=== PATIENT | male | born 1950 | race Caucasian/White ===

== ENCOUNTER → 2017-04-17 | Outpatient (CLI) | payer OTHER ==
--- NOTE | 2017-04-17 09:33 | MR ---
EXAMINATION TYPE: MR lumbar spine wo con DATE OF EXAM: 04/17/2017 8:07 AM COMPARISON: NONE HISTORY: Lumbar Radiculopathy Multiplanar, MultiSpin echo imaging of the lumbar spine was performed. L1-L2: Normal disc appearance without desiccation. No herniation, protrusion or disc bulging. No ca nal stenosis is present. Foramina are patent bilaterally. L2-L3: Normal disc appearance without desiccation. No herniation, protrusion or disc bulging. No ca nal stenosis is present. Foramina are patent bilaterally. L3-L4: Mild disc desiccation. Mild circumferential disc bulge with mild effacement of the ventral the keshav sac. Constriction of the thecal sac however no evidence for central stenosis at this time. L4-L5: Mild to moderate disc desiccation. Moderate circumferential disc bulge with associated hypertr ophy of the ligamentum flavum and facet joint arthropathy contributing to at least moderate central s tenosis. There is bilateral foraminal encroachment right greater than left. L5-S1: Normal disc appearance without desiccation. No herniation, protrusion or disc bulging. No ca nal stenosis is present. Foramina are patent bilaterally. Lumbar segments are intact. No paraspinal masses are identified. Conus medullaris has a normal appe arance. IMPRESSION: 1. Degenerative disc disease as discussed. 2. Moderate central stenosis at L4-5. See above.
== END | disposition home or self-care (01) ==
LOC: RADMRIMAIN 07:32
PROVIDERS: ATTEND Family Medicine
DX: M51.16 Intervertebral disc disorders with radiculopathy, lumbar region (principal); M48.061 Spinal stenosis, lumbar region without neurogenic claudication
CPT/HCPCS: 72148

== ENCOUNTER 2019-02-04 07:29 | Day surgery (SDC) | payer MEDICARE, OTHER ==
[2019-02-02 10:13] VITALS: BMI 28.2
[~2019-02-04 07:29] MED LIST: LACTATED RINGERS 1,000 ML IV SCH; LIDOCAINE 1% 20 ML VIAL (10MG/ML) FOR IV START INTRADERMA PRN
[2019-02-04 07:51] VITALS: RESP 16; TEMP 96.8
[2019-02-04] MEDS ORDERED: LIDOCAINE 1% INJ 10MG/ML (20 ML MDV) ONE (08:29)
[2019-02-04] MEDS ORDERED: PROPOFOL 10 MG/ML 20 ML VIAL IV ONE (08:29)
--- NOTE | 2019-02-04 08:47 | P.PCN ---
Date of Procedure: 02/04/19 Procedure(s) Performed: BRIEF HISTORY: Patient is a 68-year-old pleasant white male scheduled for an elective colonoscopy as a part of value should prior history of colon polyps. Last colonoscopy was 5 years ago. PROCEDURE PERFORMED: Colonoscopy. PREOPERATIVE DIAGNOSIS: History of colon polyps. IV sedation per Anesthesia. PROCEDURE: After informed consent was obtained, the patient, was brought into the endoscopy unit. IV sedation was administered by Anesthesia under continuous monitoring. Digital rectal examination was normal. Initially the Olympus CF-160 flexible video colonoscope was then inserted in the rectum, gradually advanced into the cecum without any difficulty. Careful examination was performed as the scope was gradually being withdrawn. Ileocecal valve and the appendiceal orifice were visualized and appeared normal. Prep was fair. Mucosa of the cecum, ascending colon, transverse colon, descending colon, sigmoid colon, and rectum appeared normal. Retroflexion was performed in the rectum and no lesions were seen. The patient tolerated the procedure well. IMPRESSION: Normal-appearing colon from rectum to cecum with no evidence of colitis or colorectal neoplasia. RECOMMENDATIONS: Findings of this examination were discussed with the patient as well as his family. He was advised to have a repeat surveillance colonoscopy in now 5 years from now because of the prior history of colon polyps..
[2019-02-04 09:12] VITALS: BP 126/77; PULSE 68
== END 2019-02-04 09:35 | disposition home or self-care (01) ==
LOC: ORWHC2ENDO 07:29
PROVIDERS: ATTEND Internal Medicine Gastroenterology
DX: Z12.11 Encounter for screening for malignant neoplasm of colon (principal); Z86.010 Personal history of colon polyps; I25.10 Atherosclerotic heart disease of native coronary artery without angina pectoris; N40.0 Benign prostatic hyperplasia without lower urinary tract symptoms; E78.5 Hyperlipidemia, unspecified; Z87.891 Personal history of nicotine dependence; I10 Essential (primary) hypertension; E11.9 Type 2 diabetes mellitus without complications; Z95.5 Presence of coronary angioplasty implant and graft; Z79.02 Long term (current) use of antithrombotics/antiplatelets; Z79.82 Long term (current) use of aspirin; Z79.899 Other long term (current) drug therapy
CPT/HCPCS: J2001; J2704; G0105; 45378

== ENCOUNTER → 2019-05-14 | Outpatient (CLI) | payer MEDICARE, OTHER ==
--- NOTE | 2019-05-16 08:21 | NM ---
EXAMINATION TYPE: NM hepatobiliary w EF DATE OF EXAM: 05/14/2019 COMPARISON: NONE HISTORY: Abdominal clinical findings, epigastric pain and heartburn, reflux and nausea, diarrhea TECHNIQUE: After the intravenous administration of 4.74 mCi Tc 99m Mebrofenin hepatobiliary scintigra phy is performed. Immediate images post injection. FINDINGS: There is satisfactory initial accumulation of tracer by the liver. The gallbladder is visualized wit hin 16 minutes. The small bowel activity is noted within 38 minutes. At one hour 8 ounces of oral e nsure plus is given to mimic CCK and gallbladder ejection fraction is calculated at 57 %, in the norm al range. Therefore there is no scintigraphic evidence of cystic or common bile duct obstruction to suggest acute cholecystitis or gallbladder dyskinesia. IMPRESSION: Exam is within normal limits.
== END | disposition home or self-care (01) ==
LOC: RADNMMAIN 06:55
PROVIDERS: ATTEND Family Medicine
DX: R68.89 Other general symptoms and signs (principal); Z88.2 Allergy status to sulfonamides; Z88.8 Allergy status to other drugs, medicaments and biological substances
CPT/HCPCS: 78226; A9537

== ENCOUNTER → 2020-10-19 | Outpatient (CLI) | payer MEDICARE, OTHER ==
[2020-10-19 08:50] LABS: Basophils % (A) 1 %; Eosinophils # (A) 0.1 k/uL (0-0.7); Eosinophils % (A) 2 %; HCT 43.6 % (39.0-53.0); HGB 15.4 gm/dL (13.0-17.5); Lymphocytes # (A) 1.2 k/uL (1.0-4.8); Lymphocytes % (A) 22 %; MCH 34.4 pg (25.0-35.0); MCHC 35.3 g/dL (31.0-37.0); MCV 97.3 fL (80.0-100.0); Mean Platelet Volume 6.7; Monocytes # (A) 0.4 k/uL (0-1.0); Monocytes % (A) 7 %; Neutrophils # (A) 3.5 k/uL (1.3-7.7); Neutrophils % (A) 67 %; Platelet Count 194 k/uL (150-450); RBC 4.48 m/uL (4.30-5.90); WBC 5.3 k/uL (3.8-10.6)
[2020-10-19 09:00] LABS: African American GFR (CKD) >90 (>60 ml/min/1.73 sqM); Anion Gap 7 mmol/L; Blood Urea Nitrogen 16 mg/dL (9-20); Calcium 8.9 mg/dL (8.4-10.2); Carbon Dioxide 29 mmol/L (22-30); Chloride 106 mmol/L (98-107); Glucose 114 mg/dL (74-99); Non-African American GFR(CKD) 80 (>60 ml/min/1.73 sqM); Potassium 4.4 mmol/L (3.5-5.1); Sodium 142 mmol/L (137-145)
[2020-10-19 09:13] LABS: Prothrombin Time 10.3 sec (9.0-12.0)
--- NOTE | 2020-10-19 09:30 | XR ---
EXAMINATION TYPE: XR chest 2V DATE OF EXAM: 10/19/2020 COMPARISON: Chest x-ray 02/20/2010 HISTORY: Z01.818, preop TECHNIQUE: Frontal and lateral views of the chest are obtained. FINDINGS: There is no focal air space opacity, pleural effusion, or pneumothorax seen. The cardiac silhouette size is within normal limits. The osseous structures are intact, acromion clavicular dara nt arthropathy is noted. IMPRESSION: No acute cardiopulmonary process.
[2020-10-19 09:54] LABS: Appearance,Urine Clear (Clear); Bilirubin,Urine Negative (Negative); Blood,Urine Negative (Negative); Color,Urine Yellow; Glucose,Urine (UA) Negative (Negative); Ketones,Urine Trace (Negative); Leukocyte Esterase,Urine Negative (Negative); Nitrite,Urine Negative (Negative); PH, Urine 6.5 (5.0-8.0); Protein,Urine Negative (Negative); Specific Gravity,Urine 1.017 (1.001-1.035); Urobilinogen,Urine <2.0 mg/dL (<2.0)
== END | disposition home or self-care (01) ==
LOC: LABPAT 08:02
PROVIDERS: ATTEND Orthopaedic Surgery Orthopaedic Surgery of the Spine
DX: Z01.818 Encounter for other preprocedural examination (principal); M48.00 Spinal stenosis, site unspecified; Z79.01 Long term (current) use of anticoagulants
CPT/HCPCS: 36415; 71046; 80048; 81003; 85025; 85610; 85730; 86850; 86900; 86901; 87070

== ENCOUNTER 2020-11-14 11:20 | Day surgery (SDC) | payer MEDICARE, OTHER ==
[2020-10-25 09:21] VITALS: BMI 28.2
[~2020-11-14 11:20] MED LIST changes: +DEXAMETHASONE SOD PHOSPHATE 4 MG/ML 1 ML VIAL IV ONE; +FAMOTIDINE 20 MG/2 ML VIAL IV PRN; +HYDROmorphone 0.5 MG/0.5 ML SYRINGE IVP PRN; -LIDOCAINE 1% 20 ML VIAL (10MG/ML) FOR IV START INTRADERMA PRN; +ONDANSETRON 4 MG/2 ML VIAL IVP ONE; +ceFAZolin 1,000 MG in SODIUM CHLORIDE 0.9% IRRIGATIO 1,000 ML IRRIGATION PRN
[2020-11-14 11:48] VITALS: TEMP 97.4
[2020-11-14 11:57] LABS: Glucose,Whole Blood 104 mg/dL (75-99)
[2020-11-14] MEDS ORDERED: MIDAZOLAM 2 MG/2 ML VIAL ONE (12:10)
[2020-11-14 12:55] VITALS: RESP 16
--- NOTE | 2020-11-14 13:08 | P.PN ---
Progress Note - Text Progress Note Date: 11/14/20 The patient was scheduled for lumbar decompression and fusion today with our service. He had been evaluated preoperatively and had seen his insurance administrator as well. He has been cleared by medicine and cardiology for his surgery today. However today in preoperative holding area and then in the operating room the patient was found have significant episodes of bradycardia and bigeminy. He was essentially asymptomatic and talking and conversant entire time. He did not complain of any shortness breath or chest pain. He was evaluated in the operating room as he would have bouts of regular sinus rhythm. He went into a bradycardic state with bigeminy which was prolonged. He was monitored by anesthesia and had treatment but was not having any response despite this. The events were recorded as per anesthesia service. Despite having cardiac clearance the patient was having abnormal cardiac rhythm and they're unable to have adequate blood pressure monitoring. Anesthesia did not feel comfortable with proceeding with the surgical procedure today. We discussed this and I agree. We will cancel his surgery for today. I discussed this with the family. I've been trying to get hold of his family. He understands the situation with his cardiac rhythms and we will was on surgery. He is currently he is symptomatically and the plan from anesthesia is to allow him to be discharged home with close follow-up with his insurance administrator. Our office will contact him in regard for possible rescheduling and see us evaluated again by cardiology.
[2020-11-14 13:56] VITALS: BP 149/88; PULSE 52
== END 2020-11-14 14:24 | disposition home or self-care (01) ==
LOC: OR 11:20 → EDSTATUS 12:45 → OR 14:24
PROVIDERS: ATTEND Orthopaedic Surgery Orthopaedic Surgery of the Spine
DX: M47.816 Spondylosis without myelopathy or radiculopathy, lumbar region (principal); Z53.8 Procedure and treatment not carried out for other reasons; M43.16 Spondylolisthesis, lumbar region; M79.18 Myalgia, other site; Z20.822 Contact with and (suspected) exposure to COVID-19; R00.1 Bradycardia, unspecified; M51.36 Other intervertebral disc degeneration, lumbar region; I11.9 Hypertensive heart disease without heart failure; E11.9 Type 2 diabetes mellitus without complications; E78.5 Hyperlipidemia, unspecified; H91.90 Unspecified hearing loss, unspecified ear; Z85.828 Personal history of other malignant neoplasm of skin; Z97.3 Presence of spectacles and contact lenses; Z79.82 Long term (current) use of aspirin; Z79.899 Other long term (current) drug therapy; Z88.8 Allergy status to other drugs, medicaments and biological substances; Z98.890 Other specified postprocedural states; Z87.891 Personal history of nicotine dependence
CPT/HCPCS: 86900; 86901; 86850; 87635; 36415; 22630; J2250; J2405

== ENCOUNTER → 2020-11-26 | Outpatient (CLI) | payer MEDICARE, OTHER ==
[2020-11-26 11:42] LABS: African American GFR (CKD) 79.5 (60.0-200.0); Anion Gap 5.4 mmol/L (4.00-12.00); BUN/Creat Ratio 19.09 Ratio (12.00-20.00); Calcium 8.6 mg/dL (8.7-10.3); Carbon Dioxide 28.6 mmol/L (21.6-31.8); Magnesium 2.3 mg/dL (1.5-2.4); Non-African American GFR(CKD) 68.6 (60.0-200.0); Potassium 4.6 mmol/L (3.5-5.5)
== END | disposition home or self-care (01) ==
LOC: LABWHC1 07:02
PROVIDERS: ATTEND Internal Medicine Clinical Cardiac Electrophysiology
DX: I25.10 Atherosclerotic heart disease of native coronary artery without angina pectoris (principal); I49.3 Ventricular premature depolarization
CPT/HCPCS: 36415; 80048; 83735

== ENCOUNTER → 2021-01-18 | Outpatient (CLI) | payer MEDICARE, OTHER ==
[2021-01-18 08:21] LABS: HGB 16.4 gm/dL (13.0-17.5); MCH 34.8 pg (25.0-35.0); MCV 99.4 fL (80.0-100.0); Macrocytosis Slight; Mean Platelet Volume 7.8; Platelet Count 183 k/uL (150-450); Poikilocytosis Slight; RBC 4.73 m/uL (4.30-5.90); RDW 13.9 % (11.5-15.5); WBC 6.9 k/uL (3.8-10.6)
[2021-01-18 08:28] LABS: African American GFR (CKD) >90 (>60 ml/min/1.73 sqM); Anion Gap 8 mmol/L; Blood Urea Nitrogen 18 mg/dL (9-20); Carbon Dioxide 27 mmol/L (22-30); Chloride 106 mmol/L (98-107); Non-African American GFR(CKD) 89 (>60 ml/min/1.73 sqM); Potassium 4.2 mmol/L (3.5-5.1); Sodium 141 mmol/L (137-145)
== END | disposition home or self-care (01) ==
LOC: LABPAT 06:59
PROVIDERS: ATTEND Internal Medicine Clinical Cardiac Electrophysiology
DX: Z01.812 Encounter for preprocedural laboratory examination (principal); R00.2 Palpitations
CPT/HCPCS: 36415; 80051; 82565; 84520; 85027

== ENCOUNTER 2021-01-31 11:08 | Inpatient (IN) | payer MEDICARE, OTHER ==
[~2021-01-31 11:08] MED LIST changes: -DEXAMETHASONE SOD PHOSPHATE 4 MG/ML 1 ML VIAL IV ONE; -FAMOTIDINE 20 MG/2 ML VIAL IV PRN; -HYDROmorphone 0.5 MG/0.5 ML SYRINGE IVP PRN; -LACTATED RINGERS 1,000 ML IV SCH; -ONDANSETRON 4 MG/2 ML VIAL IVP ONE; +SODIUM CHLORIDE 0.9% 1,000 ML IV SCH; -ceFAZolin 1,000 MG in SODIUM CHLORIDE 0.9% IRRIGATIO 1,000 ML IRRIGATION PRN
[2021-01-31 12:11] LABS: Glucose,Whole Blood 107 mg/dL (75-99)
[2021-01-31] MEDS ORDERED: HEPARIN SODIUM,PORCINE 10,000 UNIT/ML 1 ML VIAL ONE (13:37)
[2021-01-31] MEDS ORDERED: fentaNYL (PF) 50 MCG/ML 2 ML AMP ONE (13:37)
[2021-01-31] MEDS ORDERED: diphenhydrAMINE 50 MG/ML 1 ML VIAL ONE (13:37)
[2021-01-31] MEDS ORDERED: MIDAZOLAM 2 MG/2 ML VIAL ONE (13:37)
[2021-01-31] MEDS ORDERED: HYDROmorphone (PF) 1 MG/ML ONE (13:37)
[2021-01-31] MEDS ORDERED: PROPOFOL 10 MG/ML 20 ML VIAL IV ONE (13:37)
[2021-01-31] MEDS ORDERED: LIDOCAINE 1% INJ 10MG/ML (20 ML MDV) ONE (13:38)
[2021-01-31] MEDS ORDERED: HEPARIN SOD,PORK IN 0.45% NACL 25,000 UNIT in 0.45% NACL 1 250ML.BAG IV ONE (13:40)
[2021-01-31] MEDS ORDERED: HEPARIN SODIUM (1,000 UNIT/ML) 1,000 UNIT in SODIUM CHLORIDE 0.9% 1,000 ML IRRIGATION ONE (13:41)
[2021-01-31] MEDS ORDERED: LIDOCAINE 1% INJ 10MG/ML (20 ML MDV) SQ ONE (14:21)
[2021-01-31] MEDS ORDERED: IOPAMIDOL-300 50ML BTL INJ ONE (16:17)
--- NOTE | 2021-01-31 16:29 | P.HPCAR ---
History of Present Illness This is Dr. 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 Failed sotalol 80 mg twice daily Known coronary artery disease but with preserved LV systolic function Type 2 diabetes Hypertension PLAN: EPS and ablation of the PVC focus in the left ventricle HPI Patient has had recurrent palpitations and ventricular bigeminy Very high PVC blood from the left ventricle line we treated with sotalol but this to not suppress the PVCs An EP study and ablation was recommended on account of high PVC but Presently the patient has preserved LV systolic function and has known coronary artery disease ROS: No fever chills or rigors, no cough, phlegm or expectoration, no nausea, vomiting or diarrhea, no hematuria, dysuria, no musculoskeletal complaints, no strokes or seizures, no skin lesions. EXAMINATION: Temperature 98.3, respirations 73, blood pressure 162/90 Breath sounds are clear no rhonchi no crackles No JVD line no lower extremity edema Soft abdomen nontender Breath sounds are clear S1-S2 is normal REVIEW OF LABS, ECG & MEDICAL DATA Glucose 107 PVCs and right bundle branch block morphology with upright QRS is in the inferior leads and negatively rate QRS is in the high lateral leads Upright QRS is all across the precordium Physical Exam Vitals: Vital Signs Temp Pulse Resp BP Pulse Ox 01/31/21 12:15 98.3 F 73 16 162/90 99 Intake and Output 01/31/21 01/31/21 01/31/21 06:59 14:59 22:59 Intake Total 616 Output Total 900 Balance 616 -900 Intake: IV 616 Output: Urine 900 Other: Weight 98.8 kg Past Medical History Past Medical History: Diabetes Mellitus, Hyperlipidemia, Hypertension, Prostate Disorder Additional Past Medical History / Comment(s): SEE H & P PROVIDED BY DR. MEDINA REGARDING CARDIAC HISTORY. Diet control type 2 diabetes,. Spinal stenosis. Hx skin canCER. History of Any Multi-Drug Resistant Organisms: None Reported Past Surgical History: Heart Catheterization With Stent, Orthopedic Surgery Additional Past Surgical History / Comment(s): 11/14/20 WAS SCHEDULED FOR LUMBAR DECOMPRESION AND FUSION , HOWEVER, IT WAS CANCELLED DUE TO CARDIAC ARRYTHMIA. rt knee surgery. lt elbow surgery. colonoscopy. lt hand sx Past Anesthesia/Blood Transfusion Reactions: No Reported Reaction Date of Last Stent Placement:: 2008 Past Psychological History: No Psychological Hx Reported Smoking Status: Former smoker Past Alcohol Use History: None Reported Additional Past Alcohol Use History / Comment(s): QUIT SMOKING 40 + YEARS AGO Past Drug Use History: None Reported - Past Family History Mother Family Medical History: No Reported History Physical Examination Vital Signs Temp Pulse Resp BP Pulse Ox 01/31/21 12:15 98.3 F 73 16 162/90 99 Intake and Output 01/31/21 01/31/21 01/31/21 06:59 14:59 22:59 Intake Total 616 Output Total 900 Balance 616 -900 Intake: IV 616 Output: Urine 900 Other: Weight 98.8 kg Results Current Medications Generic Name Dose Route Start Last Admin Trade Name Shawnq PRN Reason Stop Dose Admin Sodium Chloride 1,000 mls @ 20 mls/hr 01/31/21 07:25 01/31/21 12:14 Saline 0.9% IV 03/02/21 07:26 400 mls .Q24H BABAR Administration Intake and Output 01/31/21 01/31/21 01/31/21 06:59 14:59 22:59 Intake Total 616 Output Total 900 Balance 616 -900 Intake: IV 616 Output: Urine 900 Other: Weight 98.8 kg Patient Weight 02/01/21 06:59 Weight 98.8 kg
--- NOTE | 2021-01-31 16:33 | P.PRLE ---
RE: [place] Dear Emilyyeys Hawkins has ventricular bigeminy which has failed sotalol therapy He underwent a diagnostic EP study and successful radiofrequency ablation of the PVC focus This was on the anterior lateral base of the left ventricle Successful RF ablation was performed without any acute complications I will stop sotalol completely at this time he Thank you for entrusting me with the care of the patient Warm regards Sincerely David Medina
[2021-01-31] MEDS ORDERED: ACETAMINOPHEN TAB 325 MG TAB PO PRN (16:34)
[2021-01-31] MEDS ORDERED: ACETAMINOPHEN IV (For NPO) 1,000 MG in EMPTY BAG 1 BAG IVPB ONE (16:34)
--- NOTE | 2021-01-31 16:59 | P.EPPROC ---
- EP Procedure Note Electrophysiology Procedure Note: Diagnosis Ventricular bigeminy, frequent PVCs Failed sotalol therapy Coronary artery disease preserved LV systolic function Hypertension, Procedures performed Diagnostic EP study with attempted arrhythmia induction 3-D mapping PVC/VT ablation Intracardiac echo LV pacing and recording Details Patient was brought to the EP lab in a fasting state with informed consent was obtained prior to the procedure procedures performed under conscious sedation To venous sheaths placed in the right femoral vein, one venous sheaths in the right femoral artery The patient was having very frequent PVCs with a right bundle branch block morphology upright QRS is in the inferior leads and all precordial leads and a deep negative in aVL and Candor negative in lead 1 with a small initial R wave A long sheath was placed in the right femoral artery into the aorta The Pentaray catheter was placed for mapping Intracardiac echo cath was placed and diagnostic catheters were placed in the high right atrium and right ventricle Baseline measurements were as follows sinus cycle length 900 ms with frequent PVCs underlying right bundle branch block morphology, QRS 151 ms AR 159 and QT 446 ms AH 71 and HV 58 ms Sinus recovery times a 600, 540 ms were 802, 1207 and 1048 ms AV node Wenckebach block 3 and 50 ms Later burst stimulation was performed from the left ventricle for 4 ms down to 300 ms without induction of any VT Patient was having very frequent PVCs A Pentaray cath was placed in the left ventricle Intracardiac echo catheter was placed in the right atrium and in the right ventricle 3-D anatomical mapping of the aortic root aortic cusps and LV was performed. A small clear pericardial space was noted at the base of the left ventricle The Pentaray cath was placed in left ventricle and scar mapping as well as activation mapping was performed The earliest site of activation was found in the anterolateral aspect of the left ventricle just beyond the lytic root Later the mapping and ablation cath was placed and further detailed mapping was performed and the earliest site was mapped very carefully At the earliest site, a very early DP negative unipolar electrogram of -30 ms prior to the onset of the QRS is noted. The bipolar electrogram was also -30 ms prior to the onset of the QRS at the site RF energy 40 once was started and within 30 seconds the PVCs resolved Several RF lesions applied to the site Following that high output pacing was performed and non-capture was noted Following that burst ablation was performed from the LVOT area and from the base of the left ventricle but no inducible VT noted Patient is seen at IV heparin through the procedure After waiting for about 20 minutes no for the PVCs are noted and all catheters were removed Vascade was applied for the venous punctures Angio-Seal for the arterial puncture Patient tolerated the procedure well without any acute complications LV function was normal intracardiac echo Small pericardial space noted before starting the mapping procedure There is no change at the end of the procedure. Intracardiac echo and the pericardial space Result Successful PVC ablation in the left ventricle The PVC was eliminated at the site of earliest A grams with both bipolar and unipolar signals, -30 ms before the onset of the QRS width deep negative unipolar signals Plan Stop sotalol Continue aspirin
[2021-01-31] MEDS: ATORVASTATIN 40 MG TAB PO SCH (19:40)
[2021-01-31] MEDS: TAMSULOSIN 0.4 MG CAP.ER.24H PO SCH (19:40)
[2021-01-31] MEDS: METOPROLOL TARTRATE 12.5 MG TAB PO SCH (19:40)
[2021-02-01 09:39] LABS: Basophils % (A) 0 %; Eosinophils # (A) 0.1 k/uL (0-0.7); Eosinophils % (A) 1 %; HCT 45.1 % (39.0-53.0); HGB 15.6 gm/dL (13.0-17.5); Lymphocytes # (A) 1.1 k/uL (1.0-4.8); Lymphocytes % (A) 12 %; MCH 34.2 pg (25.0-35.0); MCHC 34.6 g/dL (31.0-37.0); MCV 98.8 fL (80.0-100.0); Macrocytosis Slight; Mean Platelet Volume 7.4; Monocytes # (A) 0.6 k/uL (0-1.0); Monocytes % (A) 7 %; Neutrophils % (A) 78 %; Platelet Count 171 k/uL (150-450); Poikilocytosis Slight; RBC 4.56 m/uL (4.30-5.90); RDW 14.3 % (11.5-15.5); WBC 8.9 k/uL (3.8-10.6)
--- NOTE | 2021-02-01 09:42 | US ---
EXAMINATION TYPE: US lower ext pseudo artery RT DATE OF EXAM: 02/01/2021 COMPARISON: NONE CLINICAL HISTORY: s/p ablation. Recent right groin approach cardiac ablation EXAM PERFORMED: Grayscale and color Doppler duplex imaging performed of the groin, post cardiac adriana ter to assess for pseudoaneurysm. SIDE PERFORMED: Right Color and Waveform Doppler performed to assess for the presence of pseudoaneurysm; Difficult and limited study due to having to scan around fem stop in right groin 12.7 x 3.8 x 4.6cm complex area within right groin that appears to extend down into right side of scr otal sac, visualized portions appear to have no flow at this time. IMPRESSION: Large inguinal hematoma. No pseudoaneurysm formation identified.
[2021-02-01] MEDS: ASPIRIN 81 MG PO SCH (09:53)
[2021-02-01] MEDS: lisinopriL 20 MG TAB PO SCH (09:53)
[2021-02-01] MEDS: METOPROLOL TARTRATE 12.5 MG TAB PO SCH ×2 (09:53→19:38)
[2021-02-01] MEDS: amLODIPine 5 MG TAB PO SCH (09:53)
--- NOTE | 2021-02-01 11:31 | US ---
EXAMINATION TYPE: US lower ext pseudo artery RT DATE OF EXAM: 02/01/2021 COMPARISON: NONE CLINICAL HISTORY: ? pseudoaneurysm R groin. Recent right groin approach cardiac ablation, doctor want ed a rescan after fem stop was removed EXAM PERFORMED: Grayscale and color Doppler duplex imaging performed of the groin, post cardiac adriana ter to assess for pseudoaneurysm. SIDE PERFORMED: Right Color and Waveform Doppler performed to assess for the presence of pseudoaneurysm; Is there ultrasound evidence of a pseudoaneurysm: yes, 7.6 x 2.3 x 3.8cm pseudoaneurysm seen that ap pears to be partially thrombosed, neck not seen well due to groin swelling, pseudoaneurysm appears to be separate from and superior to large hematoma seen on previous exam Is there evidence of AV shunting: no Is there a fluid collection present: large hematoma evaluated on previous exam IMPRESSION: 1. Following removal of the fem stop, pseudoaneurysm into the hematoma is identified.
--- NOTE | 2021-02-01 12:00 | P.PN ---
Subjective Progress Note Date: 02/01/21 HISTORY OF PRESENT ILLNESS: This is 70-year-old male who underwent successful PVC ablation in the left ventricle with Dr. Medina. Patient examined this morning at the bedside. He de nies chest pain or pressure. He denies shortness of breath. The patient complains of discomfort of the right groin. He states he got up to go to the bathroom and felt something "pop". Patient does have a large hematoma noted to right groin. PHYSICAL EXAM: VITAL SIGNS: Reviewed. GENERAL: Well-developed in no acute distress. NECK: Supple. No JVD or thyromegaly LUNGS: Respirations even and unlabored. Lungs essentially clear to auscultation bilaterally. HEART: Regular rate and rhythm. S1 and S2 heard. EXTREMITIES: Normal range of motion. No clubbing or cyanosis. Peripheral pulses intact. No lower extremity edema. Hematoma noted to right groin. ASSESSMENT: Ventricular bigeminy/frequent PVCs, status post PVC ablation in the right ventricle Hypertension Right groin hematoma PLAN: Continue current cardiac medications Femstop to be applied to right groin Obtain US to assess for pseudoaneurysm Further recommendations pending patient's course Nurse practitioner note has been reviewed by physician. Signing provider agrees with the documented findings, assessment, and plan of care. Objective - Vital Signs Vital signs: Vital Signs Temp 98.2 F 02/01/21 09:21 Pulse 78 02/01/21 09:21 Resp 17 02/01/21 09:21 BP 158/87 02/01/21 09:21 Pulse Ox 94 L 02/01/21 09:21 Intake & Output 01/31/21 02/01/21 02/01/21 18:59 06:59 18:59 Intake Total 616 Output Total 1120 120 Balance -504 -120 Weight 98.8 kg Intake: IV 616 Output: Urine 1120 120 Other: Voiding Method Urinal # Voids 1 - Labs CBC & Chem 7: 02/01/21 09:22 Labs: Abnormal Lab Results - Last 24 Hours (Table) 01/31/21 Range/Units 12:05 POC Glucose (mg/dL) 107 H (75-99) mg/dL
[2021-02-01] MEDS ORDERED: THROMBIN (BOVINE) 5,000 UNIT VIAL MISCELLANE ONE (13:00)
--- NOTE | 2021-02-01 14:34 | P.PN ---
Progress Note - Text Progress Note Date: 02/01/21 evaluated right groin for requested treatment of pseudoaneurysm. [place] vessels not well-defined under ultrasound, cannot delineate extent of leak, neck of pseudoaneurysm. Defer to vascular surgery, Petra Carmichael informed via Perfect serve.
--- NOTE | 2021-02-01 15:32 | US ---
Discontinued pseudoaneurysm compression with thrombin injection HISTORY: Abnormal right lower extremity Doppler duplex, pseudoaneurysm status post catheterization Ultrasound performed in the right grown for evaluation of patient's pseudoaneurysm. Real-time using grayscale, color Doppler imaging the [place] vasculature in the right groin was not we ll defined. A definitive neck was not identified with certainty. IMPRESSION: Percutaneous treatment of patient's pseudoaneurysm was aborted due to poor definition of patient's pseudoaneurysm, recommend vascular surgery consult, Lakisha Carmichael informed by sridevi paulino .
[2021-02-01] MEDS: ATORVASTATIN 40 MG TAB PO SCH (19:38)
[2021-02-01] MEDS: TAMSULOSIN 0.4 MG CAP.ER.24H PO SCH (19:38)
--- NOTE | 2021-02-01 21:30 | CT ---
EXAMINATION TYPE: CT lower extremity RT w con DATE OF EXAM: 02/01/2021 COMPARISON: None HISTORY: Right femoral pseudoaneurysm. CT DLP: 1046.6 mGycm Automated exposure control for dose reduction was used. CONTRAST: Performed with IV Contrast, patient injected with 100ml mL of Isovue 300. Images obtained from the mid ileum to the proximal tibia with IV contrast. There are 3-D post process ed images. There is arterial flow in the right external iliac artery and internal iliac artery. There is arteria l flow in the right femoral artery. There is contrast pooling seen in the soft tissues anterior to th e proximal right femoral artery which is in multiple areas which are contiguous. This is consistent w ith large pseudoaneurysm. This measures overall 4 x 1.5 cm. There is extensive soft tissue swelling a nd increased density anterior to the right femoral artery consistent with hematoma over the right cipriano in. This extends into the right scrotum. The mid and distal femoral artery appear normal. Popliteal artery appears normal. The tibial artery i s intact. I see no evidence of arterial stenosis. IMPRESSION: Large pseudoaneurysm anterior to the femoral artery. There is surrounding right groin hematoma. Subcu taneous edema and swelling and bruising.
[2021-02-02] MEDS: ASPIRIN 81 MG PO SCH (08:36)
[2021-02-02] MEDS: lisinopriL 20 MG TAB PO SCH (08:36)
[2021-02-02] MEDS: METOPROLOL TARTRATE 12.5 MG TAB PO SCH ×2 (08:36→19:43)
[2021-02-02] MEDS: amLODIPine 5 MG TAB PO SCH (08:36)
--- NOTE | 2021-02-02 10:04 | P.PN ---
Subjective Progress Note Date: 02/02/21 This is 70-year-old gentleman was brought in for outpatient procedure for ablation of the PVCs. Patient had successful procedure done by Dr. Medina. Patient apparently had some problem with Angio-Seal and developed hematoma under pseudoaneurysm. Patient had ultrasound and also computed tomography scan. Radiologist to try to close the aneurysm but could not find it on the ultrasound. Computed tomography scan however showed a large pseudoaneurysm along with hematoma. Surgical consult was requested and waiting for Dr. Rowley 's recommendations regarding further management. Patient is still complaining of pain. He does have some swelling in the groin but no oozing or bleeding from the site. Denies any chest pain. Vital signs are stable Objective - Vital Signs Vital signs: Vital Signs Temp 98.1 F 02/02/21 07:00 Pulse 90 02/02/21 07:00 Resp 16 02/02/21 07:00 BP 115/78 02/02/21 07:00 Pulse Ox 96 02/02/21 07:00 Intake & Output 02/01/21 02/02/21 02/02/21 18:59 06:59 18:59 Output Total 120 Balance -120 Output: Urine 120 Other: Voiding Method Urinal # Voids 1 3 - Exam GENERAL EXAM: Patient is alert and oriented and doesn't appear to be in any acute distress HEENT: Normocephalic. Normal reaction of pupils, equal size, normal range of extraocular motion. No erythema or exudates in the throat. NECK: No masses, no nuchal rigidity. CHEST: No chest wall deformity. LUNGS: Equal air entry with no crackles or wheeze. HEART: S1 and S2 normal with no audible mumurs or gallops. Regular rhythm, femorals equal on both sides.. ABDOMEN: No hepatosplenomegaly, normal bowel sounds, no guarding or rigidity. SKIN: No rashes CENTRAL NERVOUS SYSTEM: No focal deficits. EXTREMITIES: No cyanosis, clubbing or edema. Swelling in the right groin hematomas and ecchymosis of the scrotum - Labs CBC & Chem 7: 02/01/21 09:22 Assessment and Plan (1) Pseudoaneurysm Current Visit: Yes Status: Acute Code(s): I72.9 - ANEURYSM OF UNSPECIFIED SITE SNOMED Code(s): 536683468 (2) PVC's (premature ventricular contractions) Current Visit: Yes Status: Acute Code(s): I49.3 - VENTRICULAR PREMATURE DEPOLARIZATION SNOMED Code(s): 41837704 Plan: Patient is status post ablation for PVCs. Developed a pseudoaneurysm and hematoma. Waiting for vascular surgical input regarding management of the pseudoaneurysm.
[2021-02-02] MEDS ORDERED: LIDOCAINE 1% INJ 10MG/ML (20 ML MDV) SQ ONE (16:26)
[2021-02-02] MEDS ORDERED: THROMBIN (BOVINE) 5,000 UNIT VIAL MISCELLANE ONE ×3 (16:45→17:24)
--- NOTE | 2021-02-02 17:49 | P.OP ---
Date of Procedure: 02/02/21 Preoperative Diagnosis: Right common femoral artery pseudoaneurysm. Postoperative Diagnosis: Same. Procedure(s) Performed: Ultrasound-guided thrombin injection of right common femoral artery pseudoaneurysm. Implants: None Anesthesia: local (1% Xylocaine.) Surgeon: Marco A Bear Estimated Blood Loss (ml): 3 IV fluids (ml): 0 Urine output (ml): 0 Pathology: none sent Condition: stable Disposition: no change Indications for Procedure: Patient is a 70-year-old male who recently underwent cardiac ablation via right femoral artery approach. Post procedure he was found be suffering from a relatively large pseudoaneurysm. Workup of this demonstrated in my opinion a 4 mm neck as imaged on computed tomography scan. Was felt the patient to would be a good candidate for thrombin injection to control the pseudoaneurysm. The procedure, risks and benefits were discussed with the patient and the patient was proceed. Description of Procedure: Patient was laid supine in his bed the right inguinal area sterilely prepped in usual manner. Utilizing ultrasound guidance the pseudoaneurysm was identified. 1% Xylocaine was utilized for local anesthesia. Through this anesthetized area a spinal needle was advanced under ultrasound guidance into the pseudoaneurysm where a 2000 units of thrombin was injected to cause thrombosis of the pseudoaneurysm. The patient remained stable with a palpable dorsalis pedis pulse which he had prior to the beginning of the procedure. Plan: Overnight observation with repeat ultrasound of his pseudoaneurysm tomorrow. Assuming repeat ultrasound demonstrates a continued thrombosis no further recommendations will be forthcoming.
[2021-02-02] MEDS: TAMSULOSIN 0.4 MG CAP.ER.24H PO SCH (19:42)
[2021-02-02] MEDS: ATORVASTATIN 40 MG TAB PO SCH (19:42)
[2021-02-03] MEDS: lisinopriL 20 MG TAB PO SCH (08:00)
[2021-02-03] MEDS: METOPROLOL TARTRATE 12.5 MG TAB PO SCH (08:00)
[2021-02-03] MEDS: ASPIRIN 81 MG PO SCH (08:00)
[2021-02-03] MEDS: amLODIPine 5 MG TAB PO SCH (08:00)
--- NOTE | 2021-02-03 11:46 | P.DS ---
Providers Date of admission: 02/02/21 11:10 Attending physician: David Medina Consults: 02/01/21 14:51 Consult Physician Routine Consulting Provider: Alexsander Rowley Consult Reason/Comments: psuedo aneursym of r groin post ep studdy Do you want consulting provider notified?: Yes Primary care physician: Hunter Tamayo MD - Discharge Diagnosis(es) (1) Pseudoaneurysm Current Visit: Yes Status: Acute (2) PVC's (premature ventricular contractions) Current Visit: Yes Status: Acute Hospital Course: This patient came as an outpatient for ablation for PVCs. Patient had a successful procedure. Apparently there was probably the closer device, Angio-Seal. Patient developed a hematoma and pseudoaneurysm in the right groin. Radiologist could not infuse thrombin because of poor visualization. Computed tomography scan however confirm the presence of pseudoaneurysm. Yesterday vascular surgeon was able to inject thrombin. Patient is feeling much better. The surgeons suggested that patient could be discharged home as long as the ultrasound shows proper closure of the pseudoaneurysm. Patient is feeling better. His pain is much better. His lungs are clear. Heart is regular. As long as this study shows proper findings and comfortable with Dr. Power, the she could be discharged home. Follow-up with Dr. Medina as an outpatient. Follow home medication except discontinuing sotalol Plan - Discharge Summary Discharge Rx Participant: No New Discharge Prescriptions: Discontinued Glasgow-3/Dha/Epa/Fish Oil [Fish Oil EC 1,200 mg Softgel] 1 each PO DAILY Sotalol [Betapace] 40 mg PO BID No Action Atorvastatin [Lipitor] 40 mg PO HS Alfuzosin HCl [Uroxatral] 10 mg PO HS valACYclovir HCL [Valacyclovir] 1,000 mg PO HS Tolterodine [Detrol] 2 mg PO QAM Metoprolol Tartrate [Lopressor] 12.5 mg PO BID Vitamin B Complex 1 each PO DAILY Ubidecarenone [Co Q-10] 400 mg PO DAILY Ergocalciferol [Vitamin D2 (DRISDOL)] 50,000 units PO SUWE Cinnamon Bark [Cinnamon] 2,000 mg PO DAILY Alpha Lipoic Acid. 600 mg PO DAILY Magnesium Oxide 100 mg PO DAILY amLODIPine BESYLATE/BENAZEPRIL [Lotrel 5-40 MG] 1 cap PO QAM Aspirin [Adult Low Dose Aspirin EC] 81 mg PO DAILY Discharge Medication List Alfuzosin HCl [Uroxatral] 10 mg PO HS 03/29/14 [History] Atorvastatin [Lipitor] 40 mg PO HS 03/29/14 [History] valACYclovir HCL [Valacyclovir] 1,000 mg PO HS 03/29/14 [History] Alpha Lipoic Acid. 600 mg PO DAILY 02/02/19 [History] Cinnamon Bark [Cinnamon] 2,000 mg PO DAILY 02/02/19 [History] Ergocalciferol [Vitamin D2 (DRISDOL)] 50,000 units PO SUWE 02/02/19 [History] Metoprolol Tartrate [Lopressor] 12.5 mg PO BID 02/02/19 [History] Tolterodine [Detrol] 2 mg PO QAM 02/02/19 [History] Ubidecarenone [Co Q-10] 400 mg PO DAILY 02/02/19 [History] Vitamin B Complex 1 each PO DAILY 02/02/19 [History] amLODIPine BESYLATE/BENAZEPRIL [Lotrel 5-40 MG] 1 cap PO QAM 10/25/20 [History] Aspirin [Adult Low Dose Aspirin EC] 81 mg PO DAILY 01/28/21 [History] Magnesium Oxide 100 mg PO DAILY 01/28/21 [History] Follow up Appointment(s)/Referral(s): David Medina MD [STAFF PHYSICIAN] - 1 Week Patient Instructions/Handouts: Cardiac Ablation (DC) Activity/Diet/Wound Care/Special Instructions: Post EP study - Ablation instructions 1. Keep access sites dry for 2 days. 2. No heavy lifting or straining for 2 days. 3. Avoid bending the hips repeatedly for 2 days. 4. You may go up and down stairs slowly Call if the following is noted 1. Bleeding, increasing swelling or pain at the access sites. 2. Increasing chest discomfort, especially upon taking a deep breath. 3. Increasing shortness of breath, at rest or with exertion. 4. Undue cough / phlegm 5. Difficulty or pain while swallowing. 6. Pain or change in color in the extremities. 7. Fever, chills, rigors. 8. Increasing headache or neurologic symptoms. 9. Dizziness, fainting, palpitations Stop sotalol Stop fish oil Continue other medications Discharge Disposition: HOME SELF-CARE
--- NOTE | 2021-02-03 14:18 | US ---
EXAMINATION TYPE: US lower ext pseudo artery RT DATE OF EXAM: 02/03/2021 COMPARISON: NONE CLINICAL HISTORY: pseudoaneurysm. EXAM PERFORMED: Grayscale and color Doppler duplex imaging performed of the groin, post cardiac adriana ter to assess for pseudoaneurysm. SIDE PERFORMED: Right side Color and Waveform Doppler performed to assess for the presence of pseudoaneurysm; Is there ultrasound evidence of a pseudoaneurysm: Yes Is there evidence of AV shunting: No Is there a fluid collection present: Yes There is irregular hypoechoic area measuring 5.4 x 2 cm consistent with thrombosed pseudoaneurysm. No blood flow seen in the pseudoaneurysm post injection. IMPRESSION:
[2021-02-03 14:25] VITALS: BP 144/72; PULSE 74; RESP 17; TEMP 98.1
--- NOTE | 2021-02-03 14:38 | P.PN ---
Progress Note - Text Progress Note Date: 02/03/21 Reviewed ultrasound of the femoral artery. Pseudoaneurysm is thrombosed. Patient has palpable peripheral pulses per nursing and ok for discharge home from a vascular standpoint.
== END 2021-02-03 14:56 | disposition home or self-care (01) | DRG 274 ==
LOC: CATHEP 11:08 → 6NMEDSUR 16:16 → CATHEP 02-02 11:10 → 6NMEDSUR 02-02 11:10
PROVIDERS: ADMIT Internal Medicine Clinical Cardiac Electrophysiology; ATTEND Internal Medicine Clinical Cardiac Electrophysiology
PROC: 4A023FZ Measurement of Cardiac Rhythm, Percutaneous Approach (ICD-10-PCS; 2021-01-31)
PROC: 4A0234Z Measurement of Cardiac Electrical Activity, Percutaneous Approach (ICD-10-PCS; 2021-01-31)
PROC: 02K83ZZ Map Conduction Mechanism, Percutaneous Approach (ICD-10-PCS; 2021-01-31)
PROC: 02583ZZ Destruction of Conduction Mechanism, Percutaneous Approach (ICD-10-PCS; 2021-01-31 12:30)
PROC: 3E053GC Introduction of Other Therapeutic Substance into Peripheral Artery, Percutaneous Approach (ICD-10-PCS; principal; 2021-02-02)
DX: I72.4 Aneurysm of artery of lower extremity (principal); S30.1XXA Contusion of abdominal wall, initial encounter; E11.9 Type 2 diabetes mellitus without complications; E78.5 Hyperlipidemia, unspecified; I49.3 Ventricular premature depolarization; I45.10 Unspecified right bundle-branch block; I25.10 Atherosclerotic heart disease of native coronary artery without angina pectoris; I10 Essential (primary) hypertension; Z85.828 Personal history of other malignant neoplasm of skin; Z87.891 Personal history of nicotine dependence; Z86.79 Personal history of other diseases of the circulatory system; Z88.8 Allergy status to other drugs, medicaments and biological substances
CPT/HCPCS: 36002; 76536; 85025; 93654; 93662; 93975

== ENCOUNTER → 2021-04-04 | Outpatient (CLI) | payer MEDICARE, OTHER ==
--- NOTE | 2021-04-04 09:21 | XR ---
EXAMINATION TYPE: XR chest 2V DATE OF EXAM: 04/04/2021 COMPARISON: 10/19/2020 TECHNIQUE: PA and lateral views submitted. HISTORY: Cough FINDINGS: The lungs are clear and there is no pneumothorax, pleural effusion, or focal pneumonia. Linear hoff ges lung bases most typical of atelectasis. Heart size normal. No overt failure. IMPRESSION: 1. No acute process.
== END | disposition home or self-care (01) ==
LOC: LABWHC1 08:01
PROVIDERS: ATTEND Orthopaedic Surgery Orthopaedic Surgery of the Spine
DX: Z01.818 Encounter for other preprocedural examination (principal); M47.9 Spondylosis, unspecified; R05 Cough
CPT/HCPCS: 71046; 80053; 81003; 85025; 85610; 85730; 86850; 86900; 86901; 87070

== ENCOUNTER 2021-04-15 06:16 | Inpatient (IN) | payer MEDICARE, OTHER ==
[2021-04-04 09:25] LABS: Partial Thromboplastin Time 26.5 sec (22.0-30.0); Prothrombin Time 10.7 sec (9.0-12.0)
[2021-04-04 09:49] LABS: ALT 70 U/L (4-49); AST 47 U/L (17-59); African American GFR (CKD) >90 (>60 ml/min/1.73 sqM); Albumin 4.6 g/dL (3.5-5.0); Alkaline Phosphatase 127 U/L (38-126); Anion Gap 7 mmol/L; Blood Urea Nitrogen 14 mg/dL (9-20); Calcium 9.2 mg/dL (8.4-10.2); Carbon Dioxide 30 mmol/L (22-30); Chloride 104 mmol/L (98-107); Glucose 112 mg/dL (74-99); Non-African American GFR(CKD) 89 (>60 ml/min/1.73 sqM); Potassium 4.5 mmol/L (3.5-5.1); Sodium 141 mmol/L (137-145); Total Bilirubin 0.9 mg/dL (0.2-1.3); Total Protein 7.5 g/dL (6.3-8.2)
[2021-04-04 10:01] LABS: Basophils # (A) 0.1 k/uL (0-0.2); Basophils % (A) 1 %; Eosinophils # (A) 0.1 k/uL (0-0.7); Eosinophils % (A) 1 %; HCT 46.1 % (39.0-53.0); HGB 15.7 gm/dL (13.0-17.5); Lymphocytes # (A) 1.3 k/uL (1.0-4.8); Lymphocytes % (A) 17 %; MCH 32.8 pg (25.0-35.0); MCV 96.3 fL (80.0-100.0); Mean Platelet Volume 7.3; Monocytes # (A) 0.4 k/uL (0-1.0); Monocytes % (A) 5 %; Neutrophils # (A) 5.5 k/uL (1.3-7.7); Neutrophils % (A) 74 %; Platelet Count 196 k/uL (150-450); RBC 4.79 m/uL (4.30-5.90); RDW 13.3 % (11.5-15.5); WBC 7.4 k/uL (3.8-10.6)
[2021-04-04 10:20] LABS: Appearance,Urine Clear (Clear); Bilirubin,Urine Negative (Negative); Blood,Urine Negative (Negative); Color,Urine Yellow; Glucose,Urine (UA) Negative (Negative); Ketones,Urine 1+ (Negative); Leukocyte Esterase,Urine Negative (Negative); Nitrite,Urine Negative (Negative); Protein,Urine Negative (Negative); Specific Gravity,Urine 1.014 (1.001-1.035); Urobilinogen,Urine <2.0 mg/dL (<2.0)
[2021-04-10 10:11] VITALS: BMI 28.2
[2021-04-15] MEDS ORDERED: MIDAZOLAM 2 MG/2 ML VIAL IV PRN (06:30)
[2021-04-15] MEDS ORDERED: DEXAMETHASONE SOD PHOSPHATE 4 MG/ML 1 ML VIAL IV ONE (06:30)
[2021-04-15] MEDS ORDERED: ONDANSETRON 4 MG/2 ML VIAL IVP ONE (06:30)
[2021-04-15 06:54] LABS: Glucose,Whole Blood 115 mg/dL (75-99)
[2021-04-15] MEDS ORDERED: LACTATED RINGERS 1,000 ML IV ONE ×2 (06:54→09:15)
[2021-04-15] MEDS ORDERED: HYDROmorphone 0.5 MG/0.5 ML SYRINGE IVP PRN ×2 (07:00→11:04)
[2021-04-15] MEDS ORDERED: fentaNYL (PF) 50 MCG/ML 2 ML AMP ONE (07:44)
[2021-04-15] MEDS ORDERED: MIDAZOLAM 2 MG/2 ML VIAL ONE (07:44)
[2021-04-15] MEDS ORDERED: LIDOCAINE 1% INJ 10MG/ML (20 ML MDV) ONE (07:44)
[2021-04-15] MEDS ORDERED: GLYCOPYRROLATE 0.2 MG/ML 2 ML VIAL ONE (07:44)
[2021-04-15] MEDS ORDERED: SUCCINYLCHOLINE CHLORIDE VIAL 200 MG/10 ML VIAL IV ONE (07:44)
[2021-04-15] MEDS ORDERED: ROCURONIUM 10 MG/ML (5 ML VIAL) IV ONE (07:44)
[2021-04-15] MEDS ORDERED: ePHEDrine 50 MG/ML 1 ML AMP ONE (07:44)
[2021-04-15] MEDS ORDERED: NEOSTIGMINE 1 MG/ML 10 ML VIAL ONE (07:44)
[2021-04-15] MEDS ORDERED: PHENYLEPHRINE-0.9% NACL SYG 1,000 MCG/10 ML SYRINGE ONE (07:44)
[2021-04-15] MEDS ORDERED: PROPOFOL 10 MG/ML 20 ML VIAL IV ONE (07:44)
[2021-04-15] MEDS ORDERED: THROMBIN (BOVINE) 5,000 UNIT VIAL TOPICAL ONE (08:55)
[2021-04-15] MEDS ORDERED: BUPIVACAIN-EPI 0.25%-1:200,000 30 ML VIAL SQ ONE (08:55)
[2021-04-15] MEDS ORDERED: GELATIN SPONGE,ABSORB (LARGE) 1 EACH SPONGE TOPICAL ONE (08:55)
--- NOTE | 2021-04-15 10:55 | XR ---
EXAM TYPE: LUMBAR SPINE X RAY SERIES COMPARISON: NONE HISTORY: Postop TECHNIQUE: 4 views are submitted. FINDINGS: Postoperative change noted. IMPRESSION: 1. Postoperative change
--- NOTE | 2021-04-15 10:59 | FL ---
EXAMINATION TYPE: FL guidance operating room DATE OF EXAM: 04/15/2021 HISTORY: Fluoroscopy time 19 seconds of fluoroscopy provided. IMPRESSION: 1. Fluoroscopy time.
[2021-04-15] MEDS ORDERED: HYDROmorphone 1 MG/ML 1 ML SYRINGE IVP PRN (11:04)
[2021-04-15] MEDS ORDERED: HYDROcodone/APAP 5-325MG 1 EACH TAB PO PRN (11:04)
[2021-04-15] MEDS ORDERED: BENZOCAINE/MENTHOL LOZENG 1 EACH LOZENGE MUCOUS MEM PRN (11:04)
--- NOTE | 2021-04-15 11:04 | P.OP ---
Date of Procedure: 04/15/21 Preoperative Diagnosis: Facet cyst L4 5, severe spinal stenosis L4 5, spondylolisthesis L4 5, lower extremity radiculopathy, lower extremity weakness, low back pain Postoperative Diagnosis: Same Anesthesia: GETA Pathology: none sent Condition: stable Disposition: PACU Description of Procedure: DESCRIPTION OF PROCEDURE(S): BRIEF OPERATIVE NOTE Preoperative Diagnosis: Facet cyst L4 5, severe spinal stenosis L4 5, spondylolisthesis L4 5, lower extremity radiculopathy, lower extremity weakness, low back pain Postoperative Diagnosis: Same Procedure: Laminectomy and decompression L4 5 Excision of facet cyst L4 [address] navigation aided Minimally invasive Posterior lateral decompression and facet fusion L4 5 Minimally invasive Transforaminal lumbar interbody fusion for a 360 fusion L4 5 Discectomy for decompression L4 5 Placement of interbody graft L4 5 Use of computer navigation for fusion at L4 5 Local autogenous bone grafting Aspiration of bone marrow from the vertebral body pedicle from L4 on the right Use of bone graft extenders Surgeon: Dr. Sidhu President [employer] Consulting: Pool KAMINSKI who is present throughout the entire the case persistence during positioning, dissection, exposure, visualization, and all crucial elements of the case as well as closure. Anesthesia: General anesthesia per Estimated blood loss: Approximately 100 mL Complications: None apparent Components implanted: K2M minimally invasive [place] pedicle screw system withscrews measuring 6.5 mm in diameter to rods one appropriate lift expandable 8-13 interbody cage with 10 mL of osteo amp bio4 bone graft substitute and 30 mL of the BX bone fibers to supplement the local autogenous bone graft and bone marrow aspirate Disposition: To recovery room in good stable condition. OPERATIVE INDICATIONS The patient has had severe issues at their lower extremity in her lower back over the past several years with significant worsening over the past several months. Over the past few months the patient had pain at their back and their lower extremities. The patient had actually been scheduled to undergo surgery several months ago over he had some abnormal cardiac workup which cause postponement of the procedure. Since that time he has been having significant workup evaluation and treatment regards to any cardiac issues and he is deemed to be stable and acceptable risk for surgical intervention. The patient tessie nued to have severe pain second his back and lower extremities and was eager to proceed with surgical intervention. The patient is having severe radicular symptoms at their lower extremity with weakness. The patient is having significant pain in their back. They are unable to obtain any comfort. We did aggressive conservative treatment with medications therapy and interventional pain management however thery were not having any relief. The patient also showed evidence of a listhesis with some dynamic instability at L4 5. The patient had further imaging which showed severe stenosis L4 5 with a left facet cyst contributing to the stenosis as well. The patient has been through conservative treatment. We discussed various treatment options including surgery, and the patient wishes to proceed with surgery We discussed the risk, patient's alternatives and benefits of surgery including but not limited to, risk of bleeding risk of infection, risk of need for further surgery, risk of d ecreased, loss of motion, muscle function, malunion nonunion, hardware failure, nerve damage, paralysis, heart attack, blindness and . They understood issues with the current pandemic and the possibility of exposure. OPERATIVE SUMMARY After discussing all the risks, patient alternatives and benefits at length, the patient elected to proceed with surgical intervention, signed informed consent, and presented for their procedure. The patient was seen and examined in the preoperative holding area and the surgical site was marked. The patient was given antibiotics and brought to the operating room. The patient was sedated and intubated by anesthesia in standard fashion. The patient was positioned on to the operating room table in a prone position on the appropriate frame which was well-padded and well molded. We were careful to pad any bony prominences and pressure points. We were careful to maintain the patient's cervical spine and good neutral alignment and position throughout. The patient was prepped and draped in a normal standard fashion. An appropriate timeout and keystone protocol performed. We were able to proceed with the surgery. The local wound area was infiltrated with local anesthetic. Over the right iliac crest I was able to make small stab incisions and establish a guidepin screw fixation to the iliac crest 2. I was able place the computer referencing device over the guidepins to establish an appropriate reference point for the Ziem CT navigation. We then were able to place patient in an appropriate drape and do a navigation spin for visualization and 3-D reconstruction of the lumbar spine. I was able utilize C-arm guidance and navigation to establish appropriate position over the pedicles bilaterally at the appropriate levels at L4 5 . With the appropriate levels confirmed was able to make small incisions over the appropriate pedicle sites bilaterally. Utilizing the computer navigation device I was able to establish bony landmarks at the right iliac crest for a bony reference point for the navigation device. I was able to establish a Jamshidi needle over the lateral aspect of the pedicle and advanced the trocar into the pedicle being careful not to breech superiorly inferiorly medially or laterally using computer navigation device. Position was confirmed regularly with AP and lateral images on C-arm and with the computer navigation device at the appropriate levels bilaterally at L4 and L5. I was able to establish the trocar into the pedicle appropriately into the posterior aspect of the vertebral body bilaterally at the appropriate levels. This was done at each of the pedicle positions and each of the vertebrae. At the superior vertebrae on the right at L4 I was able to take approximately 25 mL of bone aspiration for use later in the case to supplement the allograft and autograft bone. I was able place the guidewire into the trocar and into the vertebral body appropriately under C-arm guidance. Dissection was taken down over the wire to the appropriate starting position for the screw placed. The appropriate length screw was chosen, threaded over the guidewire and screwed appropriately into the pedicle and vertebral body under C-arm guidance in excellent alignment and position with good bony purchase. This is done at each of the screw sites at the appropriate levels at L4 and L5. With the screws intact I extended the incision to connect the screw hole sites on the on the left side where the cyst appeared to originate on imaging. I dissected down to establish access over the pars and lamina to the base of the spinous process. I was able to expose the facet joint. The capsule the facet was taken down and showed some facet arthrosis at the joint. I was able to use a combination of curettes and Kerrison rongeurs and a high-speed drill to take down the facet joint and do a facetectomy. I was able get excellent foraminal decompression and central decompression with undermining across midline to perform a laminectomy centrally and contralaterally. As able get good central decompression at L4 5. The ligamentum flavum was taken down to further decompress centrally and at bilateral neural foramen. The facet cyst was quite adherent to the dura on the left and to create meticulous care to release this and expose the facet itself and a facet cyst removed from the dura. I was able to take out the cyst which provided further decompression at the area I was able to expose the disc space and visualize the traversing nerve root. Note was made of some disc protrusion and disc herniation that was abutting the traversing nerve root at the level causing further compression of the nerve root. I was able to establish a annulotomy at the appropriate level protecting soft tissue and neural structures. Note was made of some disc desiccation at the disc. I performed a complete discectomy with accommodation of curettes and rasps and scrapers. I was able get good endplate preparation at the disc space. I sized for the appropriate size interbody spacer protecting the soft tissue and neural structures. The wound was copiously irrigated and suctioned dry. There is no evidence of any dural tear or leak. I was able to pack the disc space with local autogenous bone graft as well as a small amount of bone graft which was also placed into the interbody cage itself. Protecting the soft tissue structures and neural structures I was able place the interbody cage in good alignment and good position with good fit and fill at the interbody space. Position was confirmed with C-arm guidance. Good hemostasis maintained. There is no evidence of any dural tear or leak. The wound was irrigated and suctioned dry. With the hardware intact, intraoperative C-arm imaging was again taken which showed good alignment and position of the hardware at the appropriate levels of L4 5. We were then able to measure, contour and place the rods and appropriate hardware bilaterally. I was able to place capcrews, tighten them down, and torque them with the torque screwdriver appropriately. With this intact I was able to place the local autogenous bone graft with additional bone graft enhancer as necessary into the posterior lateral gutters over the decorticated transverse processes and facet joints on the contralateral side. The remainder of the bone graft was placed over the facet joint on the contralateral side after taking down the facet joint capsule. With the bone graft intact, a stable construct, and good decompression at the appropriate levels, we were able to proceed with closure. Good hemostasis was maintained. There is no evidence of dural tear or leak. The fascia was closed for a watertight closure. he subcuticular tissue was closed with absorbable suture. The wound was cleaned and dried and dressed with the appropriate dressing. The drapes were broken down. The patient was gently rolled back onto their hospital bed being careful to maintain their cervical spine and good neutral alignment and position. They were woken up by anesthesia, extubated, and brought to the recovery room in good stable condition. The patient will be admitted to the hospital for appropriate postoperative care, medical management and monitoring. We will continue to follow them closely about the postoperative course.
[2021-04-15] MEDS ORDERED: diazePAM 5 MG TAB PO PRN (11:06)
[2021-04-15] MEDS ORDERED: traMADol 50 MG TAB PO PRN (11:06)
[2021-04-15] MEDS ORDERED: CYCLOBENZAPRINE 10 MG TAB PO PRN (11:06)
[2021-04-15 11:47] LABS: Glucose,Whole Blood 108 mg/dL (75-99)
[2021-04-15] MEDS ORDERED: SODIUM CHLORIDE 0.9% 1,000 ML IV ONE (13:35)
[2021-04-15] MEDS: SODIUM CHLORIDE 0.9% 1,000 ML IV SCH (15:00)
[2021-04-15] MEDS: LACTATED RINGERS 1,000 ML IV SCH (15:06)
[2021-04-15] MEDS: MAGNESIUM OXIDE 400 MG TAB PO SCH (15:24)
[2021-04-15] MEDS ORDERED: ATORVASTATIN 40 MG TAB PO SCH (21:00)
[2021-04-15] MEDS: TAMSULOSIN 0.4 MG CAP.ER.24H PO SCH (21:11)
[2021-04-15] MEDS: METOPROLOL TARTRATE 12.5 MG TAB PO SCH (21:11)
[2021-04-15] MEDS: valACYclovir HCL 1,000 MG TABLET PO SCH (21:11)
[2021-04-16] MEDS: SODIUM CHLORIDE 0.9% 1,000 ML IV SCH ×2 (01:41→17:28)
[2021-04-16] MEDS: LACTATED RINGERS 1,000 ML IV SCH (01:41)
[2021-04-16] MEDS ORDERED: HEPARIN SODIUM,PORCINE 2,500 UNIT in SODIUM CHLORIDE 0.9% 250 ML IRRIGATION PRN (06:00)
[2021-04-16 06:44] LABS: Basophils % (A) 0 %; Eosinophils % (A) 0 %; HCT 45.6 % (39.0-53.0); Lymphocytes # (A) 0.8 k/uL (1.0-4.8); Lymphocytes % (A) 5 %; MCH 33.3 pg (25.0-35.0); MCHC 35.1 g/dL (31.0-37.0); MCV 95.1 fL (80.0-100.0); Mean Platelet Volume 7.5; Monocytes # (A) 0.9 k/uL (0-1.0); Monocytes % (A) 6 %; Neutrophils # (A) 12.8 k/uL (1.3-7.7); Neutrophils % (A) 88 %; Platelet Count 193 k/uL (150-450); RBC 4.79 m/uL (4.30-5.90); RDW 13.2 % (11.5-15.5); WBC 14.6 k/uL (3.8-10.6)
[2021-04-16] MEDS ORDERED: HEPARIN SODIUM,PORCINE 10,000 UNIT in SODIUM CHLORIDE 0.9% 1,000 ML IRRIGATION PRN (07:00)
[2021-04-16] MEDS: ASPIRIN 81 MG PO SCH (08:22)
[2021-04-16] MEDS: amLODIPine 5 MG TAB PO SCH (08:22)
[2021-04-16] MEDS: METOPROLOL TARTRATE 12.5 MG TAB PO SCH (08:23)
[2021-04-16] MEDS: FOLIC ACID-VIT B COMPLEX-VIT C 1 CAP PO SCH (08:23)
[2021-04-16] MEDS: lisinopriL 20 MG TAB PO SCH (08:23)
[2021-04-16] MEDS: SENNOSIDES-DOCUSATE SODIUM 1 EACH TAB PO SCH (08:23)
[2021-04-16] MEDS: OXYBUTYNIN XL 5 MG TAB.ER.24 PO SCH (08:23)
[2021-04-16] MEDS: FAMOTIDINE 20 MG TAB PO PRN (08:33)
--- NOTE | 2021-04-16 08:45 | P.PN ---
Progress Note - Text Progress Note Date: 04/16/21 Orthopedic Spine History of present illness: Patient is a pleasant 70-year-old male who is seen and examined at the bedside following posterior lateral decompression and fusion performed yesterday. Patient states they are doing ok postoperatively. He does have some pain around the surgical sites. He is not currently complaining of any lower extremity weakness and radiculopathy bilaterally. He does have some heartburn this morning. He is being started on Pepcid. Denies specific chest pain or upper extremity pain. His Felder catheter was discontinued he states at 2:00 in the morning. He has been voiding since that time without difficulty. Currently does not complain of nausea, vomiting, fever, or chills. Patient states pain has been adequately controlled. Patient is eating and voiding freely without difficulty. Consultation has been placed with medicine for medical management. Patient's medical history also includes heart disease, type 2 diabetes, hypertension, and hyperlipidemia. Physical Exam Lumbar Fusion: Status post surgical day number Patient is awake, alert, and oriented 3 Vital signs stable Good chest excursion with deep inspiration and expiration Abdomen soft nontender Dorsiflexion, plantarflexion, and extensor hallucis longus positive sustained bilaterally No signs or symptoms of DVT; no calf pain; pneumatic cuffs intact bilateral lower extremities Optifoam dressings are clean, dry, and intact over the lumbar spine and right iliac crest; no erythema, purulence, or signs of infection Neurovascularly intact bilaterally lower extremities Assessment: Status post L4-5 minimally invasive posterior lateral decompression and fusion with transforaminal lumbar interbody fusion Low back pain L4-5 facet cyst L4-5 severe spinal canal stenosis L4-5 spondylolisthesis Lower extremity radiculopathy with weakness Heart disease Type 2 diabetes Hypertension Hyperlipidemia Plan: 1. Ambulate as tolerated; work with Physical Therapy to increase mobilization 2. Continue pain control with IV and oral medications; will plan to begin weaning the patient off of IV narcotic medication in anticipation for discharge home in the next 1-2 days 3. Dressings to remain intact with Optifoam; patient may shower with dressings intact 4. Medical management can continue to manage patient for patient's other medical diagnoses including heart disease, type 2 diabetes, hypertension, hyperlipidemia, and heartburn 5. We will continue to follow the patient closely; depending on the patient's progress, we may plan for discharge home as early as tomorrow, 04/17/2021 6. Patient can follow-up with Pool Nathan PA-C or Dr. Joey Sidhu at [facility] in 2-3 weeks following discharge
[2021-04-16] MEDS ORDERED: NON FORMULARY DRUG (Ubidecarenone [Co Q-10] 400 MG Capsule) PO SCH (09:00)
[2021-04-16] MEDS ORDERED: ALPHA LIPOIC ACID 600 MG PO SCH (09:00)
[2021-04-16] MEDS: ONDANSETRON 4 MG/2 ML VIAL IVP PRN (09:39)
[2021-04-16] MEDS ORDERED: PANTOPRAZOLE 40 MG/10 ML VIAL IVP SCH (10:15)
[2021-04-16] MEDS ORDERED: METOPROLOL TARTRATE 12.5 MG TAB PO STA (10:51)
[2021-04-16] MEDS ORDERED: ASPIRIN 81 MG PO STA (10:57)
[2021-04-16] MEDS: NITROGLYCERIN SL TABS 0.4 MG TAB SUBLINGUAL PRN ×2 (11:04→11:18)
[2021-04-16] MEDS: ACETAMINOPHEN TAB 325 MG TAB PO PRN (11:05)
--- NOTE | 2021-04-16 11:14 | P.CRDCN ---
History of Present Illness Consult date: 04/16/21 History of present illness: HISTORY OF PRESENT ILLNESS: This is a 70-year-old male with a past medical history significant for hypertension, hyperlipidemia, coronary artery disease with previous stent placement in 2008 at [facility], [place] ablation with pseudoaneurysm post procedure, and former nicotine dependence. Patient follows in the office with Dr. Mukherjee. We have been asked to see the patient in consultation for chest pain. Patient examined at the bedside. Patient underwent laminectomy and decompression L5-L4 yesterday with Dr. Sidhu. The patient states he began having some chest discomfort overnight but did not think much of it. However, he states the pain has continued to get worse this morning. He states "it feels like someone is putting a belt around my chest and pulling it tight". He denied radiation of the pain. Denies shortness of breath. He does report feeling diaphoretic and nauseated. He was given Pepcid without any relief this morning. He denies any palpitations. The patient is not on telemetry monitoring. H owever he is tachycardic with a heart rate around 110-120. Blood pressure elevated at 160/85. He is on room air with oxygen saturations greater than 92%. EKG reveals sinus tachycardia with deep T-wave inversions V1 through V3, new from previous EKG completed in the office Laboratory data: WBC 14.6. Hemoglobin 16.0. Platelet count 193. Sodium 141. Potassium 4.5. BUN 14. Creatinine 0.88. Current home cardiac medications include amlodipine/Benzapril 540 milligrams daily, metoprolol tartrate 12.5 mg twice a day, atorvastatin 40 mg at night, and aspirin 81 mg daily Most recent echocardiogram obtained in August 2020 revealed ejection fraction 55- 60%, mild to moderate aortic regurgitation, mild mitral regurgitation, [id number] tricuspid regurgitation Patient underwent stress test in September 2020 with a final impression revealing good exercise tolerance. No symptoms typical of angina. Dysrhythmias in the form of occasional premature ventricular contractions. Premature ventricular rare couplets. Nondiagnostic electrocardiographic stress test secondary to baseline EKG abnormalities REVIEW OF SYSTEMS: At the time of my exam: CONSTITUTIONAL: Denies fever or chills. + Diaphoresis HEENT: Denies blurred vision, vision changes, or eye pain. Denies hemoptysis CARDIOVASCULAR: + chest pain. Denies orthopnea. Denies PND. Denies palpitations RESPIRATORY: Denies shortness of breath. GASTROINTESTINAL: Denies abdominal pain. + nausea. Denies vomiting. HEMATOLOGIC: Denies bleeding disorders. GENITOURINARY: Denies any blood in urine. SKIN: Denies pruitis. Denies rash. PHYSICAL EXAM: VITAL SIGNS: Reviewed. GENERAL: Well-developed in no acute distress. HEENT: Head is normocephalic. Pupils are equal, round. Sclerae anicteric. Mucous membranes of the mouth are moist. Neck supple. No JVD or thyromegaly LUNGS: Respirations even and unlabored. Lungs essentially clear to auscultation bilaterally. HEART: Tachycardic. Regular rate and rhythm. S1 and S2 heard. ABDOMEN: Soft. Nondistended. Nontender. EXTREMITIES: Normal range of motion. No clubbing or cyanosis. Peripheral pulses intact. No lower extremity edema NEUROLOGIC: Awake and alert. Oriented x 3. ASSESSMENT: Status post laminectomy and decompression L4-L5 Chest pain with EKG abnormalities concerning for ischemia Coronary artery disease with previous PCI (2008 at [facility] per patient) History of [place] ablation, January 2021 History of pseudoaneurysm following [place] ablation requiring thrombin injection Hypertension Hyperlipidemia Diet controlled diabetes Former nicotine dependence PLAN: Repeat EKG Continue current cardiac medications including aspirin, lipitor, amlodipine, and lisinopril Increase metoprolol to 25mg BID Begin telemetry monitoring Check stat troponin and trend x 3 Begin nitro paste Obtain 2D echo to assess cardiac structure and function Dr. Diehl spoke with Dr. Sidhu who is agreeable to IV heparin if needed. Will await troponin level. Possible cardiac catheterization today pending workup Obtain records from [facility] Further recommendations pending patient course Nurse practitioner note has been reviewed by physician. Signing provider agrees with the documented findings, assessment, and plan of care. Past Medical History Past Medical History: Coronary Artery Disease (CAD), Cancer, Diabetes Mellitus, GERD/Reflux, Hyperlipidemia, Hypertension, Prostate Disorder Additional Past Medical History / Comment(s): Diet control type 2 diabetes,. Spinal stenosis. Hx skin cancer, varicose veins, cardiac arrythmia History of Any Multi-Drug Resistant Organisms: None Reported Past Surgical History: Cardiac Ablation, Heart Catheterization With Stent, Orthopedic Surgery Additional Past Surgical History / Comment(s): 11/14/20 WAS SCHEDULED FOR LUMBAR DECOMPRESION AND FUSION - HOWEVER, IT WAS CANCELLED DUE TO CARDIAC ARRYTHMIA. rt knee surgery for torn cartilage, left hand surgery(not sure what), left forearm surgery after accident to "clean it out", Past Anesthesia/Blood Transfusion Reactions: Previous Problems w/ Anesthesia Additional Past Anesthesia/Blood Transfusion Reaction / Comment(s): heart rate went down to 30 and had an arrythmia in operating room October 2020 -back surgery canceled Date of Last Stent Placement:: 2008 Smoking Status: Former smoker - Past Family History Mother Family Medical History: No Reported History Medications and Allergies Home Medications Medication Instructions Recorded Confirmed Type Alfuzosin HCl [Uroxatral] 10 mg PO HS 03/29/14 04/10/21 History Atorvastatin [Lipitor] 40 mg PO HS 03/29/14 04/10/21 History valACYclovir HCL [Valacyclovir] 1,000 mg PO HS 03/29/14 04/10/21 History Alpha Lipoic Acid. 600 mg PO DAILY 02/02/19 04/10/21 History Cinnamon Bark [Cinnamon] 2,000 mg PO DAILY 02/02/19 04/10/21 History Ergocalciferol [Vitamin D2 50,000 units PO SUWE 02/02/19 04/10/21 History (DRISDOL)] Metoprolol Tartrate [Lopressor] 12.5 mg PO BID 02/02/19 04/10/21 History Tolterodine [Detrol] 2 mg PO QAM 02/02/19 04/10/21 History Ubidecarenone [Co Q-10] 400 mg PO DAILY 02/02/19 04/10/21 History Vitamin B Complex 1 each PO DAILY 02/02/19 04/10/21 History amLODIPine BESYLATE/BENAZEPRIL 1 cap PO QAM 10/25/20 04/10/21 History [Lotrel 5-40 MG] Aspirin [Adult Low Dose Aspirin EC] 81 mg PO DAILY 01/28/21 04/10/21 History Magnesium Oxide 400 mg PO 1500 01/28/21 04/10/21 History Allergies Allergy/AdvReac Type Severity Reaction Status Date / Time metformin AdvReac INCREASED Verified 04/10/21 09:54 CREATININE sitagliptin [From [facility]] AdvReac INCREASED Verified 04/10/21 09:54 CREATININE Physical Exam Vitals: Vital Signs Temp Pulse Pulse Resp BP Pulse Ox 04/16/21 08:21 114 H 168/85 04/16/21 05:06 99.1 F 111 H 18 156/81 93 L 04/15/21 19:46 98.6 F 108 H 18 144/74 92 L 04/15/21 17:06 97.5 F L 77 16 146/77 96 04/15/21 15:22 92 16 155/90 96 04/15/21 14:45 91 16 166/97 95 04/15/21 14:30 81 16 154/87 95 04/15/21 14:15 69 16 157/94 95 04/15/21 14:00 97.3 F L 83 16 166/92 97 04/15/21 13:30 88 16 163/81 95 04/15/21 13:15 95 14 170/86 95 04/15/21 13:00 81 14 151/77 97 04/15/21 12:30 86 16 157/87 96 04/15/21 12:00 81 18 157/83 95 04/15/21 11:45 82 16 149/78 100 04/15/21 11:30 76 16 140/69 100 04/15/21 11:16 97.8 F 61 16 141/67 99 Intake and Output 04/15/21 04/16/21 04/16/21 22:59 06:59 14:59 Intake Total 1460 Output Total 450 1600 Balance 1010 -1600 Intake: Intake, IV Titration 300 Amount Sodium Chloride 0.9% 1, 250 000 ml @ 75 mls/hr IV . [id number] [facility] Rx#:[id number] ceFAZolin 2 gm In Sodium 50 Chloride 0.9% 50 ml @ 100 mls/hr IVPB ONCE PRN Rx# :[id number] Oral 1160 Output: Urine 450 1600 Uretheral (Felder) 1600 Other: Voiding Method Indwelling Catheter # Voids 1 Results 04/16/21 05:50 04/04/21 08:42 CBC 04/16/21 Range/Units 05:50 WBC 14.6 H (3.8-10.6) k/uL RBC 4.79 (4.30-5.90) m/uL Hgb 16.0 (13.0-17.5) gm/dL Hct 45.6 (39.0-53.0) % Plt Count 193 (150-450) k/uL Current Medications Generic Name Dose Route Start Last Admin Trade Name Freq PRN Reason Stop Dose Admin Acetaminophen 650 mg 04/15/21 11:06 Acetaminophen Tab 325 Mg Tab PO 05/15/21 12:01 Q6HR PRN Pain Hydrocodone Bitart/Acetaminophen 1 each 04/15/21 11:04 04/15/21 21:11 Hydrocodone/Apap 5-325mg 1 Each Tab PO 05/15/21 11:05 1 each Q4HR PRN Administration Pain Amlodipine Besylate 5 mg 04/16/21 09:00 04/16/21 08:22 Amlodipine 5 Mg Tab PO 05/16/21 09:01 5 mg QAM BABAR Administration Aspirin 81 mg 04/16/21 09:00 04/16/21 08:22 Aspirin 81 Mg PO 05/16/21 09:01 81 mg DAILY BABAR Administration Atorvastatin Calcium 40 mg 04/15/21 21:00 04/15/21 21:11 Atorvastatin 40 Mg Tab PO 05/15/21 21:01 40 mg HS BABAR Administration Benzocaine/Menthol 1 each 04/15/21 11:04 Benzocaine/Menthol Lozeng 1 Each Lozenge MUCOUS MEM 05/15/21 11:05 Q4HR PRN Sore Throat Cyclobenzaprine HCl 10 mg 04/15/21 11:06 04/15/21 23:10 Cyclobenzaprine 10 Mg Tab PO 05/15/21 11:07 10 mg TID PRN Administration Muscle Spasm Diazepam 5 mg 04/15/21 11:06 Diazepam 5 Mg Tab PO 05/15/21 11:07 Q6HR PRN Mild Anxiety Ergocalciferol 1,250 mcg 04/17/21 09:00 Ergocalciferol 1,250 Mcg (50,000 Iu) Capsule PO 05/17/21 09:01 SUWE BABAR Famotidine 20 mg 04/16/21 08:26 04/16/21 08:33 Famotidine 20 Mg Tab PO 20 mg BID PRN Administration Heartburn Hydromorphone HCl 0.5 mg 04/15/21 11:04 Hydromorphone 0.5 Mg/0.5 Ml Syringe IVP 05/15/21 11:05 Q4HR PRN Pain Hydromorphone HCl 1 mg 04/15/21 11:04 04/15/21 16:31 Hydromorphone 1 Mg/Ml 1 Ml Syringe IVP 05/15/21 11:05 1 mg Q4HR PRN Administration Pain Lactated Ringer's 1,000 mls @ 20 mls/hr 04/15/21 06:30 04/16/21 01:41 Lactated Ringers IV 05/15/21 06:31 Not Given .Q24H BABAR Sodium Chloride 1,000 mls @ 75 mls/hr 04/15/21 11:15 04/16/21 01:41 Saline 0.9% IV 05/15/21 11:16 75 mls/hr .[id number] BABAR Administration Lisinopril 40 mg 04/16/21 09:00 04/16/21 08:23 Lisinopril 20 Mg Tab PO 40 mg QAM BABAR Administration Magnesium Oxide 400 mg 04/15/21 15:00 04/15/21 15:24 Magnesium Oxide 400 Mg Tab PO 05/15/21 15:01 400 mg 1500 BABAR Administration Metoprolol Tartrate 25 mg 04/16/21 21:00 Metoprolol Tartrate 25 Mg Tab PO 05/15/21 21:01 BID BABAR Multivit/Ca Carb/B Cmplx/FA/Prenat 1 each 04/16/21 09:00 04/16/21 08:23 Folic Acid-Vit B Complex-Vit C 1 Cap PO 05/16/21 09:01 1 each DAILY BABAR Administration Nitroglycerin 1 inch 04/16/21 11:00 Nitroglycerin Oint 1 Inch/Gm Packet TOPICAL Q8HR BABAR Ondansetron HCl 4 mg 04/15/21 11:06 04/16/21 09:39 Ondansetron 4 Mg/2 Ml Vial IVP 05/15/21 11:07 4 mg Q8HR PRN Administration Nausea And Vomiting Oxybutynin Chloride 5 mg 04/16/21 09:00 04/16/21 08:23 Oxybutynin Xl 5 Mg Tab.Er.24 PO 05/16/21 09:01 5 mg QAM BABAR Administration Pantoprazole Sodium 40 mg 04/16/21 10:15 04/16/21 10:31 Pantoprazole 40 Mg/10 Ml Vial IVP 40 mg DAILY BABAR Administration Senna/Docusate Sodium 1 each 04/16/21 09:00 04/16/21 08:23 Sennosides-Docusate Sodium 1 Each Tab PO 05/16/21 09:01 1 each DAILY BABAR Administration Tamsulosin HCl 0.4 mg 04/15/21 21:00 04/15/21 21:11 Tamsulosin 0.4 Mg Cap.Er.24h PO 05/15/21 21:01 0.4 mg HS BABAR Administration Tramadol HCl 50 mg 04/15/21 11:06 Tramadol 50 Mg Tab PO 05/15/21 11:07 Q6HR PRN Pain Scale 4 - 6 Valacyclovir HCl 1,000 mg 04/15/21 21:00 04/15/21 21:11 Valacyclovir Hcl 1,000 Mg Tablet PO 05/15/21 21:01 1,000 mg HS BABAR Administration Intake and Output 04/15/21 04/16/21 04/16/21 22:59 06:59 14:59 Intake Total 1460 Output Total 450 1600 Balance 1010 -1600 Intake: Intake, IV Titration 300 Amount Sodium Chloride 0.9% 1, 250 000 ml @ 75 mls/hr IV . [id number] [facility] Rx#:[id number] ceFAZolin 2 gm In Sodium 50 Chloride 0.9% 50 ml @ 100 mls/hr IVPB ONCE PRN Rx# :[id number] Oral 1160 Output: Urine 450 1600 Uretheral (Felder) 1600 Other: Voiding Method Indwelling Catheter # Voids 1 04/16/21 05:50 04/04/21 08:42
[2021-04-16] MEDS ORDERED: ATORVASTATIN 80 MG TAB PO STA (11:22)
[2021-04-16] MEDS ORDERED: ASPIRIN 325 MG TAB PO STA (11:22)
[2021-04-16] MEDS ORDERED: ALPRAZolam 0.25 MG TAB PO PRN (11:22)
[2021-04-16] MEDS ORDERED: ALPRAZolam 0.5 MG TAB PO PRN (11:22)
[2021-04-16] MEDS ORDERED: NITROGLYCERIN SL TABS 0.4 MG TAB SUBLINGUAL PRN (11:22)
[2021-04-16] MEDS ORDERED: fentaNYL (PF) 50 MCG/ML 2 ML AMP ONE (11:45)
[2021-04-16] MEDS ORDERED: VERAPAMIL 2.5 MG/ML 2 ML AMP ONE (11:45)
[2021-04-16] MEDS ORDERED: LIDOCAINE 1% INJ 10MG/ML (20 ML MDV) ONE (11:45)
[2021-04-16] MEDS ORDERED: LIDOCAINE 1% INJ 10MG/ML (20 ML MDV) SQ ONE (11:59)
[2021-04-16] MEDS ORDERED: fentaNYL (PF) 50 MCG/ML 2 ML AMP IV ONE (12:00)
[2021-04-16] MEDS ORDERED: SODIUM CHLORIDE 0.9% 1,000 ML IV ONE (12:00)
[2021-04-16] MEDS ORDERED: MIDAZOLAM 2 MG/2 ML VIAL IV ONE (12:00)
[2021-04-16] MEDS ORDERED: IOPAMIDOL-370 125ML BTL INJ ONE (12:09)
[2021-04-16] MEDS ORDERED: RX INFO: IV CONTRAST WAS GIVEN 1 EACH MISC MISCELLANE PRN (12:10)
--- NOTE | 2021-04-16 12:24 | P.CARDCATH ---
Description of Procedure: PROCEDURES PERFORMED: Left heart catheterization, bilateral coronary angiography, Angio-Seal INDICATION: Chest pain concerning for unstable angina HISTORY: Patient is a pleasant 70-year-old male with history of hypertension, hyperlipidemia, coronary artery disease status post prior PCI of the LAD who presented for elective laminectomy. Patient underwent successful laminectomy however postop day 1 and started having chest pain throughout the night. Chest pain felt similar to his prior angina with associated shortness breath and nausea. He therefore had EKG performed which showed new T-wave inversions and given ongoing chest pain recommendation was for heart catheterization. CONSENT:I have discussed the risks, benefits and alternative therapies for the above-mentioned procedure and for both sedation/analgesia as well as necessary blood product administration, if indicated, as they pertain to this patient. The patient has indicated understanding and acceptance of the risks and procedures discussed. PROCEDURE: After the risks, benefits and alternatives of the above mentioned procedure explained in detail with the patient, informed consent was obtained. Patient was taken to the catheterization lab and prepped and draped in usual fashion. 1% lidocaine was used to anesthetize the right radial artery. A 6-Emirati sheath was placed in the left femoral artery using modified Seldinger technique. Left coronary angiography was performed with a 6-Emirati JL 4.0 catheter and right coronary angiography was performed with a 6-Emirati FR4 catheter in various views. A 6-Emirati FR4 catheter was inserted into the left ventricle and pressure measurements were obtained. A left femoral angiogram showed adequate anatomy for closure and a 6-Emirati Angioseal was placed with hemostasis achieved. The patient tolerated the procedure well. Patient was transported back to the post catheterization holding area in stable condition. Conscious Sedation: Patient was monitored under the direct supervision of vision of myself for conscious sedation using Versed and fentanyl for a total duration of 13 minutes HEMODYNAMICS: Aorta: 150s/78 LV: 147/1, LVEDP 6 SELECTIVE CORONARY ARTERIOGRAPHY: LEFT MAIN: The left main is a large caliber vessel which bifurcates into the LAD and circumflex. There is no significant stenosis. LEFT ANTERIOR DESCENDING CORONARY ARTERY: LAD is a large caliber vessel which wraps around to the apex. There is a patent proximal to mid LAD stent. There is mild 10- 20% proximal LAD stenosis and a mid LAD 30-40% stenosis. LEFT CIRCUMFLEX CORONARY ARTERY: Left circumflex is a large caliber vessel with mild 10-20% stenosis. OM1 has a proximal 50% stenosis. The circumflex gives off the PDA and is the dominant vessel. RIGHT CORONARY ARTERY: The right coronary artery is a small to moderate caliber vessel which gives off an RV branch and is non dominant vessel. There is no significant stenosis. FINAL IMPRESSION: 1. Mild to moderate CAD as described above including patent proximal LAD stent, mid LAD 30-40% stenosis and OM1 50% stenosis. 2. Low normal left sided filling pressures PLAN: 1. Aggressive risk factor modification per most recent ACC/AHA guidelines.
--- NOTE | 2021-04-16 13:57 | CT ---
EXAMINATION TYPE: CT chest angio for PE DATE OF EXAM: 04/16/2021 COMPARISON: None HISTORY: Chest pain. Post Op Lumbar fusion [address] DLP: 530.4 mGycm Automated exposure control for dose reduction was used. CONTRAST: CT Chest for pulmonary embolism performed with with IV Contrast, patient injected with 60 mL of Isovu e 370. FINDINGS: LUNGS: Biapical pleural thickening with posterior areas of subsegmental consolidation involving both lungs. No pleural effusion. Basilar bronchiectasis noted. MEDIASTINUM: There is suboptimal enhancement of the pulmonary artery and its branches, there is no CT evidence for central pulmonary embolism. Distal branches and limited due to suboptimal opacificatio n. There are no greater than 1 cm hilar or mediastinal lymph nodes. Small pericardial effusion and the heart is mildly enlarged. Coronary artery calcification noted. Esophagus is distended and contains fl uid likely secondary to the massively distended stomach. Patient at risk for aspiration. Aorta of nor mal caliber. OTHER: Stomach is markedly distended correlate clinically for gastroparesis or gastric outlet obstru ction. There appears to be evidence of right-sided hydronephrosis or parapelvic cyst. Suspect residua l contrast within the right renal collecting system. IMPRESSION: 1. Limited exam demonstrates no diagnostic evidence of central pulmonary embolism. 2. Bilateral lower lobe infiltrate correlate clinically. 3. Cardiomegaly with coronary artery calcification and pericardial small effusion. 4. Massively distended stomach and esophagus with fluid extending into the esophagus. Correlate for g astroparesis or gastric outlet obstruction. Patient would be at risk for aspiration with the amount o f fluid extending into the mid to upper esophagus.
[2021-04-16 16:11] LABS: African American GFR (CKD) 89.2 (60.0-200.0); Anion Gap 15.4 mmol/L (4.00-12.00); BUN/Creat Ratio 12.6 Ratio (12.00-20.00); Blood Urea Nitrogen 12.6 mg/dL (9.0-27.0); Calcium 8.8 mg/dL (8.7-10.3); Carbon Dioxide 21.6 mmol/L (21.6-31.8); Potassium 4.1 mmol/L (3.5-5.5)
[2021-04-16] MEDS: SODIUM CHLORIDE 0.9% 1,000 ML in EMPTY BAG 1 BAG IV SCH ×2 (17:27→22:30)
[2021-04-16] MEDS: NITROGLYCERIN OINT 1 INCH/GM PACKET TOPICAL SCH ×2 (17:27→17:28)
[2021-04-16] MEDS: MAGNESIUM OXIDE 400 MG TAB PO SCH (17:28)
[2021-04-16] MEDS: PANTOPRAZOLE 40 MG/10 ML VIAL IVP SCH (17:28)
[2021-04-16 19:50] LABS: Glucose,Whole Blood 225 mg/dL (75-99)
[2021-04-16] MEDS: METOPROLOL TARTRATE 25 MG TAB PO SCH (20:49)
[2021-04-16] MEDS: valACYclovir HCL 1,000 MG TABLET PO SCH (20:50)
[2021-04-16] MEDS: TAMSULOSIN 0.4 MG CAP.ER.24H PO SCH (20:50)
--- NOTE | 2021-04-16 22:36 | P.CONS ---
History of Present Illness - Reason for Consult Consult date: 04/16/21 medical eval - History of Present Illness French Boudreaux is a 70 yo M with PMH of spinal stenosis, CAD, HTN, HLD who is admitted for lumbar decompression and laminectomy. He underwent this procedure yesterday with Dr. Sidhu and tolerated well. He does have some back pain today but denies leg pain or numbness. He complains of chest pain that feels like a band since last night. He denies shortness of breath, diaphoresis, chills. Review of Systems All systems: negative Constitutional: Denies chills, Denies fever Eyes: denies blurred vision, denies pain Ears, nose, mouth and throat: Denies headache, Denies sore throat Cardiovascular: Denies chest pain, Denies shortness of breath Respiratory: Denies cough Gastrointestinal: Denies abdominal pain, Denies diarrhea, Denies nausea, Denies vomiting Musculoskeletal: Reports low back pain, Denies myalgias Integumentary: Denies pruritus, Denies rash Neurological: Denies numbness, Denies weakness Psychiatric: Denies anxiety, Denies depression Endocrine: Denies fatigue, Denies weight change Past Medical History Past Medical History: Coronary Artery Disease (CAD), Cancer, Diabetes Mellitus, GERD/Reflux, Hyperlipidemia, Hypertension, Prostate Disorder Additional Past Medical History / Comment(s): Diet control type 2 diabetes,. Spinal stenosis. Hx skin cancer, varicose veins, cardiac arrythmia History of Any Multi-Drug Resistant Organisms: None Reported Past Surgical History: Cardiac Ablation, Heart Catheterization With Stent, Orthopedic Surgery Additional Past Surgical History / Comment(s): 11/14/20 WAS SCHEDULED FOR LUMBAR DECOMPRESION AND FUSION - HOWEVER, IT WAS CANCELLED DUE TO CARDIAC ARRYTHMIA. rt knee surgery for torn cartilage, left hand surgery(not sure what), left forearm surgery after accident to "clean it out", Past Anesthesia/Blood Transfusion Reactions: Previous Problems w/ Anesthesia Additional Past Anesthesia/Blood Transfusion Reaction / Comm: heart rate went down to 30 and had an arrythmia in operating room October 2020 -back surgery cance led Date of Last Stent Placement:: 2008 Smoking Status: Former smoker - Past Family History Mother Family Medical History: No Reported History Medications and Allergies Home Medications Medication Instructions Recorded Confirmed Type Alfuzosin HCl [Uroxatral] 10 mg PO HS 03/29/14 04/10/21 History Atorvastatin [Lipitor] 40 mg PO HS 03/29/14 04/10/21 History valACYclovir HCL [Valacyclovir] 1,000 mg PO HS 03/29/14 04/10/21 History Alpha Lipoic Acid. 600 mg PO DAILY 02/02/19 04/10/21 History Cinnamon Bark [Cinnamon] 2,000 mg PO DAILY 02/02/19 04/10/21 History Ergocalciferol [Vitamin D2 50,000 units PO SUWE 02/02/19 04/10/21 History (DRISDOL)] Metoprolol Tartrate [Lopressor] 12.5 mg PO BID 02/02/19 04/10/21 History Tolterodine [Detrol] 2 mg PO QAM 02/02/19 04/10/21 History Ubidecarenone [Co Q-10] 400 mg PO DAILY 02/02/19 04/10/21 History Vitamin B Complex 1 each PO DAILY 02/02/19 04/10/21 History amLODIPine BESYLATE/BENAZEPRIL 1 cap PO QAM 10/25/20 04/10/21 History [Lotrel 5-40 MG] Aspirin [Adult Low Dose Aspirin EC] 81 mg PO DAILY 01/28/21 04/10/21 History Magnesium Oxide 400 mg PO 1500 01/28/21 04/10/21 History Allergies Allergy/AdvReac Type Severity Reaction Status Date / Time metformin AdvReac INCREASED Verified 04/10/21 09:54 [facility]ATININE [facility] AdvReac INCREASED Verified 04/10/21 09:54 CREATININE Physical Exam Vitals: Vital Signs Temp Pulse Pulse Resp BP Pulse Ox 04/16/21 20:00 98.3 F 89 18 172/82 95 04/16/21 17:45 108 H 16 168/86 97 04/16/21 16:20 100 16 96 04/16/21 15:50 116 H 16 04/16/21 14:12 110 H 16 162/86 96 04/16/21 13:42 103 H 16 163/86 95 04/16/21 12:45 102 H 16 161/81 96 04/16/21 12:30 95 16 162/85 96 04/16/21 11:30 118 H 161/81 92 L 04/16/21 08:21 114 H 168/85 04/16/21 05:06 99.1 F 111 H 18 156/81 93 L Intake and Output 04/16/21 04/16/21 04/16/21 06:59 14:59 22:59 Intake Total 200 518 Output Total 1600 520 Balance -1600 -320 518 Intake: IV 200 Intake, IV Titration 400 Amount Sodium Chloride 0.9% 1, 400 000 ml In Empty Bag 1 bag @ 1 ML/KG/HR 98.8 mls/hr IV .Q10H8M [facility] Rx#: [id number] Oral 118 Output: Urine 1600 520 Uretheral (Felder) 1600 Other: Voiding Method Urinal Urinal # Voids 1 General: well nourished, well developed, NAD. Vitals reviewed Eyes: PERRL, EOMI, conjunctiva normal HENT: normocephalic, mucus membranes moist Neck: supple, no JVD Lungs: normal respiratory effort, no wheezes or rales CV: Regular rate and rhythm, no murmur. Peripheral pulses 2+ Abdomen: soft, nondistended, no organomegaly Lymph: no cervical or axillary LAD Skin: warm and dry. Neuro: A&Ox3, normal mood and affect Results CBC & Chem 7: 04/16/21 05:50 04/16/21 05:50 Labs: Abnormal Lab Results - Last 24 Hours (Table) 04/16/21 04/16/21 04/16/21 Range/Units 05:50 05:50 10:42 WBC 14.6 H (3.8-10.6) k/uL Neutrophils # 12.8 H (1.3-7.7) k/uL Lymphocytes # 0.8 L (1.0-4.8) k/uL D-Dimer 3.71 H (<0.60) mg/L FEU Anion Gap 15.40 H (4.00-12.00) mmol/L Glucose 141 H (70-110) mg/dL POC Glucose (mg/dL) (75-99) mg/dL 04/16/21 Range/Units 19:48 WBC (3.8-10.6) k/uL Neutrophils # (1.3-7.7) k/uL Lymphocytes # (1.0-4.8) k/uL D-Dimer (<0.60) mg/L FEU Anion Gap (4.00-12.00) mmol/L Glucose (70-110) mg/dL POC Glucose (mg/dL) 225 H (75-99) mg/dL Assessment and Plan Plan: 1. Spinal stenosis s/p laminectomy and decompression. Doing well, management per primary 2. Chest pain. Cardiology consulted and pt for catheterization. Maximize medical therapy. Continue with statin, ASA 3. HTN. Continue amlodipine 4. Elevated d-dimer. CTA negative for PE
[2021-04-17] MEDS: NITROGLYCERIN OINT 1 INCH/GM PACKET TOPICAL SCH ×2 (01:03→08:11)
[2021-04-17 01:56] LABS: Chol/HDL Ratio 3.08 Ratio; LDL Cholesterol,Calculated 58.3 mg/dL (0.0-131.0)
[2021-04-17] MEDS: LACTATED RINGERS 1,000 ML IV SCH (04:57)
[2021-04-17] MEDS: SODIUM CHLORIDE 0.9% 1,000 ML IV SCH ×2 (05:15→20:02)
[2021-04-17 05:55] LABS: Glucose,Whole Blood 142 mg/dL (75-99)
--- NOTE | 2021-04-17 07:20 | ECHOF ---
Referral Reason:Chest pain MEASUREMENTS -------- HEIGHT: 182.9 cm WEIGHT: 98.4 kg BP: RVIDd: 2.6 cm (< 3.3) IVSd: 0.7 cm (0.6 - 1.1) LVIDd: 4.6 cm (3.9 - 5.3) LVPWd: 1.0 cm (0.6 - 1.1) IVSs: 2.1 cm LVIDs: 2.7 cm LVPWs: 1.6 cm LAESV Index (A-L): 19.56 ml/m Ao Diam: 3.1 cm (2.0 - 3.7) AV Cusp: 1.7 cm (1.5 - 2.6) LA Diam: 3.3 cm (2.7 - 3.8) MV EXCURSION: 21.866 mm (> 18.000) MV EF SLOPE: 80 mm/s (70 - 150) EPSS: 0.7 cm MV E Ez: 1.27 m/s MV DecT: 60 ms MV A Ez: 0.77 m/s MV E/A Ratio: 1.66 AR PHT: 535 ms RAP: 5.00 mmHg RVSP: 34.47 mmHg FINDINGS -------- This was a technically good study. The left ventricular size is normal. Left ventricular wall thickness is normal. Overall left vent ricular systolic function is normal with, an EF between 55 - 60 %. Normal LAP. Grade 1 Diastolic Dy sfunction. The right ventricle is normal in size. The left atrial size is normal. Normal LA size by volume 22+/-6 ml/m2. The right atrial size is normal. Aortic valve is trileaflet and is mildly thickened. Trace amount of aortic regurgitation. The mitral valve is normal. There is trace mitral regurgitation. The tricuspid valve appears structurally normal. Trace tricuspid regurgitation present. Right leonel tricular systolic pressure is normal at < 35 mmHg. There is no pulmonic regurgitation present. The aortic root size is normal. IVC Not well visulized. There is no pericardial effusion. CONCLUSIONS -------- 1. The left ventricular size is normal. 2. Left ventricular wall thickness is normal. 3. Overall left ventricular systolic function is normal with, an EF between 55 - 60 %. 4. Normal LAP. Grade 1 Diastolic Dysfunction. 5. Aortic valve is trileaflet and is mildly thickened. 6. Trace amount of aortic regurgitation. 7. There is trace mitral regurgitation. 8. Trace tricuspid regurgitation present. 9. There is no pericardial effusion. COOLER CONVEYOR LOADER: Christine Loyd RDCS
[2021-04-17] MEDS ORDERED: PANTOPRAZOLE 40 MG TABLET PO SCH (07:30)
--- NOTE | 2021-04-17 09:13 | P.PN ---
Subjective This is a pleasant 70-year-old male past medical history significant for hypertension, dyslipidemia, coronary artery disease status post PCI to the LAD, VT ablation and former nicotine dependence. He follows the office with Dr. Mukherjee. He underwent cardiac catheterization yesterday with Dr. Diehl revealing patent stent of the LAD with 30-40% disease in the midportion and 50% stenosis of the first OM branch. He is seen and examined up ambulating in the room. He is complaining of nausea. He has no chest pain or shortness of letty ath. He did have an episode of nausea vomiting this morning. Blood pressure 142/83 heart rate 100 afebrile maintaining oxygen saturation on room air. Currently maintained on amlodipine 5 mg daily, aspirin 81 mg daily, atorvastatin 40 mg daily, lisinopril 40 mg daily, metoprolol 25 mg twice a day and nitro paste. Echocardiogram obtained reveals preserved LV systolic function with ejection fraction 55-60% with grade 1 diastolic dysfunction. CTA of the chest reveals bilateral lower lobe infiltrate biapical pleural thickening, massively distended stomach and esophagus with fluid extending into the esophagus and no PE. General surgery is following and plans for gastric emptying study. GENERAL: Well-appearing, well-nourished and in no acute distress. NECK: Supple without JVD or thyromegaly. LUNGS: Breath sounds clear to auscultation bilaterally. Respiration equal and unlabored. No wheezes, rales or rhonchi. HEART: Regular rate and rhythm without murmurs, rubs or gallops. S1 and S2 hear d. EXTREMITIES: Normal range of motion, no edema. No clubbing or cyanosis. Peripheral pulses intact. Left femoral access site soft, nontender with no evidence of ecchymosis or hematoma and strong distal pulses. ASSESSMENT Chest pain with abnormal EKG concerning for ischemia s/p laminectomy and decompression L4-L5 Coronary artery disease s/p PCI LAD 2008 History of VT ablation 10/19 Hypertension Dyslipidemia PLAN Continue risk factor modifications. Increase activity as tolerated. No significant progression of CAD, pain like due to abdominal distention due to air inflation from surgery. Follow up with Dr. Mukherjee in 1 week, we will follow along as needed. Nurse Practitioner note has been reviewed, I agree with a documented findings and plan of care. Patient was seen and examined. Objective - Vital Signs Vital signs: Vital Signs Temp 98.3 F 04/16/21 20:00 Pulse 100 04/17/21 04:00 Resp 18 04/17/21 04:00 BP 142/83 04/17/21 04:00 Pulse Ox 92 L 04/17/21 04:00 Intake & Output 04/16/21 04/17/21 04/17/21 18:59 06:59 18:59 Intake Total 718 Output Total 520 Balance 198 Intake: IV 200 Intake, IV Titration 400 Amount Sodium Chloride 0.9% 1, 400 000 ml In Empty Bag 1 bag @ 1 ML/KG/HR 98.8 mls/hr IV .Q10H8M [facility] Rx#: [id number] Oral 118 Output: Urine 520 Other: Voiding Method Urinal # Voids 1 2 - Labs CBC & Chem 7: 04/16/21 05:50 04/16/21 05:50 Labs: Abnormal Lab Results - Last 24 Hours (Table) 04/16/21 04/16/21 04/16/21 Range/Units 05:50 05:50 10:42 D-Dimer 3.71 H (<0.60) mg/L FEU Anion Gap 15.40 H (4.00-12.00) mmol/L Glucose 141 H (70-110) mg/dL POC Glucose (mg/dL) (75-99) mg/dL HDL Cholesterol 38.90 L (40.00-60.00) mg/dL 04/16/21 04/17/21 Range/Units 19:48 05:54 D-Dimer (<0.60) mg/L FEU Anion Gap (4.00-12.00) mmol/L Glucose (70-110) mg/dL POC Glucose (mg/dL) 225 H 142 H (75-99) mg/dL HDL Cholesterol (40.00-60.00) mg/dL
[2021-04-17] MEDS: lisinopriL 20 MG TAB PO SCH (09:25)
[2021-04-17] MEDS: OXYBUTYNIN XL 5 MG TAB.ER.24 PO SCH (09:25)
[2021-04-17] MEDS: amLODIPine 5 MG TAB PO SCH (09:25)
[2021-04-17] MEDS: FOLIC ACID-VIT B COMPLEX-VIT C 1 CAP PO SCH (09:25)
[2021-04-17] MEDS: ACETAMINOPHEN TAB 325 MG TAB PO PRN (09:25)
[2021-04-17] MEDS: ASPIRIN 81 MG PO SCH (09:25)
[2021-04-17] MEDS: ERGOCALCIFEROL 1,250 MCG (50,000 IU) CAPSULE PO SCH (09:25)
[2021-04-17] MEDS: METOPROLOL TARTRATE 25 MG TAB PO SCH (09:26)
[2021-04-17] MEDS: PANTOPRAZOLE 40 MG/10 ML VIAL IVP SCH (09:26)
[2021-04-17] MEDS: SENNOSIDES-DOCUSATE SODIUM 1 EACH TAB PO SCH (09:26)
--- NOTE | 2021-04-17 10:12 | P.PN ---
<Pool Nathan - Last Filed: 04/17/21 10:11> Progress Note - Text Progress Note Date: 04/17/21 Orthopedic Spine History of present illness: Patient is a pleasant 70-year-old male who is seen and examined at the bedside following posterior lateral decompression and fusion performed Thursday. Since being seen and examined yesterday, patient had increased chest pain throughout the day. He was seen by cardiology. EKG testing, echocardiogram testing, and heart catheterization yesterday. Patient is known have coronary artery disease. After further testing he had no significant progression. Cardiology is not currently planning for acute intervention. He'll plan to follow with cardiology in the outpatient setting approximately one week. He also underwent CT imaging which was negative for pulmonary embolism. He was found to have a massively distended stomach and esophagus was fluid extending into the esophagus. Patient has been seen this morning by Dr. Osborne. Patient states he is planned for further testing if there are no significant findings he may plan for a scope. Patient continues to have a distended abdomen and some abdominal discomfort. He is burping significantly but is not passing gas. He did vomit this morning. In regards to his lumbar spine, he feels his symptoms have improved as compared to yesterday. He does have some pain around the surgical sites. He is not currently complaining of any lower extremity weakness and radiculopathy bilaterally. He is voiding without difficulty. Currently does not complain of nausea, vomiting, fever, or chills. Patient states pain has been adequately controlled. Patient is voiding freely without difficulty. Patient continues to be seen and examined by multiple other medical providers including medicine as well. Patient's medical history also includes heart disease, type 2 diabetes, hypertension, and hyperlipidemia. Physical Exam Lumbar Fusion: Status post surgical day number 2 Patient is awake, alert, and oriented 3 Vital signs stable Good chest excursion with deep inspiration and expiration Abdomen is firm and distended Dorsiflexion, plantarflexion, and extensor hallucis longus positive sustained bilaterally No signs or symptoms of DVT; no calf pain; pneumatic cuffs not currently intact bilateral lower extremities Optifoam dressings are clean, dry, and intact over the lumbar spine and right iliac crest; no erythema, purulence, or signs of infection Neurovascularly intact bilaterally lower extremities Assessment: Status post L4-5 minimally invasive posterior lateral decompression and fusion with transforaminal lumbar interbody fusion Low back pain L4-5 facet cyst L4-5 severe spinal canal stenosis L4-5 spondylolisthesis Lower extremity radiculopathy with weakness Abdominal distention Massively distended stomach and esophagus Recent episode of vomiting Heart disease Type 2 diabetes Hypertension Hyperlipidemia Plan: 1. Ambulate as tolerated; work with Physical Therapy to increase mobilization 2. Continue pain control with IV and oral medications; will plan to begin weaning the patient off of IV narcotic medication in anticipation for discharge home in the next 1-2 days 3. Dressings to remain intact with Optifoam; patient may shower with dressings intact 4. Medical management can continue to manage patient for patient's other medical diagnoses including heart disease, type 2 diabetes, hypertension, hyperlipidemia, and heartburn 5. Patient will continue be seen and examined by Dr. Osborne in general surgery for further treatment and evaluation in regards to massively distended stomach and esophagus. Patient will plan to proceed forward with plan of care per his recommendations. 6. We will continue to follow the patient closely; depending on the patient's progress, we may plan for discharge home as early as tomorrow, 04/17/2021. Patient will need clearance by multiple medical providers prior to discharge. 7. Patient can follow-up with Pool Nathan PA-C or Dr. Joey Sidhu at [facility] in 2-3 weeks following discharge <Nacho Sidhu - Last Filed: 04/17/21 13:10> Progress Note - Text Seen and examined today at bedside. I also discussed the patient and reviewed his findings with the firewall engineer yesterday Dr. Diehl. Patient is not having any more chest pain. He denies any shortness of breath. He is still vomiting. He is abdomen is very distended. He says his legs are doing well. He says the pain in his back is adequately controlled. I reviewed his imaging and he has severe distention and is being seen with general surgery. If he continues to vomiting may need an NG tube, he is scheduled for some testing tomorrow as per surgery and I think that is appropri ate. His cardiac status appears to be stable at this point. He is continuing his management in terms of his GI issues with general surgery. His lumbar spine surgical site is stable and he does not speak be having any specific, occasions at the surgical site or with his surgery per se. We'll continue current management and avoid further indications from general surgery as the patient progresses.
[2021-04-17 10:22] LABS: African American GFR (CKD) >90 (>60 ml/min/1.73 sqM); Anion Gap 9 mmol/L; Blood Urea Nitrogen 19 mg/dL (9-20); Calcium 9.1 mg/dL (8.4-10.2); Carbon Dioxide 27 mmol/L (22-30); Chloride 96 mmol/L (98-107); Glucose 158 mg/dL (74-99); Non-African American GFR(CKD) 88 (>60 ml/min/1.73 sqM); Potassium 3.9 mmol/L (3.5-5.1); Sodium 132 mmol/L (137-145)
--- NOTE | 2021-04-17 11:02 | P.GSCN ---
History of Present Illness Consult date: 04/17/21 History of present illness: 70-year-old male that recently underwent a lumbar laminectomy, is complaining of upper epigastric and chest pain. CT a of the chest was performed with results concerning for gastric distention with consideration for gastroparesis versus gastric outlet obstruction. Patient was also noted to have some fluid in the esophagus. Cardiology did evaluate the patient and performed a cardiac catheterization with no acute disease process noted. The patient states that this morning he did have an emesis episode. He denies having any issues with abdominal distention or emesis prior to his surgical procedure. He denies any previous history of gastric outlet obstruction. He states that he did have an upper endoscopy many years ago and was found to have a mild hiatal hernia. Currently, he states he is somewhat distended. He denies having a bowel movement or flatus since his procedure. He does have a history of diabetes. Blood glucose levels have ranged from 140-250. Review of Systems All systems: negative Past Medical History Past Medical History: Coronary Artery Disease (CAD), Cancer, Diabetes Mellitus, GERD/Reflux, Hyperlipidemia, Hypertension, Prostate Disorder Additional Past Medical History / Comment(s): Diet control type 2 diabetes,. Spinal stenosis. Hx skin cancer, varicose veins, cardiac arrythmia History of Any Multi-Drug Resistant Organisms: None Reported Past Surgical History: Cardiac Ablation, Heart Catheterization With Stent, Orthopedic Surgery Additional Past Surgical History / Comment(s): 11/14/20 WAS SCHEDULED FOR LUMBAR DECOMPRESION AND FUSION - HOWEVER, IT WAS CANCELLED DUE TO CARDIAC ARRYTHMIA. rt knee surgery for torn cartilage, left hand surgery(not sure what), left forearm surgery after accident to "clean it out", Past Anesthesia/Blood Transfusion Reactions: Previous Problems w/ Anesthesia Additional Past Anesthesia/Blood Transfusion Reaction / Comm: heart rate went down to 30 and had an arrythmia in operating room October 2020 -back surgery canceled Date of Last Stent Placement:: 2008 Smoking Status: Former smoker - Past Family History Mother Family Medical History: No Reported History Medications and Allergies Home Medications Medication Instructions Recorded Confirmed Type Alfuzosin HCl [Uroxatral] 10 mg PO HS 03/29/14 04/10/21 History Atorvastatin [Lipitor] 40 mg PO HS 03/29/14 04/10/21 History valACYclovir HCL [Valacyclovir] 1,000 mg PO HS 03/29/14 04/10/21 History Alpha Lipoic Acid. 600 mg PO DAILY 02/02/19 04/10/21 History Cinnamon Bark [Cinnamon] 2,000 mg PO DAILY 02/02/19 04/10/21 History Ergocalciferol [Vitamin D2 50,000 units PO SUWE 02/02/19 04/10/21 History (DRISDOL)] Metoprolol Tartrate [Lopressor] 12.5 mg PO BID 02/02/19 04/10/21 History Tolterodine [Detrol] 2 mg PO QAM 02/02/19 04/10/21 History Ubidecarenone [Co Q-10] 400 mg PO DAILY 02/02/19 04/10/21 History Vitamin B Complex 1 each PO DAILY 02/02/19 04/10/21 History amLODIPine BESYLATE/BENAZEPRIL 1 cap PO QAM 10/25/20 04/10/21 History [Lotrel 5-40 MG] Aspirin [Adult Low Dose Aspirin EC] 81 mg PO DAILY 01/28/21 04/10/21 History Magnesium Oxide 400 mg PO 1500 01/28/21 04/10/21 History Allergies Allergy/AdvReac Type Severity Reaction Status Date / Time metformin AdvReac INCREASED Verified 04/10/21 09:54 CREATININE sitagliptin [From Junuvia] AdvReac INCREASED Verified 04/10/21 09:54 CREATININE Surgical - Exam Osteopathic Statement: *. No significant issues noted on an osteopathic structural exam other than those noted in the History and Physical/Consult. Vital Signs Temp Pulse Resp BP Pulse Ox 98.0 F 75 18 161/84 98 04/15/21 06:42 04/15/21 06:42 04/15/21 06:42 04/15/21 06:42 04/15/21 06:42 - General well nourished, no distress - Eyes normal ocular movement - ENT no hearing loss - Neck trachea midline - Respiratory normal respiratory effort - Abdomen Abdomen: soft, distended - Psychiatric oriented to time, oriented to person, oriented to place Results - Labs 04/16/21 05:50 04/17/21 09:37 Abnormal Lab Results - Last 24 Hours (Table) 04/16/21 04/16/21 04/16/21 Range/Units 05:50 05:50 10:42 D-Dimer 3.71 H (<0.60) mg/L FEU Sodium (137-145) mmol/L Chloride (98-107) mmol/L Anion Gap 15.40 H (4.00-12.00) mmol/L Glucose 141 H (70-110) mg/dL POC Glucose (mg/dL) (75-99) mg/dL HDL Cholesterol 38.90 L (40.00-60.00) mg/dL 04/16/21 04/17/21 04/17/21 Range/Units 19:48 05:54 09:37 D-Dimer (<0.60) mg/L FEU Sodium 132 L (137-145) mmol/L Chloride 96 L (98-107) mmol/L Anion Gap (4.00-12.00) mmol/L Glucose 158 H (70-110) mg/dL POC Glucose (mg/dL) 225 H 142 H (75-99) mg/dL HDL Cholesterol (40.00-60.00) mg/dL Diabetes panel 04/16/21 04/16/21 04/17/21 Range/Units 05:50 05:50 09:37 Sodium 141 132 L (135-145) mmol/L Potassium 4.1 3.9 (3.5-5.5) mmol/L Chloride 104 96 L (96-109) mmol/L Carbon Dioxide 21.6 27 (21.6-31.8) mmol/L BUN 12.6 19 (9.0-27.0) mg/dL Creatinine 1.0 0.89 (0.6-1.5) mg/dL Glucose 141 H 158 H (70-110) mg/dL Calcium 8.8 9.1 (8.7-10.3) mg/dL Triglycerides 114.00 (0.00-149.00) mg/dL HDL Cholesterol 38.90 L (40.00-60.00) mg/dL Calcium panel 04/16/21 04/17/21 Range/Units 05:50 09:37 Calcium 8.8 9.1 (8.7-10.3) mg/dL Pituitary panel 04/16/21 04/17/21 Range/Units 05:50 09:37 Sodium 141 132 L (135-145) mmol/L Potassium 4.1 3.9 (3.5-5.5) mmol/L Chloride 104 96 L (96-109) mmol/L Carbon Dioxide 21.6 27 (21.6-31.8) mmol/L BUN 12.6 19 (9.0-27.0) mg/dL Creatinine 1.0 0.89 (0.6-1.5) mg/dL Glucose 141 H 158 H (70-110) mg/dL Calcium 8.8 9.1 (8.7-10.3) mg/dL Adrenal panel 04/16/21 04/17/21 Range/Units 05:50 09:37 Sodium 141 132 L (135-145) mmol/L Potassium 4.1 3.9 (3.5-5.5) mmol/L Chloride 104 96 L (96-109) mmol/L Carbon Dioxide 21.6 27 (21.6-31.8) mmol/L BUN 12.6 19 (9.0-27.0) mg/dL Creatinine 1.0 0.89 (0.6-1.5) mg/dL Glucose 141 H 158 H (70-110) mg/dL Calcium 8.8 9.1 (8.7-10.3) mg/dL Assessment and Plan Plan: 70-year-old male with abdominal distention, gastric distention, epigastric pain status post laminectomy. Based on the patient's history of diabetes, gastroparesis and ileus are more likely reason for gastric distention rather than gastric outlet obstruction. Patient chronic history of any concerns obstruction. At this point, I would recommend tight glycemic control. We will begin the patient on Reglan and keep the patient on a clear liquid diet for now. We will also order a gastric emptying study for further evaluation of gastroparesis. If any further concern for gastric outlet obstruction, will plan for upper endoscopy for further evaluation. The case was discussed with patient's primary care team, Dr. Tamayo, and security investigator, Dr. Lai, at bedside.
[2021-04-17] MEDS: METOCLOPRAMIDE 5 MG/ML 2 ML VIAL IVP SCH ×2 (11:29→23:00)
--- NOTE | 2021-04-17 11:33 | P.PN ---
Subjective Progress Note Date: 04/17/21 French Boudreaux is a 70 yo M with PMH of spinal stenosis, CAD, HTN, HLD who is admitted for lumbar decompression and laminectomy. He underwent this procedure yesterday with Dr. Sidhu and tolerated well. He does have some back pain today but denies leg pain or numbness. He complains of chest pain that feels like a band since last night. He denies shortness of breath, diaphoresis, chills. 04/17/2021 yesterday underwent cardiac catheterization reporting mild to moderate CAD, patent proximal LAD stent, 30-40% stenosis and 50% stenosis of the first OM, recommending maximizing medical therapy. Echo reported normal LV function, EF 55-60% with grade 1 diastolic dysfunction. Mild tachycardia, systolic blood pressures trending from 140s to 170s, maintaining O2 sats in the 90s on room air. Denies chest pain, palpitations or shortness of breath. Denies cough or congestion. Chest CTA reported negative for pulmonary embolism, massive distended stomach and esophagus with fluid extending into the esophagus, gastroparesis, possible gastric outlet obstruction.consuming 25-75% of diet .Reports nausea with 1 episode of vomiting this morning. Burping,no flatus, no BM. Evaluated by general surgery with recommendations noted and appreciated, discussing gastric emptying study. Voiding without difficulty, pain controlled Afebrile, T-max 99.1. Sodium 132, renal function stable, blood sugars currently controlled. Objective - Vital Signs Vital signs: Vital Signs Temp 98.3 F 04/16/21 20:00 Pulse 100 04/17/21 04:00 Resp 18 04/17/21 04:00 BP 142/83 04/17/21 04:00 Pulse Ox 92 L 04/17/21 04:00 Intake & Output 04/16/21 04/17/21 04/17/21 18:59 06:59 18:59 Intake Total 718 180 Output Total 520 Balance 198 180 Intake: IV 200 Intake, IV Titration 400 Amount Sodium Chloride 0.9% 1, 400 000 ml In Empty Bag 1 bag @ 1 ML/KG/HR 98.8 mls/hr IV .Q10H8M [facility] Rx#: [id number] Oral 118 180 Output: Urine 520 Other: Voiding Method Urinal # Voids 1 2 - Exam General: Sitting up in bed, no acute distress. NAD. Vitals reviewed Eyes: PERRL, EOMI, conjunctiva normal HENT: normocephalic, mucus membranes moist Neck: supple, no JVD Lungs: normal respiratory effort, no rhonchi, wheezes or rales CV: Regular rate and rhythm, no murmur. Peripheral pulses 2+ Abdomen: soft, distended, no organomegaly,+BS Skin: warm and dry. Neuro: A&Ox3, normal mood and affect - Labs CBC & Chem 7: 04/16/21 05:50 04/17/21 09:37 Labs: Abnormal Lab Results - Last 24 Hours (Table) 04/16/21 04/16/21 04/16/21 Range/Units 05:50 05:50 10:42 D-Dimer 3.71 H (<0.60) mg/L FEU Sodium (137-145) mmol/L Chloride (98-107) mmol/L Anion Gap 15.40 H (4.00-12.00) mmol/L Glucose 141 H (70-110) mg/dL POC Glucose (mg/dL) (75-99) mg/dL HDL Cholesterol 38.90 L (40.00-60.00) mg/dL 04/16/21 04/17/21 04/17/21 Range/Units 19:48 05:54 09:37 D-Dimer (<0.60) mg/L FEU Sodium 132 L (137-145) mmol/L Chloride 96 L (98-107) mmol/L Anion Gap (4.00-12.00) mmol/L Glucose 158 H (70-110) mg/dL POC Glucose (mg/dL) 225 H 142 H (75-99) mg/dL HDL Cholesterol (40.00-60.00) mg/dL Assessment and Plan Assessment: 1. Spinal stenosis s/p laminectomy and decompression 2. Chest pain. Status post catheterization. Maximize medical therapy 3. Gastroparesis, general surgery following 4. HTN 5. Elevated d-dimer. CTA negative for PE 6. Atelectasis 7. Hyponatremia 8. Leukocytosis, suspect reactive, expected Plan: Continue on current medication regime ,monitoring and symptomatic treatment. Pain management as per primary-orthopedic spine. Increase activity as tolerated. PT/OT. PPI,Reglan added to med regimen. Pending gastric emptying study per general surgery. Close monitoring of Accu-Cheks, NovoLog sliding scale and hemoglobin A1c ordered. Aggressive pulmonary toileting with incentive spirometer reinforced. Repeat labs in morning, close monitoring of electrolytes. The impression and plan of care has been dictated as directed. : I performed a history and examination of this patient, discussed the same with the dictator. I agree with the dictator's note ,documented as a scribe. Any a dditional findings or plans will be noted.
[2021-04-17 11:48] LABS: Glucose,Whole Blood 157 mg/dL (75-99)
[2021-04-17] MEDS: INSULIN ASPART (NovoLOG) 100 UNIT/ML VIAL SQ SCH ×3 (12:38→20:03)
[2021-04-17] MEDS: SODIUM CHLORIDE 0.9% 1,000 ML in EMPTY BAG 1 BAG IV SCH ×2 (14:05→20:03)
[2021-04-17 16:54] LABS: Glucose,Whole Blood 164 mg/dL (75-99)
[2021-04-17] MEDS ORDERED: FUROSEMIDE 10 MG/ML 4 ML VIAL IV STA ×2 (17:09→18:54)
[2021-04-17] MEDS ORDERED: METOPROLOL TARTRATE 50 MG TAB PO STA (17:09)
[2021-04-17] MEDS: MAGNESIUM OXIDE 400 MG TAB PO SCH (17:29)
[2021-04-17] MEDS: PANTOPRAZOLE 40 MG TABLET PO SCH (17:30)
--- NOTE | 2021-04-17 17:41 | XR ---
EXAMINATION TYPE: XR chest 1V portable DATE OF EXAM: 04/17/2021 CLINICAL HISTORY: flash pulm edema. Difficulty in breathing. TECHNIQUE: Portable frontal view of the chest. COMPARISON: 04/04/2021 FINDINGS: Low lung volumes with mild bibasilar atelectasis. The cardiomediastinal silhouette is with in normal limits for size. Pulmonary vasculature is normal. There is no focal air space opacity. No pleural effusion. No pneumothorax seen. No acute displaced osseous fracture. IMPRESSION: Low lung volumes. No acute cardiopulmonary process.
[2021-04-17 19:45] LABS: Glucose,Whole Blood 160 mg/dL (75-99)
[2021-04-17] MEDS: TAMSULOSIN 0.4 MG CAP.ER.24H PO SCH (20:02)
[2021-04-17] MEDS: METOPROLOL TARTRATE 50 MG TAB PO SCH (20:02)
[2021-04-17] MEDS: ATORVASTATIN 40 MG TAB PO SCH (20:03)
[2021-04-17] MEDS ORDERED: FUROSEMIDE 10 MG/ML 2 ML VIAL IV STA (20:07)
[2021-04-17] MEDS: valACYclovir HCL 1,000 MG TABLET PO SCH (20:41)
[2021-04-18] MEDS: SODIUM CHLORIDE 0.9% 1,000 ML in EMPTY BAG 1 BAG IV SCH ×3 (05:17→23:38)
[2021-04-18] MEDS: SODIUM CHLORIDE 0.9% 1,000 ML IV SCH ×2 (05:17→23:30)
[2021-04-18 06:02] LABS: Glucose,Whole Blood 158 mg/dL (75-99)
[2021-04-18] MEDS: INSULIN ASPART (NovoLOG) 100 UNIT/ML VIAL SQ SCH ×4 (07:04→22:58)
[2021-04-18] MEDS ORDERED: IPRATROPIUM-ALBUTEROL 3 ML NEB INHALATION PRN (08:06)
[2021-04-18] MEDS ORDERED: RX INFO: IV CONTRAST WAS GIVEN 1 EACH MISC MISCELLANE PRN (08:29)
[2021-04-18] MEDS: IPRATROPIUM-ALBUTEROL 3 ML NEB INHALATION SCH ×4 (08:36→20:30)
--- NOTE | 2021-04-18 09:40 | P.PN ---
Progress Note - Text Progress Note Date: 04/18/21 Attempts to see patient this morning. He is currently in radiology for testing for his gastric emptying study, and was unable to be seen. Postoperative day #3 status post minimally invasive decompression and fusion for his severe spinal stenosis with facet cyst and lower extremity radiculopathy Gastric distention with possible ileus versus obstruction Status post cardiac workup which ruled out acute cardiac pathology I was unable to see the patient today but he has been making progress in terms of his lumbar spine. He is continued to mobilize. His pain has been adequately controlled and his wounds are stable. He has had significant postoperative course due to his chest discomfort and abdominal issues. Cardiac pathology has been worked up and pulled out but he has significant gastric distention which is continuing to be worked up and managed with general surgery service. He is currently having a gastric emptying study. He'll continue management as per surgery in this regard and medicine. Once this is stabilized we will be okay from a spine standpoint for preparation for discharge
[2021-04-18] MEDS: METOCLOPRAMIDE 5 MG/ML 2 ML VIAL IVP SCH ×4 (11:54→23:12)
[2021-04-18] MEDS: LACTATED RINGERS 1,000 ML IV SCH (11:54)
[2021-04-18 12:01] LABS: Glucose,Whole Blood 138 mg/dL (75-99)
[2021-04-18] MEDS: lisinopriL 20 MG TAB PO SCH (12:34)
[2021-04-18] MEDS: MAGNESIUM OXIDE 400 MG TAB PO SCH (12:34)
[2021-04-18] MEDS: SENNOSIDES-DOCUSATE SODIUM 1 EACH TAB PO SCH (12:34)
[2021-04-18] MEDS: amLODIPine 5 MG TAB PO SCH (12:34)
[2021-04-18] MEDS: METOPROLOL TARTRATE 50 MG TAB PO SCH ×2 (12:34→22:57)
[2021-04-18] MEDS: FOLIC ACID-VIT B COMPLEX-VIT C 1 CAP PO SCH (12:34)
[2021-04-18] MEDS: OXYBUTYNIN XL 5 MG TAB.ER.24 PO SCH (12:35)
[2021-04-18] MEDS: ASPIRIN 81 MG PO SCH (12:35)
[2021-04-18] MEDS: PIPERACILLIN-TAZOBACTAM 3.375 GM in SODIUM CHLORIDE 0.9% 100 ML IVPB SCH ×2 (12:35→18:38)
[2021-04-18 13:08] LABS: Calcium 8.5 mg/dL (8.4-10.2)
[2021-04-18 13:17] LABS: Potassium 3.6 mmol/L (3.5-5.1)
[2021-04-18 13:24] LABS: HCT 44.2 % (39.0-53.0); MCH 32.7 pg (25.0-35.0); MCHC 34.1 g/dL (31.0-37.0); MCV 96.1 fL (80.0-100.0); Mean Platelet Volume 7.8; Platelet Count 253 k/uL (150-450); RDW 13.3 % (11.5-15.5); WBC 8.2 k/uL (3.8-10.6)
--- NOTE | 2021-04-18 13:43 | NM ---
EXAMINATION TYPE: NM gastric emptying static DATE OF EXAM: 04/18/2021 COMPARISON: NONE HISTORY: Following administration of 2 mCi Tc 99m Sulfur Colloid with 8 oz. Ensure, projection images of the a bdomen were obtained 3 minutes post ingestion. Patient Emptying Values 1 Hour 22 % 2 Hours 37 % 3 Hours 56 % 4 Hours 68 % Gastroesophagel reflux: None IMPRESSION: 1. Findings compatible with delayed gastric emptying. Gastric emptying normal percentage values: 30 minutes: <70% of retention (> 30% emptying) suggests abnormally fast emptying. 60 minutes: <90% retention (>10% emptying) is normal; less than 30% retention (>70% emptying) suggest s abnormally rapid empying. 90 minutes: <65% retention (> 35% emptying) is normal. 120 minutes: <60% retention (> 40% emptying) is normal. 180 minutes: <30% retention (> 70% emptying) is normal. Gastric emptying T-1/2: Solid: The normal range is 60-105 minutes Liquid only: Normal range is 10-45 minutes. Liquid only-children: At 60 minutes, normal range is 44-58 % . Liquid only-infants: At 60 minutes, normal range is 32-64 %. Additional references: Gastric Emptying Scintigraphy [email or web address]://[email or web address]
--- NOTE | 2021-04-18 13:59 | P.PN ---
Subjective Progress Note Date: 04/18/21 Pt seen and examined at bedside. Had 2 bowel movements today. Tolerating clear liquids today. No emesis episodes today. Gastric emptying study completed. Objective - Vital Signs Vital signs: Vital Signs Temp 98.4 F 04/18/21 12:00 Pulse 92 04/18/21 12:30 Resp 18 04/18/21 12:00 BP 157/92 04/18/21 12:00 Pulse Ox 98 04/18/21 12:00 Intake & Output 04/17/21 04/18/21 04/18/21 18:59 06:59 18:59 Intake Total 180 Output Total 200 700 Balance -20 -700 Intake: Oral 180 Output: Urine 200 700 Other: Voiding Method Urinal Urinal Urinal # Voids 2 1 1 # Bowel Movements 1 1 - Constitutional General appearance: Present: cooperative, no acute distress - Gastrointestinal Gastrointestinal Comment(s): soft, improved distention, no rebound or guarding - Psychiatric Psychiatric: Present: A&O x's 3 - Labs CBC & Chem 7: 04/18/21 12:30 04/18/21 12:30 Labs: Abnormal Lab Results - Last 24 Hours (Table) 04/17/21 04/17/21 04/17/21 Range/Units 16:53 19:43 21:03 Sodium (137-145) mmol/L BUN (9-20) mg/dL Creatinine (0.66-1.25) mg/dL Glucose (74-99) mg/dL POC Glucose (mg/dL) 164 H 160 H (75-99) mg/dL Procalcitonin 3.11 H (0.02-0.09) ng/mL 04/18/21 04/18/21 04/18/21 Range/Units 05:59 11:49 12:30 Sodium 134 L (137-145) mmol/L BUN 52 H (9-20) mg/dL Creatinine 1.28 H (0.66-1.25) mg/dL Glucose 140 H (74-99) mg/dL POC Glucose (mg/dL) 158 H 138 H (75-99) mg/dL Procalcitonin (0.02-0.09) ng/mL Assessment and Plan Plan: Gastric emptying study reviewed. Delayed gastric emptying noted. Continue with reglan and monitor glucose levels. Patient is currently tolerating clear liquid diet. We will slowly advance as the patient tolerates. Currently, there is no plan for surgical intervention. If any concern for obstruction, I would recommen d GI eval and possible endoscopy.
[2021-04-18 14:03] LABS: Band Neutrophils % 10 %; Lymphocytes # (M) 0.57 k/uL (1.0-4.8); Monocytes # (M) 0.98 k/uL (0-1.0); Neutrophils % (M) 71 %; Nucleated Red Blood Cells 0 /100 WBC (0-0); Total Cells Counted 100
[2021-04-18 14:05] LABS: Toxic Granulation Present
--- NOTE | 2021-04-18 14:29 | P.CNPUL ---
History of Present Illness Consult date: 04/18/21 Requesting physician: Nacho Sidhu Reason for consult: other (Hypoxemia) Chief complaint: Status post lumbar laminectomy History of present illness: This is a 70-year-old white male who was admitted initially on 04/15/2021, and he underwent laminectomy and decompression of L4-L5, and excision of facet cyst L4-L5, this was done uneventfully, and postoperatively the patient developed what seems to be mostly GI symptoms and ileus. In the meantime he was also noted to have significant bibasilar atelectasis especially on the right side with elevated right hemidiaphragm, and he was requiring higher FiO2 up to 7 L/m today, with O2 saturation of 98%. CT angiogram of the chest done on 04/16 it showed mostly atelectasis and questionable infiltrates at the bases, but again there was no evidence of pulmonary embolism. Cardiac catheterization was also done on 04/16, and it showed mild to moderate coronary artery disease, patent proximal LAD stent, mid LAD 30-40% stenosis, and obtuse marginal branch 50% stenosis. Normal left-sided filling pressures were noted. At any rate considering the patient is having increased requirement of high FiO2, this consult was initiated. Patient denies being short of breath, denies cough, denies wheezing denies any chest pain. He is presently on 7 L nasal cannula. Continues to have significant GI symptoms related to his ileus. Labs today showed a relatively normal CBC, normal electrolytes, BUN however is 52 creatinine is 1.28 pro calcitonin is 3.11. Review of Systems CONSTITUTIONAL: Denies weight loss fever chills. HEENT: Negative. CARDIOVASCULAR: + chest pain. Denies orthopnea. Denies PND. Denies palpitations RESPIRATORY: Denies shortness of breath. GASTROINTESTINAL: As noted in HPI HEMATOLOGIC: Negative. GENITOURINARY: Negative. SKIN: Denies pruitis. Denies rash. Past Medical History Past Medical History: Coronary Artery Disease (CAD), Cancer, Diabetes Mellitus, GERD/Reflux, Hyperlipidemia, Hypertension, Prostate Disorder Additional Past Medical History / Comment(s): Diet control type 2 diabetes,. Spinal stenosis. Hx skin cancer, varicose veins, cardiac arrythmia History of Any Multi-Drug Resistant Organisms: None Reported Past Surgical History: Cardiac Ablation, Heart Catheterization With Stent, Orthopedic Surgery Additional Past Surgical History / Comment(s): 11/14/20 WAS SCHEDULED FOR LUMBAR DECOMPRESION AND FUSION - HOWEVER, IT WAS CANCELLED DUE TO CARDIAC ARRYTHMIA. rt knee surgery for torn cartilage, left hand surgery(not sure what), left forearm surgery after accident to "clean it out", Past Anesthesia/Blood Transfusion Reactions: Previous Problems w/ Anesthesia Additional Past Anesthesia/Blood Transfusion Reaction / Comment(s): heart rate went down to 30 and had an arrythmia in operating room October 2020 -back surgery canceled Date of Last Stent Placement:: 2008 Smoking Status: Former smoker - Past Family History Mother Family Medical History: No Reported History Medications and Allergies Home Medications Medication Instructions Recorded Confirmed Type Alfuzosin HCl [Uroxatral] 10 mg PO HS 03/29/14 04/10/21 History Atorvastatin [Lipitor] 40 mg PO HS 03/29/14 04/10/21 History valACYclovir HCL [Valacyclovir] 1,000 mg PO HS 03/29/14 04/10/21 History Alpha Lipoic Acid. 600 mg PO DAILY 02/02/19 04/10/21 History Cinnamon Bark [Cinnamon] 2,000 mg PO DAILY 02/02/19 04/10/21 History Ergocalciferol [Vitamin D2 50,000 units PO SUWE 02/02/19 04/10/21 History (DRISDOL)] Metoprolol Tartrate [Lopressor] 12.5 mg PO BID 02/02/19 04/10/21 History Tolterodine [Detrol] 2 mg PO QAM 02/02/19 04/10/21 History Ubidecarenone [Co Q-10] 400 mg PO DAILY 02/02/19 04/10/21 History Vitamin B Complex 1 each PO DAILY 02/02/19 04/10/21 History amLODIPine BESYLATE/BENAZEPRIL 1 cap PO QAM 10/25/20 04/10/21 History [Lotrel 5-40 MG] Aspirin [Adult Low Dose Aspirin EC] 81 mg PO DAILY 01/28/21 04/10/21 History Magnesium Oxide 400 mg PO 1500 01/28/21 04/10/21 History Allergies Allergy/AdvReac Type Severity Reaction Status Date / Time metformin AdvReac INCREASED Verified 04/10/21 09:54 CREATININE sitagliptin [From Junuv] AdvReac INCREASED Verified 04/10/21 09:54 CREATININE Physical Exam Vitals: Vital Signs Temp Pulse Pulse Resp BP Pulse Ox 04/18/21 12:30 92 04/18/21 12:20 92 04/18/21 12:00 98.4 F 94 18 157/92 98 04/18/21 11:50 102 H 04/18/21 03:08 98.6 F 102 H 18 120/79 95 04/17/21 23:09 98.8 F 107 H 22 123/77 95 04/17/21 20:00 97.6 F 131 H 18 104/66 95 04/17/21 17:00 105 H 18 142/85 95 Intake and Output 04/17/21 04/18/21 04/18/21 22:59 06:59 14:59 Output Total 200 700 Balance -200 -700 Output: Urine 200 700 Other: Voiding Method Urinal Urinal Urinal # Voids 1 1 # Bowel Movements 1 1 GENERAL: Reveals 70-year-old white male, pleasant, in no distress. Head: Atraumatic, normocephalic. HEENT: Lesley, EOMI, nonicteric, chronic masses, no JVD. LUNGS: Diminished breath sounds at the bases no crackles or rhonchi or wheezes HEART: Normal S1 and S2, no S3 gallop. ABDOMEN: Soft, slightly distended, no rebound no guarding. Negative bowel sound s. EXTREMITIES: No clubbing edema or cyanosis. Good pulses bilaterally. NEUROLOGIC: Awake and alert. Oriented x 3. Psychiatric: Normal mood, affect and normal mental status examination. Results - Laboratory Findings CBC and BMP: 04/18/21 12:30 04/18/21 12:30 PT/INR, D-dimer PT 10.7 sec (9.0-12.0) 04/04/21 08:42 INR 1.0 (<1.2) 04/04/21 08:42 D-Dimer 3.71 mg/L FEU (<0.60) H 04/16/21 10:42 Abnormal lab findings: Abnormal Labs 04/04/21 04/04/21 04/15/21 08:42 08:42 06:49 WBC Neutrophils # Lymphocytes # Lymphocytes # (Manual) D-Dimer Sodium Chloride Anion Gap BUN Creatinine Glucose 112 H POC Glucose (mg/dL) 115 H ALT 70 H Alkaline Phosphatase 127 H HDL Cholesterol Procalcitonin Urine Ketones 1+ H 04/15/21 04/16/21 04/16/21 11:45 05:50 05:50 WBC 14.6 H Neutrophils # 12.8 H Lymphocytes # 0.8 L Lymphocytes # (Manual) D-Dimer Sodium Chloride Anion Gap 15.40 H BUN Creatinine Glucose 141 H POC Glucose (mg/dL) 108 H ALT Alkaline Phosphatase HDL Cholesterol Procalcitonin Urine Ketones 04/16/21 04/16/21 04/16/21 05:50 10:42 19:48 WBC Neutrophils # Lymphocytes # Lymphocytes # (Manual) D-Dimer 3.71 H Sodium Chloride Anion Gap BUN Creatinine Glucose POC Glucose (mg/dL) 225 H ALT Alkaline Phosphatase HDL Cholesterol 38.90 L Procalcitonin Urine Ketones 04/17/21 04/17/21 04/17/21 05:54 09:37 11:47 WBC Neutrophils # Lymphocytes # Lymphocytes # (Manual) D-Dimer Sodium 132 L Chloride 96 L Anion Gap BUN Creatinine Glucose 158 H POC Glucose (mg/dL) 142 H 157 H ALT Alkaline Phosphatase HDL Cholesterol Procalcitonin Urine Ketones 04/17/21 04/17/21 04/17/21 16:53 19:43 21:03 WBC Neutrophils # Lymphocytes # Lymphocytes # (Manual) D-Dimer Sodium Chloride Anion Gap BUN Creatinine Glucose POC Glucose (mg/dL) 164 H 160 H ALT Alkaline Phosphatase HDL Cholesterol Procalcitonin 3.11 H Urine Ketones 04/18/21 04/18/21 04/18/21 05:59 11:49 12:30 WBC Neutrophils # Lymphocytes # Lymphocytes # (Manual) 0.57 L D-Dimer Sodium Chloride Anion Gap BUN Creatinine Glucose POC Glucose (mg/dL) 158 H 138 H ALT Alkaline Phosphatase HDL Cholesterol Procalcitonin Urine Ketones 04/18/21 12:30 WBC Neutrophils # Lymphocytes # Lymphocytes # (Manual) D-Dimer Sodium 134 L Chloride Anion Gap BUN 52 H Creatinine 1.28 H Glucose 140 H POC Glucose (mg/dL) ALT Alkaline Phosphatase HDL Cholesterol Procalcitonin Urine Ketones - Diagnostic Findings CT scan - chest: image reviewed (As noted in HPI.) Assessment and Plan Assessment: Impression: Postoperative hypoxemia, most likely secondary to postoperative atelectasis, doubt pneumonia but not entirely ruled out. Especially with elevated pro calcitonin level. Status post laminectomy and decompression L4-L5. Postoperative ileus. Coronary artery disease and previous PCI. Hypertension. Type 2 diabetes. Dyslipidemia. 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 This was in January 2021 Status post gastric emptying study as ordered by general surgery. And the recommendation was to continue Reglan and sugar control. Recommendation: Continue incentive spirometer. Encourage ambulation. Continue updrafts/DuoNeb. Continue Zosyn empirically. Titrate FiO2 as tolerated and maintain O2 saturation above 90%. We will continue to follow Time with Patient: Greater than 30
--- NOTE | 2021-04-18 14:46 | P.PN ---
Subjective Progress Note Date: 04/18/21 French Boudreaux is a 70 yo M with PMH of spinal stenosis, CAD, HTN, HLD who is admitted for lumbar decompression and laminectomy. He underwent this procedure yesterday with Dr. Sidhu and tolerated well. He does have some back pain today but denies leg pain or numbness. He complains of chest pain that feels like a band since last night. He denies shortness of breath, diaphoresis, chills. 04/17/2021 yesterday underwent cardiac catheterization reporting mild to moderate CAD, patent proximal LAD stent, 30-40% stenosis and 50% stenosis of the first OM, recommending maximizing medical therapy. Echo reported normal LV function, EF 55-60% with grade 1 diastolic dysfunction. Mild tachycardia, systolic blood pressures trending from 140s to 170s, maintaining O2 sats in the 90s on room air. Denies chest pain, palpitations or shortness of breath. Denies cough or congestion. Chest CTA reported negative for pulmonary embolism, massive distended stomach and esophagus with fluid extending into the esophagus, gastroparesis, possible gastric outlet obstruction.consuming 25-75% of diet .Reports nausea with 1 episode of vomiting this morning. Burping,no flatus, no BM. Evaluated by general surgery with recommendations noted and appreciated, discussing gastric emptying study. Voiding without difficulty, pain controlled Afebrile, T-max 99.1. Sodium 132, renal function stable, blood sugars currently controlled. 04/18/2021 Patient had a rough night,nausea,vomiting,hypertensive,tachycardic, hypoxia with bibasilar crackles, developed some flash pulmonary edema, received Lasix, beta nadine. Currently maintaining O2 sats in the 90s and 7 L high flow nasal cannula. Chest x-ray reported low lung volumes with no acute cardiopulmonary process, CTA suggested bilateral pleural thickening, atelectasis with possible infiltrates, no PE. Denies chest pain, palpitations or shortness of breath. Pro-calcitonin elevated, 3.11.Reports acid reflux with sour taste. Zosyn initiated. Abdomen distended, reports bowel movement this morning. Currently, in nuclear med for gastric emptying study. Afebrile, normal WBC. BMP pending. Objective - Vital Signs Vital signs: Vital Signs Temp 98.6 F 04/18/21 03:08 Pulse 102 H 04/18/21 03:08 Resp 18 04/18/21 03:08 BP 120/79 04/18/21 03:08 Pulse Ox 95 04/18/21 03:08 Intake & Output 04/17/21 04/18/21 04/18/21 18:59 06:59 18:59 Intake Total 180 Output Total 200 700 Balance -20 -700 Intake: Oral 180 Output: Urine 200 700 Other: Voiding Method Urinal Urinal # Voids 2 1 # Bowel Movements 1 - Exam General: Sitting up in stretcher, no acute distress. NAD. Vitals reviewed Eyes: PERRL, EOMI, conjunctiva normal HENT: normocephalic, mucus membranes moist Neck: supple, no JVD Lungs: normal respiratory effort, no rhonchi, wheezes, fine bibasilar rales CV: Regular rate and rhythm, no murmur. Peripheral pulses 2+ Abdomen: firm, distended, no organomegaly,+BS-hypo Skin: warm and dry. Neuro: A&Ox3, normal mood and affect - Labs CBC & Chem 7: 04/18/21 12:30 04/18/21 12:30 Labs: Abnormal Lab Results - Last 24 Hours (Table) 04/17/21 04/17/21 04/17/21 Range/Units 09:37 11:47 16:53 Sodium 132 L (137-145) mmol/L Chloride 96 L (98-107) mmol/L Glucose 158 H (74-99) mg/dL POC Glucose (mg/dL) 157 H 164 H (75-99) mg/dL Procalcitonin (0.02-0.09) ng/mL 04/17/21 04/17/21 04/18/21 Range/Units 19:43 21:03 05:59 Sodium (137-145) mmol/L Chloride (98-107) mmol/L Glucose (74-99) mg/dL POC Glucose (mg/dL) 160 H 158 H (75-99) mg/dL Procalcitonin 3.11 H (0.02-0.09) ng/mL Assessment and Plan Assessment: Spinal stenosis s/p laminectomy and decompression Hypoxic respiratory failure, postoperative ,possible aspiration pneumonia Chest pain. Status post catheterization. Maximize medical therapy Gastroparesis, general surgery following Diabetes mellitus type 2, A1c 5 Gastroesophageal reflux disease HTN Elevated d-dimer. CTA negative for PE Atelectasis Hyponatremia Leukocytosis, suspect reactive, expected Plan: Continue on current medication regime ,monitoring and symptomatic treatment. Empiric Zosyn initiated .nebulized bronchodilators initiated, pulmonary consulted. Gastric emptying study in progress. Maintain Reglan. Pain management. Increase activity as tolerated. Prognosis guarded given multiple complex medical issues. The impression and plan of care has been dictated as directed. : I performed a history and examination of this patient, discussed the same with the dictator. I agree with the dictator's note ,documented as a scribe. Any additional findings or plans will be noted.
[2021-04-18 16:31] LABS: Glucose,Whole Blood 131 mg/dL (75-99)
[2021-04-18] MEDS: PANTOPRAZOLE 40 MG TABLET PO SCH (18:04)
[2021-04-18 20:59] LABS: Glucose,Whole Blood 152 mg/dL (75-99)
[2021-04-18] MEDS: ATORVASTATIN 40 MG TAB PO SCH (22:57)
[2021-04-18] MEDS: TAMSULOSIN 0.4 MG CAP.ER.24H PO SCH (22:57)
[2021-04-18] MEDS: valACYclovir HCL 1,000 MG TABLET PO SCH (22:58)
[2021-04-19] MEDS: PIPERACILLIN-TAZOBACTAM 3.375 GM in SODIUM CHLORIDE 0.9% 100 ML IVPB SCH ×3 (00:59→17:30)
[2021-04-19 05:58] LABS: Glucose,Whole Blood 130 mg/dL (75-99)
[2021-04-19] MEDS: INSULIN ASPART (NovoLOG) 100 UNIT/ML VIAL SQ SCH ×4 (06:00→20:30)
[2021-04-19] MEDS: METOCLOPRAMIDE 5 MG/ML 2 ML VIAL IVP SCH ×4 (06:01→23:24)
[2021-04-19] MEDS: IPRATROPIUM-ALBUTEROL 3 ML NEB INHALATION SCH ×4 (08:11→20:11)
--- NOTE | 2021-04-19 08:40 | P.PN ---
Progress Note - Text Progress Note Date: 04/19/21 Orthopedic Spine History of present illness: Patient is a pleasant 70-year-old male who is seen and examined at the bedside following posterior lateral decompression and fusion performed Thursday. He has had some improvement since being seen and examined yesterday. He states he has had approximate 7-8 bowel movements since yesterday. He does continue to have some abdominal pain. He does admit his distention has improved. He states he was ambulating the room but became short of breath. Patient has been discussed with medicine who states the patient was on 7 L of O2. Medicine also states patient did have evidence of delayed gastric emptying. Pulmonology was consulted. He continues to be seen by pulmonology who is recommending incentive spirometer, encourage ambulation, medication, and titrating FiO2. He continues to be seen and examined by Dr. Osborne in general surgery in regards to his abdomen. Patient is currently on Reglan. He is currently on a clear liquid diet. They're not currently planning for surgical intervention. In regards to his lumbar spine, he feels his symptoms have can you to improve. He does have some pain around the surgical sites. He states he has been experiencing some left lateral thigh pain which is not severe. He denies any right lower extremity radiculopathy. He denies any lower extremity weakness bilaterally. He is voiding without difficulty. Currently does not complain of nausea, vomiting, fever, or chills. Patient states pain has been adequately controlled. Patient is voiding freely without difficulty. Patient continues to be seen and examined by multiple other medical providers including medicine as well. Patient's medical history also includes heart disease, type 2 diabetes, hypertension, and hyperlipidemia. Physical Exam Lumbar Fusion: Status post surgical day number 4 Patient is awake, alert, and oriented 3 Vital signs stable Good chest excursion with deep inspiration and expiration Abdomen is softer with some distention and some mild pain with palpation Dorsiflexion, plantarflexion, and extensor hallucis longus positive sustained bilaterally No signs or symptoms of DVT; no calf pain; pneumatic cuffs not currently intact bilateral lower extremities Optifoam dressings are clean, dry, and intact over the lumbar spine and right iliac crest; no erythema, purulence, or signs of infection Neurovascularly intact bilaterally lower extremities Assessment: Status post L4-5 minimally invasive posterior lateral decompression and fusion with transforaminal lumbar interbody fusion Low back pain L4-5 facet cyst L4-5 severe spinal canal stenosis L4-5 spondylolisthesis Lower extremity radiculopathy with weakness Abdominal distention Delayed gastric emptying Shortness of breath after increased ambulation Heart disease Type 2 diabetes Hypertension Hyperlipidemia Plan: 1. Ambulate as tolerated; work with Physical Therapy to increase mobilization 2. Continue pain control with IV and oral medications; will plan to begin weaning the patient off of IV narcotic medication in anticipation for discharge home in the next 1-2 days 3. Dressings to remain intact with Optifoam; patient may shower with dressings intact 4. Medical management can continue to manage patient for patient's other medical diagnoses including heart disease, type 2 diabetes, hypertension, hyperlipidemia, and heartburn 5. Patient will continue be seen and examined by Dr. Osborne in general surgery for further treatment and evaluation in regards to abdominal distention and pain with delayed gastric emptying. Patient will plan to proceed forward with plan of care per his recommendations. 6. Patient will continue be seen and examined by pulmonology. Patient is encouraged to continue with treatment per recommendations by pulmonology 7. We will continue to follow the patient closely; depending on the patient's progress, we may plan for discharge home over the weekend once cleared by multiple medical providers including general surgery, medicine, and pulmonology. 8. Patient can follow-up with Pool Nathan PA-C or Dr. Joey Sidhu at [facility] in 2-3 weeks following discharge
[2021-04-19] MEDS: SODIUM CHLORIDE 0.9% 1,000 ML in EMPTY BAG 1 BAG IV SCH (08:45)
[2021-04-19] MEDS: LACTATED RINGERS 1,000 ML IV SCH (08:45)
[2021-04-19 08:59] LABS: HCT 41.6 % (39.0-53.0); HGB 14.9 gm/dL (13.0-17.5); Hyperchromasia Slight; MCH 33.4 pg (25.0-35.0); MCHC 35.7 g/dL (31.0-37.0); MCV 93.5 fL (80.0-100.0); Mean Platelet Volume 7.2; Platelet Count 271 k/uL (150-450); Poikilocytosis Slight; RBC 4.45 m/uL (4.30-5.90); RDW 13.8 % (11.5-15.5); WBC 6.8 k/uL (3.8-10.6)
[2021-04-19] MEDS: lisinopriL 20 MG TAB PO SCH (09:40)
[2021-04-19] MEDS: METOPROLOL TARTRATE 50 MG TAB PO SCH ×2 (09:40→20:30)
[2021-04-19] MEDS: amLODIPine 5 MG TAB PO SCH (09:40)
[2021-04-19] MEDS: ASPIRIN 81 MG PO SCH (09:40)
[2021-04-19] MEDS: OXYBUTYNIN XL 5 MG TAB.ER.24 PO SCH (09:40)
[2021-04-19] MEDS: FOLIC ACID-VIT B COMPLEX-VIT C 1 CAP PO SCH (09:40)
[2021-04-19 09:42] LABS: Albumin 3.4 g/dL (3.5-5.0); Calcium 8.4 mg/dL (8.4-10.2); Potassium 3.3 mmol/L (3.5-5.1); Total Bilirubin 1.2 mg/dL (0.2-1.3); Total Protein 6.1 g/dL (6.3-8.2)
--- NOTE | 2021-04-19 09:57 | P.PN ---
Subjective Progress Note Date: 04/19/21 Patient seen and examined at bedside. No emesis episodes while on full liquid diet. He is having multiple bowel movements. Objective - Vital Signs Vital signs: Vital Signs Temp 97.9 F 04/19/21 03:23 Pulse 100 04/19/21 08:30 Resp 18 04/19/21 03:23 BP 130/81 04/19/21 03:23 Pulse Ox 94 L 04/19/21 03:23 Intake & Output 04/18/21 04/19/21 04/19/21 18:59 06:59 18:59 Intake Total 480 100 Output Total 300 800 Balance 180 -700 Weight 97.7 kg Intake: Intake, IV Titration 100 Amount Piperacillin-Tazobactam 3 100 .375 gm In Sodium Chloride 0.9% 100 ml @ 25 mls/hr IVPB Q8H [facility] Rx#: [id number] Oral 480 Output: Urine 300 800 Other: Voiding Method Urinal Bedside Commode Urinal # Voids 1 1 # Bowel Movements 1 1 - Constitutional General appearance: Present: cooperative - Gastrointestinal Gastrointestinal Comment(s): Soft, nontender, mild distention, no rebound, no guarding - Psychiatric Psychiatric: Present: A&O x's 3 - Labs CBC & Chem 7: 04/19/21 08:31 04/19/21 08:31 Labs: Abnormal Lab Results - Last 24 Hours (Table) 04/18/21 04/18/21 04/18/21 Range/Units 11:49 12:30 12:30 Lymphocytes # (Manual) 0.57 L (1.0-4.8) k/uL Sodium 134 L (137-145) mmol/L Potassium (3.5-5.1) mmol/L BUN 52 H (9-20) mg/dL Creatinine 1.28 H (0.66-1.25) mg/dL Glucose 140 H (74-99) mg/dL POC Glucose (mg/dL) 138 H (75-99) mg/dL ALT (4-49) U/L Total Protein (6.3-8.2) g/dL Albumin (3.5-5.0) g/dL 04/18/21 04/18/21 04/19/21 Range/Units 16:30 20:32 05:57 Lymphocytes # (Manual) (1.0-4.8) k/uL Sodium (137-145) mmol/L Potassium (3.5-5.1) mmol/L BUN (9-20) mg/dL Creatinine (0.66-1.25) mg/dL Glucose (74-99) mg/dL POC Glucose (mg/dL) 131 H 152 H 130 H (75-99) mg/dL ALT (4-49) U/L Total Protein (6.3-8.2) g/dL Albumin (3.5-5.0) g/dL 04/19/21 Range/Units 08:31 Lymphocytes # (Manual) (1.0-4.8) k/uL Sodium (137-145) mmol/L Potassium 3.3 L (3.5-5.1) mmol/L BUN 57 H (9-20) mg/dL Creatinine 1.38 H (0.66-1.25) mg/dL Glucose 143 H (74-99) mg/dL POC Glucose (mg/dL) (75-99) mg/dL ALT 50 H (4-49) U/L Total Protein 6.1 L (6.3-8.2) g/dL Albumin 3.4 L (3.5-5.0) g/dL Assessment and Plan Plan: Patient has not had emesis episodes over the past 24 hours. Is having multiple bowel movements. Ileus appears to be resolving. Patient still has slow gastric transit. Continue with Reglan at this time. Advance to soft diet. Continue medical management. No plan for any surgical intervention at this time.
[2021-04-19] MEDS: SENNOSIDES-DOCUSATE SODIUM 1 EACH TAB PO SCH (10:02)
[2021-04-19 10:19] LABS: Band Neutrophils % 18 %; Eosinophils # (M) 0.07 k/uL (0-0.7); Lymphocytes # (M) 0.95 k/uL (1.0-4.8); Metamyelocytes # (M) 0.07 k/uL (0); Metamyelocytes % 1 %; Monocytes # (M) 0.61 k/uL (0-1.0); Neutrophils % (M) 58 %; Nucleated Red Blood Cells 0 /100 WBC (0-0); Total Cells Counted 200; Toxic Granulation Present
[2021-04-19 10:20] LABS: Anisocytosis (M) Present; Dohle Bodies Present; Polychromasia Present; Toxic Vacuolation Present
[2021-04-19] MEDS ORDERED: Potassium Replacement Protocol 1 EACH MISC MISCELLANE PRN (11:19)
--- NOTE | 2021-04-19 11:25 | P.PN ---
Subjective Progress Note Date: 04/19/21 French Boudreaux is a 70 yo M with PMH of spinal stenosis, CAD, HTN, HLD who is admitted for lumbar decompression and laminectomy. He underwent this procedure yesterday with Dr. Sidhu and tolerated well. He does have some back pain today but denies leg pain or numbness. He complains of chest pain that feels like a band since last night. He denies shortness of breath, diaphoresis, chills. 04/17/2021 yesterday underwent cardiac catheterization reporting mild to moderate CAD, patent proximal LAD stent, 30-40% stenosis and 50% stenosis of the first OM, recommending maximizing medical therapy. Echo reported normal LV function, EF 55-60% with grade 1 diastolic dysfunction. Mild tachycardia, systolic blood pressures trending from 140s to 170s, maintaining O2 sats in the 90s on room air. Denies chest pain, palpitations or shortness of breath. Denies cough or congestion. Chest CTA reported negative for pulmonary embolism, massive distended stomach and esophagus with fluid extending into the esophagus, gastroparesis, possible gastric outlet obstruction.consuming 25-75% of diet .Reports nausea with 1 episode of vomiting this morning. Burping,no flatus, no BM. Evaluated by general surgery with recommendations noted and appreciated, discussing gastric emptying study. Voiding without difficulty, pain controlled Afebrile, T-max 99.1. Sodium 132, renal function stable, blood sugars currently controlled. 04/18/2021 Patient had a rough night,nausea,vomiting,hypertensive,tachycardic, hypoxia with bibasilar crackles, developed some flash pulmonary edema, received Lasix, beta nadine. Currently maintaining O2 sats in the 90s and 7 L high flow nasal cannula. Chest x-ray reported low lung volumes with no acute cardiopulmonary process, CTA suggested bilateral pleural thickening, atelectasis with possible infiltrates, no PE. Denies chest pain, palpitations or shortness of breath. Pro-calcitonin elevated, 3.11.Reports acid reflux with sour taste. Zosyn initiated. Abdomen distended, reports bowel movement this morning. Currently, in nuclear med for gastric emptying study. Afebrile, normal WBC. BMP pending. [id number] completed gastric emptying study yesterday, reporting no gastroeso phageal reflux, but compatible with delayed gastric emptying. Maintained on Reglan. Tolerating full liquid diet, with no nausea or emesis 24 hours. Belching, reports multiple loose bowel movements since receiving contrast. Maintaining O2 sats in the 90s on 7 L high flow nasal cannula. Nonproductive cough. Denies chest pain, palpitations. Telemetry sinus rhythm. Denies numbness or tingling. Labs pending. Objective - Vital Signs Vital signs: Vital Signs Temp 97.9 F 04/19/21 03:23 Pulse 100 04/19/21 08:30 Resp 18 04/19/21 03:23 BP 130/81 04/19/21 03:23 Pulse Ox 94 L 04/19/21 03:23 Intake & Output 04/18/21 04/19/21 04/19/21 18:59 06:59 18:59 Intake Total 480 100 Output Total 300 800 Balance 180 -700 Weight 97.7 kg Intake: Intake, IV Titration 100 Amount Piperacillin-Tazobactam 3 100 .375 gm In Sodium Chloride 0.9% 100 ml @ 25 mls/hr IVPB Q8H [facility] Rx#: [id number] Oral 480 Output: Urine 300 800 Other: Voiding Method Urinal Bedside Commode Urinal # Voids 1 1 # Bowel Movements 1 1 - Exam General: Sitting up in stretcher, no acute distress. NAD. Vitals reviewed Eyes: PERRL, EOMI, conjunctiva normal HENT: normocephalic, mucus membranes moist Neck: supple, no JVD Lungs: normal respiratory effort, no rhonchi, wheezes, fine bibasilar rales CV: Regular rate and rhythm, no murmur. Peripheral pulses 2+ Abdomen: Soft, mildly distended,diffuse tenderness, no organomegaly, no guarding ,+BS Skin: warm and dry. Neuro: A&Ox3, normal mood and affect - Labs CBC & Chem 7: 04/19/21 08:31 04/19/21 08:31 Labs: Abnormal Lab Results - Last 24 Hours (Table) 04/18/21 04/18/21 04/18/21 Range/Units 11:49 12:30 12:30 Lymphocytes # (Manual) 0.57 L (1.0-4.8) k/uL Metamyelocytes # (Man) (0) k/uL Sodium 134 L (137-145) mmol/L Potassium (3.5-5.1) mmol/L BUN 52 H (9-20) mg/dL Creatinine 1.28 H (0.66-1.25) mg/dL Glucose 140 H (74-99) mg/dL POC Glucose (mg/dL) 138 H (75-99) mg/dL ALT (4-49) U/L Total Protein (6.3-8.2) g/dL Albumin (3.5-5.0) g/dL 04/18/21 04/18/21 04/19/21 Range/Units 16:30 20:32 05:57 Lymphocytes # (Manual) (1.0-4.8) k/uL Metamyelocytes # (Man) (0) k/uL Sodium (137-145) mmol/L Potassium (3.5-5.1) mmol/L BUN (9-20) mg/dL Creatinine (0.66-1.25) mg/dL Glucose (74-99) mg/dL POC Glucose (mg/dL) 131 H 152 H 130 H (75-99) mg/dL ALT (4-49) U/L Total Protein (6.3-8.2) g/dL Albumin (3.5-5.0) g/dL 04/19/21 04/19/21 Range/Units 08:31 08:31 Lymphocytes # (Manual) 0.95 L (1.0-4.8) k/uL Metamyelocytes # (Man) 0.07 H (0) k/uL Sodium (137-145) mmol/L Potassium 3.3 L (3.5-5.1) mmol/L BUN 57 H (9-20) mg/dL Creatinine 1.38 H (0.66-1.25) mg/dL Glucose 143 H (74-99) mg/dL POC Glucose (mg/dL) (75-99) mg/dL ALT 50 H (4-49) U/L Total Protein 6.1 L (6.3-8.2) g/dL Albumin 3.4 L (3.5-5.0) g/dL Assessment and Plan Assessment: Spinal stenosis s/p laminectomy and decompression Acute Hypoxic respiratory failure, postoperative ,possible aspiration pneumonia Chest pain. Status post catheterization. Maximize medical therapy Ileus resolving,Delayed gastric emptying reported per gastric emptying study Acute renal failure Diabetes mellitus type 2, A1c 5 HTN Elevated d-dimer. CTA negative for PE Atelectasis Hyponatremia, resolving Leukocytosis, suspect reactive, expected, resolved Hypokalemia Plan: Continue on current medication regime ,monitoring and symptomatic treatment. Gentle IV fluid hydration. Labs pending- close monitoring of renal function as patient had IV contrast yesterday.Aggressive pulmonary toileting with nebulized bronchodilators , Zosyn. Incentive spirometer reinforced. Titrate O2 as per pulmonary. Continue on Reglan. Diet advancement as per surgery. Pain management. Feels weaker today, encouraged to increase activity as tolerated. Prognosis guarded given multiple complex medical issues. The impression and plan of care has been dictated as directed. : I performed a history and examination of this patient, discussed the same with the dictator. I agree with the dictator's note ,documented as a scribe. Any additional findings or plans will be noted.
[2021-04-19 11:59] LABS: Glucose,Whole Blood 133 mg/dL (75-99)
--- NOTE | 2021-04-19 12:15 | P.PN ---
Subjective Progress Note Date: 04/19/21 Principal diagnosis: Bibasilar atelectasis and hypoxemia This is a 70-year-old white male who was admitted initially on 04/15/2021, and he underwent laminectomy and decompression of L4-L5, and excision of facet cyst L4-L5, this was done uneventfully, and postoperatively the patient developed what seems to be mostly GI symptoms and ileus. In the meantime he was also noted to have significant bibasilar atelectasis especially on the right side with elevated right hemidiaphragm, and he was requiring higher FiO2 up to 7 L/m today, with O2 saturation of 98%. CT angiogram of the chest done on 04/16 it showed mostly atelectasis and questionable infiltrates at the bases, but again there was no evidence of pulmonary embolism. Cardiac catheterization was also done on 04/16, and it showed mild to moderate coronary artery disease, patent proximal LAD stent, mid LAD 30-40% stenosis, and obtuse marginal branch 50% stenosis. Normal left-sided filling pressures were noted. At any rate considering the patient is having increased requirement of high FiO2, this consult was initiated. Patient denies being short of breath, denies cough, denies wheezing denies any chest pain. He is presently on 7 L nasal cannula. Continues to have significant GI symptoms related to his ileus. Labs today showed a relatively normal CBC, normal electrolytes, BUN however is 52 creatinine is 1.28 pro calcitonin is 3.11. Patient was reevaluated today on 04/19/2021, patient is doing great today, he is down to 5 L nasal cannula, and he is not constipated anymore, no abdominal discomfort, no shortness of breath, no chest pain. CBC today is relatively normal electrolytes are normal renal profile showed a BUN of 57 creatinine 1.38, suspect it is prerenal azotemia. Will likely improve with hydration. Pulmonary-santillan the patient is asymptomatic. Objective - Vital Signs Vital signs: Vital Signs Temp 98.5 F 04/19/21 11:45 Pulse 91 04/19/21 11:45 Resp 18 04/19/21 11:45 BP 124/76 04/19/21 11:45 Pulse Ox 95 04/19/21 11:45 Intake & Output 04/18/21 04/19/21 04/19/21 18:59 06:59 18:59 Intake Total 480 100 Output Total 300 800 Balance 180 -700 Weight 97.7 kg Intake: Intake, IV Titration 100 Amount Piperacillin-Tazobactam 3 100 .375 gm In Sodium Chloride 0.9% 100 ml @ 25 mls/hr IVPB Q8H [facility] Rx#: [id number] Oral 480 Output: Urine 300 800 Other: Voiding Method Urinal Bedside Commode Urinal # Voids 1 1 # Bowel Movements 1 1 - Exam GENERAL: Reveals 70-year-old white male, pleasant, in no distress. Head: Atraumatic, normocephalic. HEENT: Lesley, EOMI, nonicteric, chronic masses, no JVD. LUNGS: Diminished breath sounds at the bases no crackles or rhonchi or wheezes HEART: Normal S1 and S2, no S3 gallop. ABDOMEN: Soft, slightly distended, no rebound no guarding. Negative bowel sounds. EXTREMITIES: No clubbing edema or cyanosis. Good pulses bilaterally. NEUROLOGIC: Awake and alert. Oriented x 3. Psychiatric: Normal mood, affect and normal mental status examination. - Labs CBC & Chem 7: 04/19/21 08:31 04/19/21 08:31 Labs: Abnormal Lab Results - Last 24 Hours (Table) 04/18/21 04/18/21 04/18/21 Range/Units 12:30 12:30 16:30 Lymphocytes # (Manual) 0.57 L (1.0-4.8) k/uL Metamyelocytes # (Man) (0) k/uL Sodium 134 L (137-145) mmol/L Potassium (3.5-5.1) mmol/L BUN 52 H (9-20) mg/dL Creatinine 1.28 H (0.66-1.25) mg/dL Glucose 140 H (74-99) mg/dL POC Glucose (mg/dL) 131 H (75-99) mg/dL ALT (4-49) U/L Total Protein (6.3-8.2) g/dL Albumin (3.5-5.0) g/dL 04/18/21 04/19/21 04/19/21 Range/Units 20:32 05:57 08:31 Lymphocytes # (Manual) 0.95 L (1.0-4.8) k/uL Metamyelocytes # (Man) 0.07 H (0) k/uL Sodium (137-145) mmol/L Potassium (3.5-5.1) mmol/L BUN (9-20) mg/dL Creatinine (0.66-1.25) mg/dL Glucose (74-99) mg/dL POC Glucose (mg/dL) 152 H 130 H (75-99) mg/dL ALT (4-49) U/L Total Protein (6.3-8.2) g/dL Albumin (3.5-5.0) g/dL 04/19/21 04/19/21 Range/Units 08:31 11:53 Lymphocytes # (Manual) (1.0-4.8) k/uL Metamyelocytes # (Man) (0) k/uL Sodium (137-145) mmol/L Potassium 3.3 L (3.5-5.1) mmol/L BUN 57 H (9-20) mg/dL Creatinine 1.38 H (0.66-1.25) mg/dL Glucose 143 H (74-99) mg/dL POC Glucose (mg/dL) 133 H (75-99) mg/dL ALT 50 H (4-49) U/L Total Protein 6.1 L (6.3-8.2) g/dL Albumin 3.4 L (3.5-5.0) g/dL Assessment and Plan Assessment: Impression: Postoperative hypoxemia, most likely secondary to postoperative atelectasis, doubt pneumonia but not entirely ruled out. Especially with elevated pro calcitonin level. Status post laminectomy and decompression L4-L5. Postoperative ileus. Improving clinically. Coronary artery disease and previous PCI. Hypertension. Type 2 diabetes. Dyslipidemia. 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 This was in January 2021 Status post gastric emptying study as ordered by general surgery. And the recommendation was to continue Reglan and sugar control. Recommendation: Continue incentive spirometer. Continue to ambulate. Continue updrafts/DuoNeb. Continue Zosyn empirically. Titrate FiO2 as tolerated and maintain O2 saturation above 90%. Patient is down to 5 L today, O2 saturation remains 95% We will continue to follow Time with Patient: Less than 30
--- NOTE | 2021-04-19 14:07 | CDI ---
Documentation Clarification Form Date: 04/19/2021 01:40:16 PM From: Cora Salas RN CCDS Admit Date: 04/17/2021 09:56:00 AM Patient Name: French Boudreaux Visit Number: [id number] Discharge Date: ATTENTION: The Clinical Documentation Specialists (CDI) and [facility] Coding Staff appreciate your assistance in clarifying documentation. Please respond to the clarification below the line at the bottom and electronically sign. The CDI & [facility] Coding staff will review the response and follow-up if needed. Please note: Queries are made part of the Legal Health Record. If you have any questions, please contact the author of this message via ITS. Dr. Nacho Sidhu Ileus is documented 04/17, Surgical Consult, and patient had Laminectomy and decompression TLIF 360, 04/15. Additional clarification is requested regarding the relationship, if any, that exists between the diagnosis and the procedure. Patients Admitting Diagnosis: Facet cyst L4 5, severe spinal stenosis L4 5, spondylolisthesis L4 5, lower extremity radiculopathy, lower extremity weakness, low back pain. Post-Operative Diagnosis: Facet cyst L4 5, severe spinal stenosis L4 5, spondylolisthesis L4 5, lower extremity radiculopathy, lower extremity weakness, low back pain. Procedure performed: Laminectomy and decompression L4 5. Excision of facet cyst L4 5. Posterior lateral decompression of facet fusion L4 L5. Minimally invasive TLIF for a 360 fusion L4 5. Discectomy for decompression L4 5. Fusion at L4 5. Autogenous bone grafting. Aspiration of bone marrow from the vertebral body pedicle from L4 on the right. Bone graft extenders. History/Risk Factors: 70-year-old male presents to [facility] for elective decompression and laminectomy surgery. Medical history: CAD, HTN and DM. 04/16, Medicine consult. Clinical Indicators: 04/16 CT Chest Angio for PE: Massively distended stomach and esophagus with fluid extending into the esophagus 04/17 Episode of vomiting. 04/18 Gastric Emptying study: Findings compatible with delayed gastric emptying. Treatment: 04/16 to current Senokot -S 1 PO Daily, 04/17 current Reglan 10mg IVP Q6HR. Consults: GI 04/17 Based on the patients history of diabetes, gastroparesis and ileus are more likely reason for gastric distention rather than gastric outlet obstruction. What relationship, if any, exists between the diagnosis of Ileus and the procedure: [ ] Ileus is a complication of surgical procedure [ ] Ileus is an expected outcome of the surgical procedure [ ] Ileus is related to patients co-morbid condition(s) of delayed gastric emptying & not a complication of the procedure [ ] Other please specify ____ [ ] Unable to determine (Template Last Revised: July 2020) The patient has a co morbidity condition of delayed gastric emptying, which is a significant factor for his ileus. I think that this is the primary issue for his ileus and it is not a complication of the procedure MTDD
--- NOTE | 2021-04-19 14:27 | CDI ---
Documentation Clarification Form Date: 04/19/2021 02:07:42 PM From: Cora Salas RN CCDS Admit Date: 04/17/2021 09:56:00 AM Patient Name: French Boudreaux Visit Number: [id number] Discharge Date: ATTENTION: The Clinical Documentation Specialists (CDI) and [facility] Coding Staff appreciate your assistance in clarifying documentation. Please respond to the clarification below the line at the bottom and electronically sign. The CDI & [facility] Coding staff will review the response and follow-up if needed. Please note: Queries are made part of the Legal Health Record. If you have any questions, please contact the author of this message via ITS. Dr. Nacho Sidhu Respiratory Failure is documented 04/18, Medicine progress note and patient had Laminectomy and decompression TLIF 360, 04/15. Additional clarification is requested regarding the relationship, if any, that exists between the diagnosis and the procedure. Patients Admitting Diagnosis: Facet cyst L4 5, severe spinal stenosis L4 5, spondylolisthesis L4 5, lower extremity radiculopathy, lower extremity weakness, low back pain. Post-Operative Diagnosis: Facet cyst L4 5, severe spinal stenosis L4 5, spondylolisthesis L4 5, lower extremity radiculopathy, lower extremity weakness, low back pain. Procedure performed: Laminectomy and decompression L4 5. Excision of facet cyst L4 5. Posterior lateral decompression of facet fusion L4 L5. Minimally invasive TLIF for a 360 fusion L4 5. Discectomy for decompression L4 5. Fusion at L4 5. Autogenous bone grafting. Aspiration of bone marrow from the vertebral body pedicle from L4 on the right. Bone graft extenders. History/Risk Factors: 70-year-old male presents to [facility] for elective decompression and laminectomy surgery. Medical history: CAD, HTN and DM. 04/16, Medicine consult. Clinical Indicators: 04/17 04/19 SpO2 95% 7L High flow oxygen Medicine Progress note 04/18, Hypoxic respiratory failure, postoperative, possible aspiration pneumonia. CTA Chest 04/16: Bilateral lower lobe infiltrate correlate clinically. Massively distended stomach and esophagus. Correlate for gastroparesis or gastric outlet obstruction. Patient would be at risk for aspiration with the amount of fluid extending into the mid to upper esophagus. CXR 04/17: Low lung volumes. Medicine progress note 04/18 Hypoxic Respiratory failure, postoperative, possible aspiration pneumonia Treatment: 04/18 - current Albuterol Ipratropium 0.5 mg -3mg 3ml Inhalation RT Q2H PRN, 04/18 current Albuterol Ipratropium 0.5 mg -3mg 3ml Inhalation RT QID BABAR, 04/17 to current 7L high flow oxygen. Consults: Pulmonary 04/18: Postoperative hypoxemia, most likely secondary to postoperative atelectasis, doubt pneumonia but not entirely ruled out. What relationship, if any, exists between the diagnosis of Respiratory Failure and the procedure: [ ] Respiratory Failure is a complication of surgical procedure [ ] Respiratory Failure is an expected outcome of the surgical procedure [ ] Respiratory Failure is related to patients co-morbid condition(s) of Aspiration pneumonia & not a complication of the procedure [ ] Other please specify ____ [ ] Unable to determine (Template Last Revised: July 2020) The patient's hypoxia is likely due to postoperative atelectasis and decreased activity. I do not believe that he has an acute aspiration pneumonia. Atelectasis is due to inactivity and pain from his surgery despite being prescribed early and frequent mobilization with incentive spirometry MTDD
--- NOTE | 2021-04-19 14:55 | CDI ---
Documentation Clarification Form Date: 04/19/2021 02:31:14 PM From: Cora Salas RN CCDS Admit Date: 04/17/2021 09:56:00 AM Patient Name: French Boudreaux Visit Number: [id number] Discharge Date: ATTENTION: The Clinical Documentation Specialists (CDI) and [facility] Coding Staff appreciate your assistance in clarifying documentation. Please respond to the clarification below the line at the bottom and electronically sign. The CDI & [facility] Coding staff will review the response and follow-up if needed. Please note: Queries are made part of the Legal Health Record. If you have any questions, please contact the author of this message via ITS. Dr. Nacho Sidhu Aspiration Pneumonia is documented 04/18, Medicine Progress note and patient had Laminectomy and decompression TLIF 360, 04/15. Additional clarification is requested regarding the relationship, if any, that exists between the diagnosis and the procedure. Patients Admitting Diagnosis: Facet cyst L4 5, severe spinal stenosis L4 5, spondylolisthesis L4 5, lower extremity radiculopathy, lower extremity weakness, low back pain. Post-Operative Diagnosis: Facet cyst L4 5, severe spinal stenosis L4 5, spondylolisthesis L4 5, lower extremity radiculopathy, lower extremity weakness, low back pain. Procedure performed: Laminectomy and decompression L4 5. Excision of facet cyst L4 5. Posterior lateral decompression of facet fusion L4 L5. Minimally invasive TLIF for a 360 fusion L4 5. Discectomy for decompression L4 5. Fusion at L4 5. Autogenous bone grafting. Aspiration of bone marrow from the vertebral body pedicle from L4 on the right. Bone graft extenders. History/Risk Factors: 70-year-old male presents to [facility] for elective decompression and laminectomy surgery. Medical history: CAD, HTN and DM. 04/16, Medicine consult. Clinical Indicators: 04/17 04/19 SpO2 95% 7L High flow oxygen Medicine Progress note 04/18, Hypoxic respiratory failure, postoperative, possible aspiration pneumonia. CTA Chest 04/16: Bilateral lower lobe infiltrate correlate clinically. Massively distended stomach and esophagus. Correlate for gastroparesis or gastric outlet obstruction. Patient would be at risk for aspiration with the amount of fluid extending into the mid to upper esophagus. CXR 04/17: Low lung volumes. Medicine progress note 04/18 Hypoxic Respiratory failure, postoperative, possible aspiration pneumonia 04/18 Gastric Emptying study: Findings compatible with delayed gastric emptying. Surgical Consult 04/17 The patient states he did have an emesis episode. Medicine Consult 04/19 Tolerating full liquid diet, with now nausea or emesis x 24 hours. Treatment: 04/17 04/19 7l High Flow oxygen, 04/18 to current Zoysn 3.375mg IVPB Q8H. What relationship, if any, exists between the diagnosis of Aspiration Pneumonia and the procedure: [ ] Aspiration Pneumonia is a complication of surgical procedure [ ] Aspiration Pneumonia is an expected outcome of the surgical procedure [ ] Aspiration Pneumonia is related to patients co-morbid condition(s) of delayed gastric emptying and emesis & not a complication of the procedure [ ] Other please specify ____ [ ] Unable to determine (Template Last Revised: July 2020) MTDD
[2021-04-19] MEDS: SODIUM CHLORIDE 0.9% 1,000 ML IV SCH ×2 (15:41→20:33)
[2021-04-19] MEDS: POTASSIUM CHLORIDE 20 MEQ in WATER FOR INJECTION 1 100ML.BAG IVPB SCH ×2 (15:41→17:38)
[2021-04-19] MEDS: MAGNESIUM OXIDE 400 MG TAB PO SCH (15:41)
[2021-04-19 16:55] LABS: Glucose,Whole Blood 131 mg/dL (75-99)
[2021-04-19] MEDS: PANTOPRAZOLE 40 MG TABLET PO SCH (17:30)
[2021-04-19 20:16] LABS: Glucose,Whole Blood 146 mg/dL (75-99)
[2021-04-19] MEDS: ATORVASTATIN 40 MG TAB PO SCH (20:30)
[2021-04-19] MEDS: TAMSULOSIN 0.4 MG CAP.ER.24H PO SCH (20:30)
[2021-04-19] MEDS: valACYclovir HCL 1,000 MG TABLET PO SCH (23:23)
[2021-04-20] MEDS: PIPERACILLIN-TAZOBACTAM 3.375 GM in SODIUM CHLORIDE 0.9% 100 ML IVPB SCH ×3 (01:31→17:42)
[2021-04-20 06:19] LABS: Glucose,Whole Blood 146 mg/dL (75-99)
[2021-04-20] MEDS: INSULIN ASPART (NovoLOG) 100 UNIT/ML VIAL SQ SCH ×4 (06:24→21:27)
[2021-04-20] MEDS: METOCLOPRAMIDE 5 MG/ML 2 ML VIAL IVP SCH ×4 (06:24→23:09)
[2021-04-20] MEDS: IPRATROPIUM-ALBUTEROL 3 ML NEB INHALATION SCH ×4 (08:06→20:32)
[2021-04-20 08:45] LABS: HCT 41.4 % (39.0-53.0); HGB 14.3 gm/dL (13.0-17.5); Hyperchromasia Slight; MCH 32.5 pg (25.0-35.0); MCHC 34.6 g/dL (31.0-37.0); MCV 93.9 fL (80.0-100.0); Mean Platelet Volume 7.4; Platelet Count 270 k/uL (150-450); Poikilocytosis Slight; RBC 4.41 m/uL (4.30-5.90); RDW 13.3 % (11.5-15.5); WBC 7.5 k/uL (3.8-10.6)
[2021-04-20 08:52] LABS: Potassium 3.2 mmol/L (3.5-5.1)
[2021-04-20] MEDS: SODIUM CHLORIDE 0.9% 1,000 ML in EMPTY BAG 1 BAG IV SCH ×3 (09:13→16:21)
[2021-04-20] MEDS: lisinopriL 20 MG TAB PO SCH (09:19)
[2021-04-20] MEDS: ASPIRIN 81 MG PO SCH (09:19)
[2021-04-20] MEDS: METOPROLOL TARTRATE 50 MG TAB PO SCH ×2 (09:20→21:30)
[2021-04-20] MEDS: amLODIPine 5 MG TAB PO SCH (09:20)
[2021-04-20] MEDS: FOLIC ACID-VIT B COMPLEX-VIT C 1 CAP PO SCH (09:20)
[2021-04-20] MEDS: SENNOSIDES-DOCUSATE SODIUM 1 EACH TAB PO SCH (09:20)
[2021-04-20] MEDS: OXYBUTYNIN XL 5 MG TAB.ER.24 PO SCH (09:20)
[2021-04-20] MEDS: LACTATED RINGERS 1,000 ML IV SCH (09:21)
[2021-04-20] MEDS ORDERED: BENZOCAINE/MENTHOL LOZENG 1 EACH LOZENGE MUCOUS MEM PRN (09:28)
--- NOTE | 2021-04-20 09:36 | P.PN ---
Progress Note - Text Progress Note Date: 04/20/21 Postoperative day #5 Patient is seen and examined today at bedside. The patient has some pain around the surgical site as expected. Pain is being controlled with medication. Overall he says his back is doing "fantastic". He feels his legs are doing well. He is done some ambulation around the room but yesterday had some hypoxia down to 91. He does not have any significant complaints about his back. He says he is moving well otherwise. He denies current shortness of breath. Denies chest pain. He says his stomach is doing well. He still has some trouble swallowing foods as he feels like it is sore through his throat as he swallows. He denies any nausea or vomiting. Physical Exam Afebrile with stable vital signs he is on nasal cannula Abdomen is soft nontender. The distention is also completely resolved Chest has good excursion deep and space expiration The incision site is clean dry and intact. No erythema there is no purulence. Incision sites are clear at his back. There is no drainage there is no evidence of any infection. Extremities have not had neurologic change from prior to surgery. He has sustained dorsiflexion plantar flexion and EHL intact Calves and thighs were soft nontender without evidence of DVT. Assessment/Plan Postoperative day #5 status post minimally invasive decompression and fusion for his lumbar spine for his severe spinal stenosis with low back pain and lower extremity radiculopathy Patient is progressing as expected in terms of his back and his lower extremities from the surgery. He has had a number of issues postoperatively which has slowed on his progress. His cardiac issues have been ruled out after his initial postoperative chest pain. I do not think that this was a direct result from surgery. He had a postoperative ileus which had significant contribution from his delayed. This partially due to the surgery and partially due to the comorbid condition of the delayed gastric emptying. He is getting some soft foods and starting to gradually progress his diet. He is not having any further nausea but is having some trouble with his swallowing and may have some benefit with some lozenges. He is continuing manage this with medicine and surgery service. We will yesterday he had some hypoxia. He was not having respiratory failure and does not seem to have evidence of aspiration pneumonia. I think this is likely due primarily to postoperative atelectasis due to his significant decrease activity postoperatively. He is continuing on supplemental oxygen and will be managed with pulmonary and medicine service. We will continue to increase the patient's mobilization with therapy. the patient may shower today and daily. From a spine standpoint of his procedure is okay for him to increase his mobilization and prepare for discharge when he has stable from medicine services. We will continue pain control with oral or IV medications. We'll continue to follow patient closely.
[2021-04-20] MEDS ORDERED: Potassium Replacement Protocol 1 EACH MISC MISCELLANE PRN ×2 (11:04→19:34)
[2021-04-20] MEDS ORDERED: Magnesium Replacement Protocol 1 EACH MISC MISCELLANE PRN ×2 (11:04→19:34)
[2021-04-20 12:11] LABS: Band Neutrophils % 3 %; Eosinophils # (M) 0.45 k/uL (0-0.7); Lymphocytes # (M) 0.75 k/uL (1.0-4.8); Neutrophils % (M) 65 %; Nucleated Red Blood Cells 0 /100 WBC (0-0); Total Cells Counted 100
[2021-04-20 12:13] LABS: Glucose,Whole Blood 142 mg/dL (75-99)
[2021-04-20 16:41] LABS: Glucose,Whole Blood 147 mg/dL (75-99)
[2021-04-20] MEDS: PANTOPRAZOLE 40 MG TABLET PO SCH (17:19)
[2021-04-20] MEDS: MAGNESIUM OXIDE 400 MG TAB PO SCH (17:19)
[2021-04-20] MEDS: SODIUM CHLORIDE 0.9% 1,000 ML IV SCH ×2 (17:42→23:10)
[2021-04-20 19:54] LABS: Glucose,Whole Blood 135 mg/dL (75-99)
--- NOTE | 2021-04-20 20:21 | XR ---
EXAMINATION TYPE: XR chest 1V portable DATE OF EXAM: 04/20/2021 COMPARISON: 04/17/2021 HISTORY: Short of breath TECHNIQUE: FINDINGS: There is no heart failure nor confluent pneumonic infiltrate. Costophrenic angles are clear. There ar e chest leads. IMPRESSION: No active cardiopulmonary disease. There is improved inspiration compared to last exam
[2021-04-20] MEDS: ATORVASTATIN 40 MG TAB PO SCH (21:30)
[2021-04-20] MEDS: POTASSIUM CHLORIDE ER 20 MEQ TAB.ER PO SCH ×2 (21:30→23:09)
[2021-04-20] MEDS: TAMSULOSIN 0.4 MG CAP.ER.24H PO SCH (21:30)
[2021-04-20] MEDS: valACYclovir HCL 1,000 MG TABLET PO SCH (21:31)
--- NOTE | 2021-04-20 22:17 | PN ---
PROGRESS NOTE I am covering for Dr. Tamayo. DATE OF SERVICE: 04/20/2021. This 70-year-old gentleman who was admitted after back surgery, laminectomy and decompression also had hypoxia secondary to possible atelectasis. Patient is being closely monitored. No chest pain. No palpitations. No fever. PHYSICAL EXAMINATION: Alert and oriented x3. Pulse 94, blood pressure 114/70, respiration 20, temperature 97.3, pulse ox 94% on 5 L. HEENT: Conjunctivae normal. NECK: No jugular venous distention. CARDIOVASCULAR: S1, S2 muffled. RESPIRATION: Breath sounds diminished at the bases. Scattered rhonchi. ABDOMEN: Soft, non-tender. LEGS: No edema. No swelling. NERVOUS SYSTEM: No focal deficit. LABS: Creatinine 1.3 and potassium 3.2. ASSESSMENT: 1. Status post laminectomy and decompression, L4-5. 2. Possible pneumonia. 3. Postoperative hypoxemia and possible atelectasis. 4. Hypokalemia. 5. Increased creatinine with acute renal failure. 6. Acute kidney injury. 7. History of coronary artery disease. 8. History of diabetes mellitus, type 2. 9. History of gastroesophageal reflux disease. 10.Hypertension. 11.Hyperlipidemia. 12.History of diet-controlled diabetes mellitus, type 2. 13.History of prostate disease. 14.Spinal stenosis. 15.History of skin cancer. 16.History of cardiac ablation. 17.History of coronary artery disease, stent. 18.History of nicotine dependence. 19.FULL CODE. RECOMMENDATIONS AND DISCUSSION: In this 70-year-old gentleman who presented with multiple medical issues, at this time I recommend to continue the current medications, continue with symptomatic treatment. Continue with the bronchodilators. Potassium supplementation. The patient is on broad- spectrum IV antibiotics. I recommend repeat labs and to closely follow with Pulmonary. Further recommendations to follow. I will repeat a chest x-ray also. The previous chest x-ray which I reviewed personally showed Further recommendations to follow. MMODL / IJN: [id number] / [facility]
[2021-04-21] MEDS: ONDANSETRON 4 MG/2 ML VIAL IVP PRN ×2 (02:44→09:52)
[2021-04-21] MEDS: FAMOTIDINE 20 MG TAB PO PRN (02:44)
[2021-04-21] MEDS: PIPERACILLIN-TAZOBACTAM 3.375 GM in SODIUM CHLORIDE 0.9% 100 ML IVPB SCH ×3 (02:46→17:04)
[2021-04-21 06:49] LABS: Glucose,Whole Blood 117 mg/dL (75-99)
[2021-04-21] MEDS: INSULIN ASPART (NovoLOG) 100 UNIT/ML VIAL SQ SCH ×4 (06:56→20:23)
[2021-04-21] MEDS: METOCLOPRAMIDE 5 MG/ML 2 ML VIAL IVP SCH ×4 (06:57→23:58)
[2021-04-21] MEDS: IPRATROPIUM-ALBUTEROL 3 ML NEB INHALATION SCH ×4 (07:25→20:52)
[2021-04-21 09:11] LABS: Basophils % (A) 0 %; Eosinophils # (A) 0.2 k/uL (0-0.7); Eosinophils % (A) 3 %; HCT 39.8 % (39.0-53.0); HGB 13.6 gm/dL (13.0-17.5); Hyperchromasia Slight; Lymphocytes # (A) 0.8 k/uL (1.0-4.8); Lymphocytes % (A) 9 %; MCH 32.4 pg (25.0-35.0); MCHC 34.2 g/dL (31.0-37.0); MCV 94.6 fL (80.0-100.0); Mean Platelet Volume 7.6; Monocytes # (A) 0.7 k/uL (0-1.0); Monocytes % (A) 8 %; Neutrophils # (A) 6.4 k/uL (1.3-7.7); Neutrophils % (A) 77 %; Platelet Count 278 k/uL (150-450); Poikilocytosis Slight; RDW 13.5 % (11.5-15.5); WBC 8.4 k/uL (3.8-10.6)
[2021-04-21 09:25] LABS: Calcium 7.9 mg/dL (8.4-10.2); Potassium 3.2 mmol/L (3.5-5.1)
[2021-04-21] MEDS: SENNOSIDES-DOCUSATE SODIUM 1 EACH TAB PO SCH (09:32)
[2021-04-21] MEDS: ASPIRIN 81 MG PO SCH (09:33)
[2021-04-21] MEDS: lisinopriL 20 MG TAB PO SCH (09:33)
[2021-04-21] MEDS: ERGOCALCIFEROL 1,250 MCG (50,000 IU) CAPSULE PO SCH (09:33)
[2021-04-21] MEDS: amLODIPine 5 MG TAB PO SCH (09:34)
[2021-04-21] MEDS: FOLIC ACID-VIT B COMPLEX-VIT C 1 CAP PO SCH (09:34)
[2021-04-21] MEDS: OXYBUTYNIN XL 5 MG TAB.ER.24 PO SCH (09:53)
[2021-04-21] MEDS: METOPROLOL TARTRATE 50 MG TAB PO SCH ×2 (09:53→18:44)
--- NOTE | 2021-04-21 10:23 | P.PN ---
Progress Note - Text Progress Note Date: 04/21/21 Postoperative day #6 Patient is seen and examined today at bedside. The patient has some pain around the surgical site as expected. Pain is being controlled with medication. He actually feels as though he is doing very well in terms of his back. His mobility is very good he is getting in and out of bed easily on his own. He says he is not eating. He has small amounts of food that he has pain through his esophagus and feels of spasm when he does this. Patient had an episode around 3:30 this morning he was having a bowel movement and had sudden spasms around his esophagus and vomited. He has not vomited since then this morning but is not able to eat as he feels it will be uncomfor table as he swallows Physical Exam Afebrile with stable vital signs. He is ambulatory and not requiring any supplemental oxygen Abdomen is soft nontender. There is no significant distention. His abdomen soft. Chest has good excursion deep and space expiration The incision site is clean dry and intact. No erythema there is no purulence. His back appears to be healing very well Extremities have not had neurologic change from prior to surgery. He has sustained dorsiflexion 5 flexion and EHL intact Calves and thighs were soft nontender without evidence of DVT. Assessment/Plan Postoperative day #6 status post minimally invasive decompression fusion for his spinal stenosis with lower extremity radiculopathy and degenerative disc disease Patient is progressing in terms of his back and his pain from the surgery appropriately. We will continue to increase the patient's mobilization with therapy. He is able to around his room quite easily and is not having significant pain in his back or his legs Remains on IV antibiotics prophylactically for his pulmonary status. He remains afebrile and is improving with his history status not requiring supplement autogenous point. He'll continue his pulmonary management as per pulmonary medicine service He had another significant episode of vomiting this morning having difficulty with tolerating his swallowing when he eats. Surgery had considered possibly of GI consult and I think that is appropriate we'll consult them for further evaluation and possible scope. I discussed this with patient and he understands and he is agreeable. We will continue pain control with oral medications. From a strictly spine surgery standpoint patient is okay for discharge when he is stable from the multiple medical services involved. We'll continue to follow patient closely.
[2021-04-21 11:39] LABS: Glucose,Whole Blood 124 mg/dL (75-99)
[2021-04-21 16:48] LABS: Glucose,Whole Blood 139 mg/dL (75-99)
[2021-04-21] MEDS: PANTOPRAZOLE 40 MG TABLET PO SCH (17:05)
[2021-04-21] MEDS: SODIUM CHLORIDE 0.9% 1,000 ML IV SCH (17:08)
[2021-04-21] MEDS: MAGNESIUM OXIDE 400 MG TAB PO SCH (17:08)
[2021-04-21] MEDS: ATORVASTATIN 40 MG TAB PO SCH (18:44)
[2021-04-21] MEDS: TAMSULOSIN 0.4 MG CAP.ER.24H PO SCH (18:44)
[2021-04-21 20:36] LABS: Glucose,Whole Blood 117 mg/dL (75-99)
--- NOTE | 2021-04-21 21:06 | PN ---
PROGRESS NOTE I am covering for Dr. Tamayo. DATE OF SERVICE: 04/21/2021 This 70-year-old gentleman who was admitted after laminectomy decompression also had some hypoxia pneumonia. Patient complained of abdominal distention. EGD is being planned by Dr. Osborne tomorrow. No chest pain. No palpitations. No fever. The most recent chest x-ray which was reviewed personally by me showed increased bronchovascular markings without any significant pneumonia. PHYSICAL EXAMINATION: Alert and oriented times three. Pulse 103. Blood pressure 110/54, respirations 18. Temperature 98.2, pulse ox 94% on room air. HEENT: Conjunctivae normal. Neck: No JVD. Cardiovascular: S1, S2 muffled. Respiratory System: Breath sounds diminished at the bases. A few scattered rhonchi. Abdomen: Soft, nontender. Legs are no edema. No swelling. Nervous system: No focal deficits. LABS: Sodium 140, potassium 3.4. ASSESSMENT: 1. Status post laminectomy decompression L4-5. 2. Possible pneumonia. 3. Postoperative hypoxia possible atelectasis. 4. Abdominal distention, possible acute gastritis. 5. Hypokalemia. 6. Increased creatinine with acute renal failure. 7. Acute kidney injury. 8. History of coronary artery disease. 9. Diabetes type 2. 10.Gastroesophageal reflux disease. 11.Hypertension. 12.Hyperlipidemia. 13.History of diet-controlled diabetes type 2. 14.History of prostate cancer. 15.Spinal stenosis. 16.Skin cancer. 17.History of cardiac ablation. 18.Coronary artery disease, stent. 19.History of nicotine dependence. 20.FULL CODE. RECOMMENDATIONS AND DISCUSSION: I recommend to continue current medications. Continue symptomatic treatment. Potassium supplementation. Repeat labs tomorrow. Otherwise, endoscopy by Dr. Osborne. Incentive spirometry. Further recommendations to follow. Further recommendations to follow. MMODL / IJN: [id number] /
[2021-04-21] MEDS: valACYclovir HCL 1,000 MG TABLET PO SCH (21:24)
[2021-04-22] MEDS: PIPERACILLIN-TAZOBACTAM 3.375 GM in SODIUM CHLORIDE 0.9% 100 ML IVPB SCH ×3 (01:47→17:27)
[2021-04-22] MEDS: SODIUM CHLORIDE 0.9% 1,000 ML IV SCH ×2 (04:31→17:28)
[2021-04-22] MEDS: INSULIN ASPART (NovoLOG) 100 UNIT/ML VIAL SQ SCH ×4 (06:29→20:21)
[2021-04-22 06:30] LABS: Glucose,Whole Blood 127 mg/dL (75-99)
[2021-04-22] MEDS: METOCLOPRAMIDE 5 MG/ML 2 ML VIAL IVP SCH ×3 (06:32→17:28)
[2021-04-22 06:54] LABS: Basophils % (A) 0 %; Eosinophils # (A) 0.2 k/uL (0-0.7); Eosinophils % (A) 1 %; HCT 41.1 % (39.0-53.0); HGB 14.2 gm/dL (13.0-17.5); Hyperchromasia Slight; Lymphocytes % (A) 6 %; MCH 32.4 pg (25.0-35.0); MCHC 34.7 g/dL (31.0-37.0); MCV 93.3 fL (80.0-100.0); Mean Platelet Volume 7.4; Monocytes # (A) 0.8 k/uL (0-1.0); Monocytes % (A) 5 %; Neutrophils # (A) 12.9 k/uL (1.3-7.7); Neutrophils % (A) 85 %; Platelet Count 326 k/uL (150-450); Poikilocytosis Slight; RDW 13.6 % (11.5-15.5); WBC 15.1 k/uL (3.8-10.6)
[2021-04-22 07:05] LABS: Calcium 8.4 mg/dL (8.4-10.2); Potassium 3.3 mmol/L (3.5-5.1)
[2021-04-22] MEDS: IPRATROPIUM-ALBUTEROL 3 ML NEB INHALATION SCH ×4 (07:52→21:23)
[2021-04-22] MEDS: POTASSIUM CHLORIDE ER 20 MEQ TAB.ER PO SCH (09:27)
[2021-04-22] MEDS: amLODIPine 5 MG TAB PO SCH (09:27)
[2021-04-22] MEDS: ASPIRIN 81 MG PO SCH (09:27)
[2021-04-22] MEDS: FOLIC ACID-VIT B COMPLEX-VIT C 1 CAP PO SCH (09:28)
[2021-04-22] MEDS: METOPROLOL TARTRATE 50 MG TAB PO SCH ×2 (09:28→21:12)
[2021-04-22] MEDS: lisinopriL 20 MG TAB PO SCH (09:28)
[2021-04-22] MEDS: OXYBUTYNIN XL 5 MG TAB.ER.24 PO SCH (09:28)
[2021-04-22] MEDS: SENNOSIDES-DOCUSATE SODIUM 1 EACH TAB PO SCH (09:28)
--- NOTE | 2021-04-22 11:37 | P.PN ---
Progress Note - Text Progress Note Date: 04/22/21 Orthopedic Spine History of present illness: Patient is a pleasant 70-year-old male who is seen and examined at the bedside following posterior lateral decompression and fusion performed last Thursday. In regards to his lumbar spine. He is not currently experiencing any low back pain at his surgical sites. He denies any lower extremity weakness or radiculopathy bilaterally. He states regards to his lumbar spine, he feels he could be disc harged home. He continues to have significant difficulty with his abdomen. He continues to vomit after eating. He is currently being seen and examined by Dr. Osborne general surgery who is planning for an upper scope this morning. He is able to ambulate throughout the room without significant difficulty. He is happy with this progress in regards to his lumbar spine. He seems to be seen and examined by medicine and has been seen by pulmonology as well. He has been on antibiotic medication prophylactically for his pulmonary status. He has remained afebrile. He has been able to discontinue his nasal cannula. He is voiding without difficulty. Currently does not complain of nausea, vomiting, fever, or chills. Patient states pain has been adequately controlled. Patient's medical history also includes heart disease, type 2 diabetes, hypertension, and hyperlipidemia. Physical Exam Lumbar Fusion: Status post surgical day number 7 Patient is awake, alert, and oriented 3 Vital signs stable Good chest excursion with deep inspiration and expiration Dorsiflexion, plantarflexion, and extensor hallucis longus positive sustained bilaterally No signs or symptoms of DVT; no calf pain; pneumatic cuffs not currently intact bilateral lower extremities Optifoam dressings are clean, dry, and intact over the lumbar spine and right iliac crest; no erythema, purulence, or signs of infection Dressings are removed during physical examination Surgical sites are clean, dry, and intact with no active drainage Neurovascularly intact bilaterally lower extremities Assessment: Status post L4-5 minimally invasive posterior lateral decompression and fusion with transforaminal lumbar interbody fusion Low back pain L4-5 facet cyst L4-5 severe spinal canal stenosis L4-5 spondylolisthesis Lower extremity radiculopathy with weakness Abdominal distention Delayed gastric emptying Multiple episodes of vomiting Shortness of breath after increased ambulation Heart disease Type 2 diabetes Hypertension Hyperlipidemia Plan: 1. Patient continues to improve in regards to his lumbar spine. He may continue to ambulate as tolerated; work with Physical Therapy to increase mobilization 2. Continue pain control with IV and oral medications; will plan to begin weaning the patient off of IV narcotic medication in anticipation for discharge home in the next 1-2 days 3. Dressings have been removed. Patient may shower without dressings intact at this time. 4. Medical management can continue to manage patient for patient's other medical diagnoses including heart disease, type 2 diabetes, hypertension, hyperlipidemia, and heartburn 5. Patient will continue be seen and examined by Dr. Osborne in general surgery for further treatment and evaluation in regards to abdominal distention and pain with delayed gastric emptying. Patient will plan to proceed forward with plan of care per his recommendations. They are currently planning for an upper scope this afternoon. 6. We will continue to follow the patient closely; depending on the patient's progress, we may plan for discharge home over the next 1-2 days once cleared by multiple medical providers including general surgery, medicine, and pulmonology. 7. Patient can follow-up with Pool Nathan PA-C or Dr. Joey Sidhu at [facility] in 2-3 weeks following discharge
[2021-04-22 11:56] LABS: Glucose,Whole Blood 117 mg/dL (75-99)
[2021-04-22] MEDS ORDERED: Magnesium Replacement Protocol 1 EACH MISC MISCELLANE PRN (16:06)
--- NOTE | 2021-04-22 16:17 | P.PN ---
Subjective Progress Note Date: 04/22/21 French Boudreaux is a 70 yo M with PMH of spinal stenosis, CAD, HTN, HLD who is admitted for lumbar decompression and laminectomy. He underwent this procedure yesterday with Dr. Sidhu and tolerated well. He does have some back pain today but denies leg pain or numbness. He complains of chest pain that feels like a band since last night. He denies shortness of breath, diaphoresis, chills. 04/17/2021 yesterday underwent cardiac catheterization reporting mild to moderate CAD, patent proximal LAD stent, 30-40% stenosis and 50% stenosis of the first OM, recommending maximizing medical therapy. Echo reported normal LV function, EF 55-60% with grade 1 diastolic dysfunction. Mild tachycardia, systolic blood pressures trending from 140s to 170s, maintaining O2 sats in the 90s on room air. Denies chest pain, palpitations or shortness of breath. Denies cough or congestion. Chest CTA reported negative for pulmonary embolism, massive distended stomach and esophagus with fluid extending into the esophagus, gastroparesis, possible gastric outlet obstruction.consuming 25-75% of diet .Reports nausea with 1 episode of vomiting this morning. Burping,no flatus, no BM. Evaluated by general surgery with recommendations noted and appreciated, discussing gastric emptying study. Voiding without difficulty, pain controlled Afebrile, T-max 99.1. Sodium 132, renal function stable, blood sugars currently controlled. 04/18/2021 Patient had a rough night,nausea,vomiting,hypertensive,tachycardic, hypoxia with bibasilar crackles, developed some flash pulmonary edema, received Lasix, beta nadine. Currently maintaining O2 sats in the 90s and 7 L high flow nasal cannula. Chest x-ray reported low lung volumes with no acute cardiopulmonary process, CTA suggested bilateral pleural thickening, atelectasis with possible infiltrates, no PE. Denies chest pain, palpitations or shortness of breath. Pro-calcitonin elevated, 3.11.Reports acid reflux with sour taste. Zosyn initiated. Abdomen distended, reports bowel movement this morning. Currently, in nuclear med for gastric emptying study. Afebrile, normal WBC. BMP pending. [id number] completed gastric emptying study yesterday, reporting no gastroeso phageal reflux, but compatible with delayed gastric emptying. Maintained on Reglan. Tolerating full liquid diet, with no nausea or emesis 24 hours. Belching, reports multiple loose bowel movements since receiving contrast. Maintaining O2 sats in the 90s on 7 L high flow nasal cannula. Nonproductive cough. Denies chest pain, palpitations. Telemetry sinus rhythm. Denies numbness or tingling. Labs pending. 04/22/2021 reported having significant esophageal spasms throughout the day yesterday. Reports mid-epigastric pain. NPO, EGD pending. Creatinine 1.24 .Ambulating, tolerating exertion well. Surgical Pain controlled. Afebrile, WBC increased 15.1. Potassium 3.3. blood sugars controlled. Maintaining O2 sats in the 90s on room air. Objective - Vital Signs Vital signs: Vital Signs Temp 97.9 F 04/22/21 11:50 Pulse 92 04/22/21 15:24 Resp 17 04/22/21 11:50 BP 127/77 04/22/21 11:50 Pulse Ox 93 L 04/22/21 11:50 Intake & Output 04/21/21 04/22/21 04/22/21 18:59 06:59 18:59 Intake Total 118 Output Total 300 Balance -182 Weight 94.3 kg Intake: Oral 118 Output: Urine 300 Other: Voiding Method Toilet Toilet - Exam General: Alert and oriented 3, Sitting up at side of bed, no acute distress. NAD. Vitals reviewed Eyes: PERRL, EOMI, conjunctiva normal HENT: normocephalic, mucus membranes dry Neck: supple, no JVD Lungs: normal respiratory effort, no rhonchi, wheezes, fine bibasilar rales CV: Regular rate and rhythm, no murmur. Peripheral pulses 2+ Abdomen: Soft, mildly distended,diffuse tenderness, no organomegaly, no guarding ,+BS Skin: warm and dry. Neuro: No focal deficits, strength and sensation grossly intact - Labs CBC & Chem 7: 04/22/21 06:36 04/22/21 06:36 Labs: Abnormal Lab Results - Last 24 Hours (Table) 04/21/21 04/21/21 04/22/21 Range/Units 16:46 20:12 06:27 WBC (3.8-10.6) k/uL Neutrophils # (1.3-7.7) k/uL Potassium (3.5-5.1) mmol/L Chloride (98-107) mmol/L BUN (9-20) mg/dL Glucose (74-99) mg/dL POC Glucose (mg/dL) 139 H 117 H 127 H (75-99) mg/dL 04/22/21 04/22/21 04/22/21 Range/Units 06:36 06:36 11:46 WBC 15.1 H (3.8-10.6) k/uL Neutrophils # 12.9 H (1.3-7.7) k/uL Potassium 3.3 L (3.5-5.1) mmol/L Chloride 110 H (98-107) mmol/L BUN 39 H (9-20) mg/dL Glucose 135 H (74-99) mg/dL POC Glucose (mg/dL) 117 H (75-99) mg/dL Assessment and Plan Assessment: Spinal stenosis s/p laminectomy and decompression Acute Hypoxic respiratory failure, postoperative ,possible aspiration pneumonia, Chest pain. Status post catheterization. Maximize medical therapy Ileus resolving,Delayed gastric emptying reported per gastric emptying study Acute renal failure Diabetes mellitus type 2, A1c 5 HTN Elevated d-dimer. CTA negative for PE Atelectasis Hyponatremia, resolving Leukocytosis, suspect reactive, expected, resolved Hypokalemia Plan: Continue on current medication regime ,monitoring and symptomatic treatment. Potassium supplementation as per replacement protocol previously ordered. Magnesium level ordered, replacement protocol as ordered. Gentle IV fluid hydration. EGD pending. Maintain aggressive pulmonary toileting with nebulized bronchodilators, Zosyn,with incentive spirometer reinforced. Pain management. The impression and plan of care has been dictated as directed. : I performed a history and examination of this patient, discussed the same with the dictator. I agree with the dictator's note ,documented as a scribe. Any additional findings or plans will be noted.
[2021-04-22] MEDS ORDERED: LIDOCAINE 1% INJ 10MG/ML (20 ML MDV) ONE (16:33)
[2021-04-22] MEDS ORDERED: PROPOFOL 10 MG/ML 20 ML VIAL IV ONE (16:33)
[2021-04-22] MEDS ORDERED: IV FLUID CONTINUATION 1,000 ML IV ONE (16:39)
[2021-04-22] MEDS: MAGNESIUM OXIDE 400 MG TAB PO SCH (16:44)
--- NOTE | 2021-04-22 16:56 | P.PCN ---
Date of Procedure: 04/22/21 Preoperative Diagnosis: Gastroparesis Nausea and vomiting Postoperative Diagnosis: Bile reflux Gastroparesis Gastritis Esophagitis Procedure(s) Performed: EGD with biopsy Anesthesia: MAC Surgeon: Carlos Osborne Pathology: other (Biopsies of esophagus, antrum, duodenum) Condition: stable Disposition: floor Indications for Procedure: 70-year-old male admitted after laminectomy with concerns of nausea, vomiting and gastroparesis. He is been treated with Reglan and did initially have some improvement, however began having nausea and vomiting episodes again. Imaging was also having a concern for possible gastric outlet obstruction. Plan is for upper endoscopy for further evaluation. Case was discussed with the patient's orthopedic physician today as well. Risks, benefits and alternatives were provided to the patient. He did provide consent prior to attending the endoscopy suite. Operative Findings: Significant inflammatory changes of the esophagus Gastritis and duodenitis Gastroparesis Description of Procedure: The patient was brought into the endoscopy suite and placed in left lateral decubitus position and adequate sedation was achieved using conscious sedation. A bite block was placed in an endoscope was placed in the oropharynx and advanced under endoscopic visualization. The endoscope was advanced through the esophagus and into the stomach. It was immediately evident that the stomach was full of bile. This was suctioned. The scope was then advanced through the gastric antrum and into the pylorus. The third portion of duodenum was visualized. A significant amount of bile was noted here as well. This was suctioned. The endoscope was then slowly withdrawn. The first portion duodenum was visualized and was noted to have mild inflammatory changes. Biopsies were taken. The antrum was noted to have a filter changes. Biopsies were taken. The gastric body distended normally and the gastric folds appeared normal and flattened with insufflation. A retroflexed view the fundus and GE junction revealed no significant hiatal hernia. The distal portion of the esophagus was noted to have significant inflammatory changes, likely secondary to the bile reflux. Esophagitis was noted and biopsies were taken. Excess air was removed and the scope was withdrawn and the procedure was completed. The patient was then sent to postanesthesia care unit in stable condition. Based on findings, we will begin the patient on IV PPI with Protonix. Patient will also begin oral Carafate. Continue Reglan.
[2021-04-22 17:23] LABS: Glucose,Whole Blood 117 mg/dL (75-99)
[2021-04-22] MEDS: SUCRALFATE 1 GM TAB PO SCH (17:28)
[2021-04-22 20:16] LABS: Glucose,Whole Blood 109 mg/dL (75-99)
[2021-04-22] MEDS: valACYclovir HCL 1,000 MG TABLET PO SCH (21:12)
[2021-04-22] MEDS: TAMSULOSIN 0.4 MG CAP.ER.24H PO SCH (21:12)
[2021-04-22] MEDS: ATORVASTATIN 40 MG TAB PO SCH (21:12)
[2021-04-22] MEDS: PANTOPRAZOLE 40 MG/10 ML VIAL IVP SCH (21:13)
[2021-04-23] MEDS: PIPERACILLIN-TAZOBACTAM 3.375 GM in SODIUM CHLORIDE 0.9% 100 ML IVPB SCH ×2 (00:44→11:23)
[2021-04-23] MEDS: METOCLOPRAMIDE 5 MG/ML 2 ML VIAL IVP SCH ×3 (00:44→11:23)
[2021-04-23 06:07] VITALS: RESP 16
[2021-04-23 06:25] LABS: Glucose,Whole Blood 119 mg/dL (75-99)
[2021-04-23] MEDS: INSULIN ASPART (NovoLOG) 100 UNIT/ML VIAL SQ SCH ×2 (06:26→13:53)
[2021-04-23] MEDS: SODIUM CHLORIDE 0.9% 1,000 ML IV SCH (06:52)
[2021-04-23] MEDS: SUCRALFATE 1 GM TAB PO SCH ×2 (06:52→11:23)
[2021-04-23] MEDS: IPRATROPIUM-ALBUTEROL 3 ML NEB INHALATION SCH ×2 (07:23→11:27)
[2021-04-23 07:55] LABS: Basophils % (A) 0 %; Eosinophils # (A) 0.2 k/uL (0-0.7); Eosinophils % (A) 2 %; HCT 39.3 % (39.0-53.0); HGB 13.4 gm/dL (13.0-17.5); Hyperchromasia Slight; Lymphocytes # (A) 1.1 k/uL (1.0-4.8); Lymphocytes % (A) 8 %; MCH 32.1 pg (25.0-35.0); MCV 94.5 fL (80.0-100.0); Mean Platelet Volume 7.4; Monocytes # (A) 0.5 k/uL (0-1.0); Monocytes % (A) 4 %; Neutrophils # (A) 12.8 k/uL (1.3-7.7); Neutrophils % (A) 86 %; Platelet Count 368 k/uL (150-450); Poikilocytosis Slight; RBC 4.15 m/uL (4.30-5.90); RDW 13.7 % (11.5-15.5)
[2021-04-23 08:21] LABS: Calcium 8.3 mg/dL (8.4-10.2); Magnesium 2.6 mg/dL (1.6-2.3); Potassium 3.5 mmol/L (3.5-5.1)
[2021-04-23] MEDS: PANTOPRAZOLE 40 MG/10 ML VIAL IVP SCH (09:30)
[2021-04-23] MEDS: SENNOSIDES-DOCUSATE SODIUM 1 EACH TAB PO SCH (09:31)
[2021-04-23] MEDS: lisinopriL 20 MG TAB PO SCH (09:31)
[2021-04-23] MEDS: FOLIC ACID-VIT B COMPLEX-VIT C 1 CAP PO SCH (09:31)
[2021-04-23] MEDS: amLODIPine 5 MG TAB PO SCH (09:31)
[2021-04-23] MEDS: METOPROLOL TARTRATE 50 MG TAB PO SCH (09:32)
[2021-04-23] MEDS: ASPIRIN 81 MG PO SCH (09:32)
[2021-04-23] MEDS: OXYBUTYNIN XL 5 MG TAB.ER.24 PO SCH (09:32)
[2021-04-23 11:53] LABS: Glucose,Whole Blood 116 mg/dL (75-99)
[2021-04-23 12:03] VITALS: PULSE 88; TEMP 98.1
[2021-04-23 12:07] VITALS: BP 149/77
--- NOTE | 2021-04-23 12:36 | P.DS ---
Providers Date of admission: 04/17/21 09:56 Expected date of discharge: 04/23/21 Attending physician: Nacho Sidhu Consults: 04/15/21 11:06 Consult Physician Routine Consulting Provider: Hunter Tamayo Consult Reason/Comments: Medical management Do you want consulting provider notified?: Yes 04/16/21 10:03 Consult Physician Routine Consulting Provider: Feroz Diehl Consult Reason/Comments: new Chest Pain Do you want consulting provider notified?: Yes 04/16/21 14:41 Consult Physician Routine Consulting Provider: Carlos Osborne Consult Reason/Comments: POD#1,abn CTA, poss gastric outlet obstr Do you want consulting provider notified?: Yes 04/18/21 07:57 Consult Physician Routine Consulting Provider: Sergei Tay Consult Reason/Comments: hypoxia,post-op Do you want consulting provider notified?: Yes Primary care physician: Hunter Tamayo MD - Discharge Diagnosis(es) (1) Lumbar spinal stenosis Current Visit: Yes Status: Acute (2) Lumbar back pain with radiculopathy affecting lower extremity Current Visit: Yes Status: Acute (3) Lower extremity weakness Current Visit: Yes Status: Acute (4) Spondylolisthesis at L4-L5 level Current Visit: Yes Status: Acute (5) Synovial cyst of lumbar facet joint Current Visit: Yes Status: Acute (6) Heart disease Current Visit: Yes Status: Acute (7) Type 2 diabetes mellitus Current Visit: Yes Status: Acute (8) Hypertension Current Visit: Yes Status: Acute (9) Hyperlipidemia Current Visit: Yes Status: Acute (10) Bile reflux esophagitis Current Visit: Yes Status: Acute (11) Bile reflux gastritis Current Visit: Yes Status: Acute (12) Gastroparesis Current Visit: Yes Status: Acute Hospital Course: This is a pleasant 70-year-old male who presented with L4-5 severe spinal canal stenosis, facet cyst, spondylolisthesis, lower extremity radiculopathy with weakness, and low back pain who failed outpatient conservative therapy. He was admitted for L4-5 minimally invasive posterior lateral decompression and fusion with transforaminal lumbar interbody fusion. In regards to his lumbar spine, he has improved significantly postoperatively. He is not currently experiencing any low back pain or lower extremity radiculopathy or weakness bilaterally. He has been able to ambulate the halls and to the restroom without difficulty. Postoperatively he was having significant discomfort and difficulty with abdominal distention with massively distended stomach esophagus. He has been being seen and examined by general surgery. He underwent EGD with biopsy y esterday for bile reflux, gastroparesis, esophagitis, gastritis. Since that time he feels significantly better. He was able to eat breakfast without difficulty this morning. Patient has been seen again by medicine who was clearing the patient for discharge. Patient feels he is ready for discharge home today. We did discuss he is clear for discharge from an orthopedic spine standpoint. He would need clearance by general surgery in addition to medicine prior to his discharge home. During his admission to the hospital he is been seen by pulmonology and was on prophylactic antibiotic medication for ammonia. He has completed his antibiotic regimen. Medicine does not feel he needs antibiotics at discharge. He does not need further evaluation by pulmonology. We did discuss we will clear him for discharge pending clearance by the medical providers. Condition on day of discharge stable. Patient will be discharged home. Patient was cleared preoperatively for surgery by Dr. Tamayo. Patient currently denies any nausea, vomiting, fever, or chills. Patient is eating and voiding freely without difficulty. Patient may shower without a dressing at that time. Avoid excessive lumbar flexion, extension, rotation, and side bending. Avoid excessive activities. No lifting greater than 10 pounds. Patient should avoid driving until at least her next follow-up appointment. MAPS has been reviewed today, 04/23/2021, with an Overall Overdose Risk Score of . An "Opiod Start Talking" Form has been signed and placed in the patient's chart. A prescription has been written for Leslie 5 mg/325 mg 1 tab every 6 hours as needed for pain, dispense #28. Patient should avoid anti-inflammatory medications over the next 6 weeks postoperatively. Patient given a prescription for baclofen 10 mg 1 tab 3 times a day as needed for muscle spasm, dispensed #60. We did discuss with plan for general surgery to prescribe medications at their discretion at discharge. Patient's other medical diagnoses include heart disease, type 2 diabetes, hypertension, hyperlipidemia. Physical Exam on day of discharge: Status post surgical day number 8 Patient is awake, alert, and oriented 3 Vital signs stable No significant abdominal distention Good chest excursion with deep inspiration and expiration Dorsiflexion, plantarflexion, and extensor hallucis longus positive sustained bilaterally No signs or symptoms of DVT; no calf pain; pneumatic cuffs not currently intact bilateral lower extremities Surgical sites are clean, dry, and intact with no active drainage Some slight bruising on the left lateral portion of the left surgical incision site Neurovascularly intact bilaterally lower extremities Procedures: L4-5 minimally invasive posterior lateral decompression and fusion with transforaminal lumbar interbody fusion Patient Condition at Discharge: Stable Plan - Discharge Summary Discharge Rx Participant: Yes New Discharge Prescriptions: New Sucralfate [Carafate] 1 gm PO AC-TID #90 tab Metoprolol Tartrate [Lopressor] 50 mg PO BID #60 tab Pantoprazole Sodium [Protonix] 40 mg PO BID #60 tab Pantoprazole [Protonix] 40 mg PO DAILY #30 tab HYDROcodone/APAP 5-325MG [Leslie 5] 1 each PO Q6HR PRN #28 tab PRN Reason: Pain Metoclopramide [Reglan] 10 mg PO ACHS #120 tab Sennosides-Docusate Sodium [Senokot-S] 1 each PO DAILY tab Baclofen 10 mg PO TID PRN #60 tab PRN Reason: Spasms Continue Atorvastatin [Lipitor] 40 mg PO HS Alfuzosin HCl [Uroxatral ER] 10 mg PO HS valACYclovir HCL [Valacyclovir] 1,000 mg PO HS Tolterodine [Detrol] 2 mg PO QAM Vitamin B Complex 1 each PO DAILY Ubidecarenone [Co Q-10] 400 mg PO DAILY Ergocalciferol [Vitamin D2 (DRISDOL)] 50,000 units PO SUWE Cinnamon Bark [Cinnamon] 2,000 mg PO DAILY Alpha Lipoic Acid. 600 mg PO DAILY Magnesium Oxide 400 mg PO 1500 amLODIPine BESYLATE/BENAZEPRIL [Lotrel 5-40 MG] 1 cap PO QAM Aspirin [Adult Low Dose Aspirin EC] 81 mg PO DAILY Discontinued Metoprolol Tartrate [Lopressor] 12.5 mg PO BID Discharge Medication List Alfuzosin HCl [Uroxatral ER] 10 mg PO HS 03/29/14 [History] Atorvastatin [Lipitor] 40 mg PO HS 03/29/14 [History] valACYclovir HCL [Valacyclovir] 1,000 mg PO HS 03/29/14 [History] Alpha Lipoic Acid. 600 mg PO DAILY 02/02/19 [History] Cinnamon Bark [Cinnamon] 2,000 mg PO DAILY 02/02/19 [History] Ergocalciferol [Vitamin D2 (DRISDOL)] 50,000 units PO SUWE 02/02/19 [History] Tolterodine [Detrol] 2 mg PO QAM 02/02/19 [History] Ubidecarenone [Co Q-10] 400 mg PO DAILY 02/02/19 [History] Vitamin B Complex 1 each PO DAILY 02/02/19 [History] amLODIPine BESYLATE/BENAZEPRIL [Lotrel 5-40 MG] 1 cap PO QAM 10/25/20 [History] Aspirin [Adult Low Dose Aspirin EC] 81 mg PO DAILY 01/28/21 [History] Magnesium Oxide 400 mg PO 1500 01/28/21 [History] Baclofen 10 mg PO TID PRN #60 tab 04/23/21 [Rx] HYDROcodone/APAP 5-325MG [Leslie 5] 1 each PO Q6HR PRN #28 tab 04/23/21 [Rx] Metoclopramide [Reglan] 10 mg PO ACHS #120 tab 04/23/21 [Rx] Metoprolol Tartrate [Lopressor] 50 mg PO BID #60 tab 04/23/21 [Rx] Pantoprazole Sodium [Protonix] 40 mg PO BID #60 tab 04/23/21 [Rx] Pantoprazole [Protonix] 40 mg PO DAILY #30 tab 04/23/21 [Rx] Sennosides-Docusate Sodium [Senokot-S] 1 each PO DAILY tab 04/23/21 [Rx] Sucralfate [Carafate] 1 gm PO AC-TID #90 tab 04/23/21 [Rx] Follow up Appointment(s)/Referral(s): Hunter Tamayo MD [Primary Care Provider] - 1 Week Pool Nathan PAC [PHYSICIAN [employer]] - 2 Weeks (Patient may follow-up with Pool Nathan PA-C or Dr. Joey Sidhu at [facility] in 2-3 weeks following discharge. ) Isaiah Mukherjee MD [STAFF PHYSICIAN] - 1 Week Ambulatory/Diagnostic Orders: Complete Blood Count w/diff [LAB.AMB] Time Frame: 3 Days, Location: None Selected Activity/Diet/Wound Care/Special Instructions: 1. Patient may shower without Optifoam dressing intact. 2. Patient should refrain from driving until at least after their first follow- up appointment in the office. 3. Patient should avoid excessive bending, twisting, lifting; avoid overhead lifting; no lifting greater than 10 pounds 4. Take medications as prescribed 5. Do not soak in tub Discharge Disposition: HOME SELF-CARE
--- NOTE | 2021-04-23 12:59 | P.PN ---
Subjective Progress Note Date: 04/23/21 French Boudreaux is a 70 yo M with PMH of spinal stenosis, CAD, HTN, HLD who is admitted for lumbar decompression and laminectomy. He underwent this procedure yesterday with Dr. Sidhu and tolerated well. He does have some back pain today but denies leg pain or numbness. He complains of chest pain that feels like a band since last night. He denies shortness of breath, diaphoresis, chills. 04/17/2021 yesterday underwent cardiac catheterization reporting mild to moderate CAD, patent proximal LAD stent, 30-40% stenosis and 50% stenosis of the first OM, recommending maximizing medical therapy. Echo reported normal LV function, EF 55-60% with grade 1 diastolic dysfunction. Mild tachycardia, systolic blood pressures trending from 140s to 170s, maintaining O2 sats in the 90s on room air. Denies chest pain, palpitations or shortness of breath. Denies cough or congestion. Chest CTA reported negative for pulmonary embolism, massive distended stomach and esophagus with fluid extending into the esophagus, gastroparesis, possible gastric outlet obstruction.consuming 25-75% of diet .Reports nausea with 1 episode of vomiting this morning. Burping,no flatus, no BM. Evaluated by general surgery with recommendations noted and appreciated, discussing gastric emptying study. Voiding without difficulty, pain controlled Afebrile, T-max 99.1. Sodium 132, renal function stable, blood sugars currently controlled. 04/18/2021 Patient had a rough night,nausea,vomiting,hypertensive,tachycardic, hypoxia with bibasilar crackles, developed some flash pulmonary edema, received Lasix, beta nadine. Currently maintaining O2 sats in the 90s and 7 L high flow nasal cannula. Chest x-ray reported low lung volumes with no acute cardiopulmonary process, CTA suggested bilateral pleural thickening, atelectasis with possible infiltrates, no PE. Denies chest pain, palpitations or shortness of breath. Pro-calcitonin elevated, 3.11.Reports acid reflux with sour taste. Zosyn initiated. Abdomen distended, reports bowel movement this morning. Currently, in nuclear med for gastric emptying study. Afebrile, normal WBC. BMP pending. [id number] completed gastric emptying study yesterday, reporting no gastroeso phageal reflux, but compatible with delayed gastric emptying. Maintained on Reglan. Tolerating full liquid diet, with no nausea or emesis 24 hours. Belching, reports multiple loose bowel movements since receiving contrast. Maintaining O2 sats in the 90s on 7 L high flow nasal cannula. Nonproductive cough. Denies chest pain, palpitations. Telemetry sinus rhythm. Denies numbness or tingling. Labs pending. 04/22/2021 reported having significant esophageal spasms throughout the day yesterday. Reports mid-epigastric pain. NPO, EGD pending. Creatinine 1.24 .Ambulating, tolerating exertion well. Surgical Pain controlled. Afebrile, WBC increased 15.1. Potassium 3.3. blood sugars controlled. Maintaining O2 sats in the 90s on room air. 04/23/2021 completed EGD with biopsy yesterday ,reporting bilateral reflux, gastroparesis, gastritis, duodenitis esophagitis-significant inflammatory changes of the esophagus. Carafate added to the regimen ,Protonix increased twice a day, in addition to Reglan. Significant clinical improvement. Tolerating solid diet with no nausea vomiting or diarrhea. Denies bloating reports occasional hiccups. Denies abdominal pain. Has completed IV antibiotic therapy for aspiration pneumonia. Afebrile. Occasional cough. Maintaining O2 sats in the 90s on room air Blood sugars controlled. Ambulating tolerating exertion well. Denies chest pain, palpitations or shortness of breath. Objective - Vital Signs Vital signs: Vital Signs Temp 98.1 F 04/23/21 08:00 Pulse 88 04/23/21 12:00 Resp 16 04/23/21 12:00 BP 149/77 04/23/21 12:00 Pulse Ox 93 L 04/23/21 12:00 Intake & Output 04/22/21 04/23/21 04/23/21 18:59 06:59 18:59 Intake Total 730 10 240 Balance 730 10 240 Weight 93.2 kg Intake: IV 150 10 Invasive Line 2 10 Sodium Chloride 0.9% 1, 100 000 ml @ 75 mls/hr IV . [id number] [facility] Rx#:[id number] Oral 580 240 Other: Voiding Method Toilet - Exam General: Alert and oriented 3, Sitting up at side of bed, no acute distress. NAD. Vitals reviewed. Eyes: PERRL, EOMI, conjunctiva normal. HENT: normocephalic, mucus membranes dry Neck: supple, no JVD Lungs: normal respiratory effort, no rhonchi, wheezes, fine bibasilar rales CV: Regular rate and rhythm, no murmur. Peripheral pulses 2+ Abdomen: Soft, mildly distended,diffuse tenderness, no organomegaly, no guarding ,+BS Skin: warm and dry. Neuro: No focal deficits, strength and sensation grossly intact - Labs CBC & Chem 7: 04/23/21 07:08 04/23/21 07:08 Labs: Abnormal Lab Results - Last 24 Hours (Table) 04/22/21 04/22/21 04/22/21 Range/Units 06:36 17:21 20:15 WBC (3.8-10.6) k/uL RBC (4.30-5.90) m/uL Neutrophils # (1.3-7.7) k/uL Chloride (98-107) mmol/L BUN (9-20) mg/dL Glucose (74-99) mg/dL POC Glucose (mg/dL) 117 H 109 H (75-99) mg/dL Calcium (8.4-10.2) mg/dL Magnesium 2.9 H (1.6-2.3) mg/dL 04/23/21 04/23/21 04/23/21 Range/Units 06:24 07:08 07:08 WBC 15.0 H (3.8-10.6) k/uL RBC 4.15 L (4.30-5.90) m/uL Neutrophils # 12.8 H (1.3-7.7) k/uL Chloride 110 H (98-107) mmol/L BUN 34 H (9-20) mg/dL Glucose 127 H (74-99) mg/dL POC Glucose (mg/dL) 119 H (75-99) mg/dL Calcium 8.3 L (8.4-10.2) mg/dL Magnesium 2.6 H (1.6-2.3) mg/dL 04/23/21 Range/Units 11:51 WBC (3.8-10.6) k/uL RBC (4.30-5.90) m/uL Neutrophils # (1.3-7.7) k/uL Chloride (98-107) mmol/L BUN (9-20) mg/dL Glucose (74-99) mg/dL POC Glucose (mg/dL) 116 H (75-99) mg/dL Calcium (8.4-10.2) mg/dL Magnesium (1.6-2.3) mg/dL Assessment and Plan Assessment: Spinal stenosis s/p laminectomy and decompression Acute Hypoxic respiratory failure, postoperative ,possible aspiration pneumonia, Chest pain. Status post catheterization. Maximize medical therapy Ileus resolving,Delayed gastric emptying reported per gastric emptying study. Status post EGD with biopsy, report a significant inflammatory changes of the esophagus, gastritis and duodenitis, gastroparesis. Biopsy results pending. Acute renal failure Diabetes mellitus type 2, A1c 5 HTN Elevated d-dimer. CTA negative for PE Atelectasis Hyponatremia, resolving Leukocytosis, suspect reactive, expected Hypokalemia,WNL Plan: Continue on current medication regime ,monitoring and symptomatic treatment. Completed IV antibiotic therapy for aspiration pneumonia. Discharge planning in progress as per primary/orthopedic spine surgery. Patient to continue on Reglan, Carafate, Protonix and follow-up with GI outpatient as advised. Patient has been instructed to maintain aggressive pulmonary toileting, incentive spirometer reinforced for discharge. Patient to follow-up with PCP in 1 week. The impression and plan of care has been dictated as directed. : I performed a history and examination of this patient, discussed the same with the dictator. I agree with the dictator's note ,documented as a scribe. Any additional findings or plans will be noted.
[2021-04-23] MEDS: MAGNESIUM OXIDE 400 MG TAB PO SCH (14:38)
--- NOTE | 2021-04-26 10:16 | CDI ---
Documentation Clarification Form Date: 04/26/21 From: Samantha Mendieta Admit Date: 04/17/2021 09:56:00 AM Patient Name: French Boudreaux Visit Number: [id number] Discharge Date: 04/23/2021 03:18:00 PM ATTENTION: The Clinical Documentation Specialists (CDI) and [facility] Coding Staff appreciate your assistance in clarifying documentation. Please respond to the clarification below the line at the bottom and electronically sign. The CDI & [facility] Coding staff will review the response and follow-up if needed. Please note: Queries are made part of the Legal Health Record. If you have any questions, please contact the author of this message via ITS. Dr. Hunter Tamayo, Your patient has flash pulmonary edema per 04/18, 04/19 /04/22 & 04[address] Tamayo.. Based on this information and the findings below, is there an additional diagnosis that is clinically appropriate for this patient? Patient history/risk factors: CAD, atelectasis, diabetic gastroparesis, s/p lumbar surgery this admit Clinical Indicators: Patient had a rough night, nausea, vomiting, hypertensive, tachycardic, hypoxia with bibasilar crackles, developed some flash pulmonary edema. Echo: Overall left ventricular systolic function is normal with, an EF between 55 - 60 %.Normal LAP.Grade 1 Diastolic Dysfunction. BNP: none Treatment: Received Lasix, beta nadine. Currently maintaining O2 sats in the 90s and 7 L high flow nasal cannula. Is there an additional diagnosis that is clinically appropriate for this patient? [ ] Acute diastolic CHF [ ] Acute pulmonary edema [ ] Other, please specify [ ] Unable to determine Acute diastolic CHF MTDD
== END 2021-04-23 15:18 | disposition home or self-care (01) | DRG 981 ==
LOC: OR 06:16 → 5NMEDONC 11:05 → OR 04-16 15:20 → 3SCARD 04-16 16:25 → OBSVTOIN 04-17 09:56
PROVIDERS: ADMIT Orthopaedic Surgery Orthopaedic Surgery of the Spine; ATTEND Orthopaedic Surgery Orthopaedic Surgery of the Spine
PROC: 01NB0ZZ Release Lumbar Nerve, Open Approach (ICD-10-PCS; principal; 2021-04-15 07:30)
PROC: 4A11X4G Monitoring of Peripheral Nervous Electrical Activity, Intraoperative, External Approach (ICD-10-PCS; principal; 2021-04-15 07:30)
PROC: 0MBD0ZZ Excision of Lower Spine Bursa and Ligament, Open Approach (ICD-10-PCS; principal; 2021-04-15 07:30)
PROC: 0ST20ZZ Resection of Lumbar Vertebral Disc, Open Approach (ICD-10-PCS; principal; 2021-04-15 07:30)
PROC: 0SG0071 Fusion of Lumbar Vertebral Joint with Autologous Tissue Substitute, Posterior Approach, Posterior Column, Open Approach (ICD-10-PCS; principal; 2021-04-15 07:30)
PROC: 0SG00AJ Fusion of Lumbar Vertebral Joint with Interbody Fusion Device, Posterior Approach, Anterior Column, Open Approach (ICD-10-PCS; principal; 2021-04-15 07:30)
PROC: 4A023N7 Measurement of Cardiac Sampling and Pressure, Left Heart, Percutaneous Approach (ICD-10-PCS; 2021-04-16)
PROC: B2111ZZ Fluoroscopy of Multiple Coronary Arteries using Low Osmolar Contrast (ICD-10-PCS; 2021-04-16)
PROC: 5A0935A Assistance with Respiratory Ventilation, Less than 24 Consecutive Hours, High Flow/Velocity Cannula (ICD-10-PCS; 2021-04-18)
PROC: 0DB38ZX Excision of Lower Esophagus, Via Natural or Artificial Opening Endoscopic, Diagnostic (ICD-10-PCS; 2021-04-22)
PROC: 0DB78ZX Excision of Stomach, Pylorus, Via Natural or Artificial Opening Endoscopic, Diagnostic (ICD-10-PCS; 2021-04-22)
PROC: 0DB98ZX Excision of Duodenum, Via Natural or Artificial Opening Endoscopic, Diagnostic (ICD-10-PCS; 2021-04-22)
DX: K56.7 Ileus, unspecified (principal); I50.31 Acute diastolic (congestive) heart failure; J98.11 Atelectasis; N17.9 Acute kidney failure, unspecified; E87.1 Hypo-osmolality and hyponatremia; J95.89 Other postprocedural complications and disorders of respiratory system, not elsewhere classified; E11.43 Type 2 diabetes mellitus with diabetic autonomic (poly)neuropathy; K31.84 Gastroparesis; E78.5 Hyperlipidemia, unspecified; D72.829 Elevated white blood cell count, unspecified; Z20.822 Contact with and (suspected) exposure to COVID-19; M47.26 Other spondylosis with radiculopathy, lumbar region; M48.061 Spinal stenosis, lumbar region without neurogenic claudication; M43.16 Spondylolisthesis, lumbar region; M51.16 Intervertebral disc disorders with radiculopathy, lumbar region; M71.38 Other bursal cyst, other site; M16.0 Bilateral primary osteoarthritis of hip; K21.00 Gastro-esophageal reflux disease with esophagitis, without bleeding; K29.60 Other gastritis without bleeding; K29.80 Duodenitis without bleeding; K22.4 Dyskinesia of esophagus; M79.652 Pain in left thigh; E87.6 Hypokalemia; I25.2 Old myocardial infarction; F43.9 Reaction to severe stress, unspecified; I10 Essential (primary) hypertension; I45.10 Unspecified right bundle-branch block; I08.0 Rheumatic disorders of both mitral and aortic valves; K30 Functional dyspepsia; I25.10 Atherosclerotic heart disease of native coronary artery without angina pectoris; H91.90 Unspecified hearing loss, unspecified ear; I83.90 Asymptomatic varicose veins of unspecified lower extremity; Z79.82 Long term (current) use of aspirin; Z79.899 Other long term (current) drug therapy; Z95.5 Presence of coronary angioplasty implant and graft; Z87.891 Personal history of nicotine dependence; Z85.828 Personal history of other malignant neoplasm of skin; Z85.46 Personal history of malignant neoplasm of prostate; Z87.39 Personal history of other diseases of the musculoskeletal system and connective tissue; Z86.79 Personal history of other diseases of the circulatory system; Z98.890 Other specified postprocedural states; Z88.8 Allergy status to other drugs, medicaments and biological substances; Z82.49 Family history of ischemic heart disease and other diseases of the circulatory system
CPT/HCPCS: 43239; 71045; 71275; 72100; 78264; 80048; 80053; 80061; 81003; 83036; 83735; 84145; 84484; 85025; 85379; 85610; 85730; 86850; 86900; 86901; 87070; 87635; 88305; 93005; 93306; 93458; 94640; 94760

== ENCOUNTER → 2022-08-27 | Outpatient (CLI) | payer MEDICARE, OTHER ==
--- NOTE | 2022-08-27 16:06 | MR ---
EXAMINATION TYPE: MR lumbar spine wo/w con DATE OF EXAM: 08/27/2022 COMPARISON: None HISTORY: Numbness and pain in feet. Hx surgery Apr 2021. CONTRAST: 10 mL intravenous Gadavist. TECHNIQUE: Multiplanar, multisequence images of the lumbar spine were acquired. FINDINGS: Cord terminates at the L1 level. L4 and L5 pedicle screws are present. There is susceptibi lity artifact at the L4-5 level. L5-S1: No significant disc bulge or disc herniation. No spinal canal stenosis. No foraminal stenosi s. Facet hypertrophy is present. L4-L5: There is limitation to this level due to beam hardening artifact. Obvious stenosis is not iden tified. Some foraminal narrowing is not excluded. L3-L4: No significant disc bulge or disc herniation. No spinal canal stenosis. No foraminal stenosi s. Facet hypertrophy and ligamentum flavum laxity is present. This is posterior lateral thecal sac co mpression. L2-L3: No significant disc bulge or disc herniation. No spinal canal stenosis. No foraminal stenosi s. Some facet hypertrophy is present without thecal sac compression.. L1-L2: No significant disc bulge or disc herniation. No spinal canal stenosis. No foraminal stenosi s. Mild facet hypertrophy is present without thecal sac compression. T12-L1: No significant disc bulge or disc herniation. No spinal canal stenosis. No foraminal stenos is. Neural foramen are patent.. No abnormal enhancement. IMPRESSION: 1. Facet hypertrophy and ligamentum flavum laxity has some posterior lateral thecal sac compression L 3-4. No obvious stenosis. 2. Postsurgical changes L4-5 limits evaluation through this level. No obvious stenosis evident
== END | disposition home or self-care (01) ==
LOC: RADMRIMAIN 11:26
PROVIDERS: ATTEND Physician Assistant Medical
DX: M47.816 Spondylosis without myelopathy or radiculopathy, lumbar region (principal)
CPT/HCPCS: 72158; A9585

== ENCOUNTER → 2022-11-29 | Outpatient (CLI) | payer MEDICARE, OTHER | END | disposition home or self-care (01) | LOC: LABWHC1 10:48 | PROVIDERS: ATTEND Psychiatry & Neurology Neurology | DX: G62.9 Polyneuropathy, unspecified (principal); Z79.899 Other long term (current) drug therapy | CPT/HCPCS: 36415; 82607 ==

== ENCOUNTER 2024-05-20 07:41 | Day surgery (SDC) | payer MEDICARE, OTHER ==
[2024-05-19 09:22] VITALS: BMI 28.8
[2024-05-20] MEDS: IV FLUID CONTINUATION 1,000 ML IV ONE (08:12)
[2024-05-20 08:18] VITALS: TEMP 97
[2024-05-20] MEDS: LACTATED RINGERS 1,000 ML IV SCH (08:31)
[2024-05-20 08:36] LABS: Glucose,Whole Blood 108 mg/dL (70-110)
[2024-05-20] MEDS: hydrALAZINE HCL 20 MG/ML 1 ML VIAL IVP STA (08:43)
[2024-05-20] MEDS ORDERED: PROPOFOL 10 MG/ML 20 ML VIAL IV ONE (08:51)
--- NOTE | 2024-05-20 09:09 | P.PCN ---
Date of Procedure: 05/20/24 Procedure(s) Performed: BRIEF HISTORY: Patient is a 73-year-old pleasant white male scheduled for an elective colonoscopy as a part of evaluation of prior history of colon polyps. His last colonoscopy was 5 years ago. PROCEDURE PERFORMED: Colonoscopy. PREOPERATIVE DIAGNOSIS: History of colon polyps. IV sedation per Anesthesia. PROCEDURE: After informed consent was obtained, the patient, was brought into the endoscopy unit. IV sedation was administered by Anesthesia under continuous monitoring. Digital rectal examination was normal. Initially the Olympus CF-160 flexible video colonoscope was then inserted in the rectum, gradually advanced into the cecum without any difficulty. Careful examination was performed as the scope was gradually being withdrawn. Ileocecal valve and the appendiceal orifice were visualized and appeared normal. Prep was excellent. Mucosa of the cecum, ascending colon, transverse colon, descending colon, sigmoid colon, and rectum appeared normal. Retroflexion was performed in the rectum and no lesions were seen. The patient tolerated the procedure well. IMPRESSION: Normal-appearing colon from rectum to cecum with no evidence of colorectal neoplasia. RECOMMENDATIONS: Findings of this examination were discussed with the patient as well as his family. He was advised to have repeat screening colonoscopy in 10 years..
[2024-05-20 09:17] VITALS: RESP 12
[2024-05-20 09:28] VITALS: BP 131/78; PULSE 64
== END 2024-05-20 09:47 | disposition home or self-care (01) ==
LOC: ORWHC2ENDO 07:41
PROVIDERS: ATTEND Internal Medicine Gastroenterology
DX: Z12.11 Encounter for screening for malignant neoplasm of colon (principal); I10 Essential (primary) hypertension; I25.10 Atherosclerotic heart disease of native coronary artery without angina pectoris; E78.5 Hyperlipidemia, unspecified; Z95.5 Presence of coronary angioplasty implant and graft; E11.9 Type 2 diabetes mellitus without complications; N40.0 Benign prostatic hyperplasia without lower urinary tract symptoms; Z79.82 Long term (current) use of aspirin; Z79.899 Other long term (current) drug therapy; Z79.84 Long term (current) use of oral hypoglycemic drugs; Z98.890 Other specified postprocedural states; Z88.8 Allergy status to other drugs, medicaments and biological substances; Z86.0100 Personal history of colon polyps, unspecified
CPT/HCPCS: J0360; J2704; G0105; 45378